=== PATIENT | female | born 1945 | race Caucasian/White ===

== ENCOUNTER → 2016-05-08 | Outpatient (CLI) | payer MEDICARE, BC ==
[2016-05-08 15:35] LABS: CH 29.5; HCT 37.6 % (34.0-46.0); HDW 2.72; HGB 11.7 gm/dL (11.4-16.0); Hypochromasia Slight; MCH 29.6 pg (25.0-35.0); MCHC 31.1 g/dL (31.0-37.0); MCV 95.3 fL (80.0-100.0); Mean Platelet Volume 6.1; RBC 3.95 m/uL (3.80-5.40); RDW 13.4 % (11.5-15.5); WBC 12.5 k/uL (3.8-10.6)
[2016-05-08 15:44] LABS: ALT 42 U/L (9-52); AST 31 U/L (14-36); Alkaline Phosphatase 99 U/L (38-126); Anion Gap 14 mmol/L; Blood Urea Nitrogen 12 mg/dL (7-17); Calcium 9.8 mg/dL (8.4-10.2); Carbon Dioxide 29 mmol/L (22-30); Chloride 100 mmol/L (98-107); Cholesterol 209 mg/dL (<200); Glucose 103 mg/dL (74-99); HDL Cholesterol 75 mg/dL (40-60); Non-African American GFR(MDRD) >60 (>60 ml/min/1.73 sqM); Sodium 143 mmol/L (137-145); Total Bilirubin 0.5 mg/dL (0.2-1.3); Triglycerides 178 mg/dL (<150)
== END | disposition home or self-care (01) ==
LOC: LABWHC1 14:53
PROVIDERS: ATTEND Physician Assistant Medical
DX: I25.10 Atherosclerotic heart disease of native coronary artery without angina pectoris (principal); I10 Essential (primary) hypertension; E55.9 Vitamin D deficiency, unspecified
CPT/HCPCS: 36415; 80053; 80061; 82306; 84443; 85027

== ENCOUNTER → 2016-12-01 | Outpatient (CLI) | payer MEDICARE, BC ==
[2016-12-01 15:38] LABS: CH 30.9; CHCM 32.6; HCT 40.8 % (34.0-46.0); HDW 2.39; HGB 12.8 gm/dL (11.4-16.0); MCH 29.9 pg (25.0-35.0); MCHC 31.4 g/dL (31.0-37.0); MCV 95.3 fL (80.0-100.0); Mean Platelet Volume 7.6; RBC 4.28 m/uL (3.80-5.40); RDW 14.7 % (11.5-15.5); WBC 8.1 k/uL (3.8-10.6)
[2016-12-01 15:42] LABS: Partial Thromboplastin Time 25.4 sec (22.0-30.0); Prothrombin Time 10.2 sec (9.0-12.0)
[2016-12-01 15:51] LABS: ALT 35 U/L (9-52); AST 26 U/L (14-36); Alkaline Phosphatase 101 U/L (38-126); Anion Gap 11 mmol/L; Blood Urea Nitrogen 16 mg/dL (7-17); Calcium 9.5 mg/dL (8.4-10.2); Carbon Dioxide 29 mmol/L (22-30); Chloride 101 mmol/L (98-107); Cholesterol 157 mg/dL (<200); Glucose 97 mg/dL (74-99); HDL Cholesterol 51 mg/dL (40-60); Non-African American GFR(MDRD) >60 (>60 ml/min/1.73 sqM); Potassium 3.6 mmol/L (3.5-5.1); Sodium 141 mmol/L (137-145); Total Bilirubin 0.5 mg/dL (0.2-1.3); Total Protein 6.4 g/dL (6.3-8.2)
== END | disposition home or self-care (01) ==
LOC: LABWHC1 14:55
PROVIDERS: ATTEND Physician Assistant Medical
DX: E78.5 Hyperlipidemia, unspecified (principal); I25.10 Atherosclerotic heart disease of native coronary artery without angina pectoris; T14.8 Other injury of unspecified body region; Z79.01 Long term (current) use of anticoagulants
CPT/HCPCS: 36415; 80053; 80061; 84443; 85027; 85610; 85730

== ENCOUNTER → 2017-03-03 | Outpatient (CLI) | payer MEDICARE, BC ==
[2017-03-03 14:01] VITALS: BP 117/55; PULSE 60; RESP 18; TEMP 97.8
--- NOTE | 2017-03-03 15:22 | P.CONS ---
History of Present Illness - Reason for Consult Consult date: 03/03/17 - History of Present Illness Since years old female with a chronic history of severe low back pain started several years ago, and she was diagnosed with lumbar degenerative disc disease lumbar facet arthropathy, she had the lumbar laminectomy and fusion surgery done by Dr. Horan at [facility] in January 2016, after the surgery patient started complaining of severe low back pain," mainly in the low back area on the right side, she denies any numbness or tingling sensation and reported that the pain intensity interfere with her ability to function and do activities of daily livings, denies any fever or night sweats which she denies any change in the bowel movement.or Urinations, no motor or sensory deficit, pain is constant interfere with quality of 5 intensity of the pain fluctuates between 4/10 increased to 8-9/10 , currently on pain medication [place] 7.5/325 3 times a day and Neurontin 600 mg both of them is not helping enough to control her pain, denies any side effect of the medication she denies any excessive drowsiness or sleepiness Past Medical History Past Medical History: CVA/TIA, GERD/Reflux, Hyperlipidemia, Hypertension, Myocardial Infarction ([place]), Osteoarthritis (OA), Skin Disorder Additional Past Medical History / Comment(s): hx migraines, Stroke-11/2015- drooping of upper lip, heart murmer, callus on left breast, Last Myocardial Infarction Date:: 10/2011 History of Any Multi-Drug Resistant Organisms: None Reported Past Surgical History: Appendectomy, Coronary Bypass/CABG, Heart Catheterization , Hysterectomy, Orthopedic Surgery Additional Past Surgical History / Comment(s): rt knee surgery, chris cataracts, heart cath (05/2013)-pt not sure if any stents, CABG 2011, Past Anesthesia/Blood Transfusion Reactions: No Reported Reaction Smoking Status: Smoker, current status unknown - Past Family History Brother(s) Family Medical History: Cancer Medications and Allergies Home Medications Medication Instructions Recorded Confirmed Type Atorvastatin Calcium [Lipitor] 40 mg PO HS 12/02/15 03/03/17 History Ergocalciferol [Vitamin D2 50,000 unit PO WE 12/02/15 03/03/17 History (DRISDOL)] Hydrocodone/Acetaminophen 7.5 mg PO TID 12/02/15 03/03/17 History [Hydrocodon-Acetaminoph 7.5-325] Isosorbide Mononitrate ER [Imdur] 60 mg PO DAILY 12/02/15 03/03/17 History Metoprolol Tartrate [Lopressor] 25 mg PO BID 12/02/15 03/03/17 History Omeprazole [PriLOSEC] 40 mg PO HS 12/02/15 03/03/17 History Vit C/E/Zn/Coppr/Lutein/Zeaxan 1 cap PO BID 12/02/15 03/03/17 History [Preservision Areds 2 Softgel] Clopidogrel [Plavix] 75 mg PO DAILY 12/05/15 03/03/17 History Aspirin [Adult Low Dose Aspirin EC] 81 mg PO DAILY 01/22/16 03/03/17 History Multivitamins, Thera [Multivitamin 1 tab PO DAILY 01/22/16 03/03/17 History (formulary)] Calcium Carb-Vit D 500Mg-200Un 1 tab PO BID 03/03/17 03/03/17 History [Oscal 500+D] Celecoxib [CeleBREX] 100 mg PO BID PRN #60 cap 03/03/17 Rx Diclofenac Sodium Gel [Voltaren 2 gm TOPICAL BID PRN #1 tube 03/03/17 Rx Gel] Furosemide [Lasix] 1 tab PO DAILY 03/03/17 03/03/17 History Gabapentin 1 tab PO BID 03/03/17 03/03/17 History traZODone HCL 1.5 tab PO HS 03/03/17 03/03/17 History Allergies Allergy/AdvReac Type Severity Reaction Status Date / Time latex Allergy Rash/Hives Verified 01/22/16 09:07 Physical Exam Vitals: Vital Signs Temp Pulse Resp BP Pulse Ox 03/03/17 13:48 97.8 F 60 18 117/55 96 Intake and Output 03/03/17 03/03/17 03/03/17 06:59 14:59 22:59 Other: Weight 61.235 kg Patient Weight 03/04/17 06:59 Weight 61.235 kg Social history : smoker , NO ETOH , NO Illegal drugs use Review of Systems : 1- Constitutional : no chills , no fever , no night sweats , 2- Ears : no ear discharge , no change in hearing 3-Nose, Mouth ,Throat ; no bleeding gums, no sore throat , no epistaxis , 4-Cardiovascular : Denies chest pain, , no orthopnea , no palpitation 5-Respiratory : Denies cough , no dyspnea , no hemoptysis 6-Gastrointestinal :, no change in bowel habits , no coffee- ground emesis . 7-Genitourinary : No hematuria , no discharge , no incontinence, 8-Musculoskeletal : No gait dysfunction , report low back pain , 9- Neurological : no ataxia , no tremor , no sezure , 10-Psychatric , no suicidal ideation no hallucination 11- Endocrine : no cold intolerence , no polyuria , no polydypsia , 12-Hematologic : no easy bleeding , no easy brusing , 13-Allergic / immunology : no angioedema , no wheezing ,no allergic rhinitis 14-Integumentary : no brttle nails , no change hair / nails , no foot/leg ulcers . Physical Examinations : 1-Constitutional : Cooperative , not in acute distress . 2-HEENT : nech ; supple , no Lymphadenopathy , no Thyromegaly , :eyes , no icterus, no photophobia . ENT : , normal oropharynx , no Thrush 3- Respiratory : Chest clear to auscultations Bilaterally , no wheezing . 4- Cardiovascular : regular rate and rhythem , S1 , S2 , no S3 , no S4. 5- Gastrointestinal: abdomen soft no tenderness , no organomegally . 6- Genitourinary : Defferred . 7-Integumentary : No cellulitis , no ulcers , normal skin turgor , no cyanotic . 8- neurologic : Cranial nerve II to XII intact , no focal neurological deffecit 9-psychatric : alert , oriented X 3 , appropriate affect , intact judgment and insight . 10-Lymphatic : no Lymphadenopathy. 11- musculoskeltal: Lumber spine moter stegnth lower extremities ,thigh and legs 5/5 Right side , 5/5 Left side deep tendon reflexes : normal Knee Jerk , normal ankle Jerk Negative lumber facet Loading Test Range of motion of the lumbar spine Flexion 60 degrees, extension 30 degrees strait leg raising test negative bilaterally Fabere test negative bilaterally Sever tenderness over the Sacroiliac joint on the Right side Results Comments: MRI of the lumbar spine done 2016 multilevel lumbar degenerative disc disease and multilevel lumbar facet arthropathy Assessment and Plan Plan: Assessment and plan= Right sacroiliitis history of lumbar laminectomy and fusion surgery ,but clinically this is not causing her back pain, Patient could benefit from Celebrex 100 mg twice a day ( we can not Use standard NSAID because patient currently on Plavix , would have to use a Nelson 2 inhibitor only, as patient had increased risk of bleeding when the regular NSAID , and also patient could benefit from local VOLTAREN gel 1% to be applied to the right buttock area, if patient continued to have pain then we can consider doing a right sacroiliac joint steroid injections under fluoroscopy guidance, but this has to be evaluated next visit , Time with Patient: Greater than 30
== END | disposition home or self-care (01) ==
LOC: PNWHC3 13:15
PROVIDERS: ATTEND Specialist
DX: M46.1 Sacroiliitis, not elsewhere classified (principal); E78.5 Hyperlipidemia, unspecified; I10 Essential (primary) hypertension; Z98.1 Arthrodesis status; Z79.891 Long term (current) use of opiate analgesic; Z79.899 Other long term (current) drug therapy; Z79.02 Long term (current) use of antithrombotics/antiplatelets; Z91.040 Latex allergy status
CPT/HCPCS: 99211

== ENCOUNTER → 2017-05-17 | Outpatient (CLI) | payer MEDICARE, BC ==
[2017-05-17 10:49] LABS: HCT 40.9 % (34.0-46.0); HGB 12.9 gm/dL (11.4-16.0); MCH 30.3 pg (25.0-35.0); MCHC 31.5 g/dL (31.0-37.0); Mean Platelet Volume 7.1; Platelet Count 266 k/uL (150-450); RBC 4.26 m/uL (3.80-5.40); RDW 13.3 % (11.5-15.5)
[2017-05-17 11:04] LABS: ALT 33 U/L (9-52); AST 24 U/L (14-36); Albumin 3.8 g/dL (3.5-5.0); Alkaline Phosphatase 108 U/L (38-126); Anion Gap 9 mmol/L; Blood Urea Nitrogen 20 mg/dL (7-17); Calcium 9.5 mg/dL (8.4-10.2); Carbon Dioxide 29 mmol/L (22-30); Chloride 104 mmol/L (98-107); Cholesterol 153 mg/dL (<200); Glucose 110 mg/dL (74-99); HDL Cholesterol 52 mg/dL (40-60); LDL Cholesterol,Calculated 83 mg/dL (0-99); Potassium 3.8 mmol/L (3.5-5.1); Sodium 142 mmol/L (137-145); Total Bilirubin 0.5 mg/dL (0.2-1.3); Total Protein 6.3 g/dL (6.3-8.2); Triglycerides 90 mg/dL (<150)
== END | disposition home or self-care (01) ==
LOC: LABWHC1 10:15
PROVIDERS: ATTEND Physician Assistant Medical
DX: E55.9 Vitamin D deficiency, unspecified (principal); M85.80 Other specified disorders of bone density and structure, unspecified site; M19.90 Unspecified osteoarthritis, unspecified site; I25.10 Atherosclerotic heart disease of native coronary artery without angina pectoris; E78.5 Hyperlipidemia, unspecified
CPT/HCPCS: 36415; 80053; 80061; 82306; 84443; 85027

== ENCOUNTER 2017-11-27 14:05 | Emergency (ER) | payer MEDICARE, BC ==
--- NOTE | 2017-11-27 18:03 | ED ---
General Adult HPI - General Chief complaint: Shortness of Breath Stated complaint: LUQ Back pain Time Seen by Provider: 11/27/17 17:40 Source: patient, family, RN notes reviewed Mode of arrival: wheelchair Limitations: no limitations - History of Present Illness Initial comments: Patient 72-year-old female presented to the emergency room today with a chief complaint of left-sided back pain worse with deep inspiration or cough. She does not that symptoms started yesterday when she woke up in the morning coughing. She states that since that time attached takes deep breath or coughs she has this sharp pain located in the left side of her back. Patient does admit that morning cough is normal for her she is a smoker. Patient denies any other complaints or symptoms currently. Patient denies any recent fever, chills , shortness of breath, chest pain, abdominal pain, nausea or vomiting, numbness or tingling, dysuria or hematuria, constipation or diarrhea, headaches or visual changes, or any other complaints. - Related Data Home Medications Medication Instructions Recorded Confirmed Atorvastatin Calcium [Lipitor] 40 mg PO HS 12/02/15 03/03/17 Ergocalciferol [Vitamin D2 50,000 unit PO WE 12/02/15 03/03/17 (DRISDOL)] Hydrocodone/Acetaminophen 7.5 mg PO TID 12/02/15 03/03/17 [Hydrocodone-Acetamin 7.5-325] Isosorbide Mononitrate ER [Imdur] 60 mg PO DAILY 12/02/15 03/03/17 Metoprolol Tartrate [Lopressor] 25 mg PO BID 12/02/15 03/03/17 Omeprazole [PriLOSEC] 40 mg PO HS 12/02/15 03/03/17 Vit C/E/Zn/Coppr/Lutein/Zeaxan 1 cap PO BID 12/02/15 03/03/17 [Preservision Areds 2 Softgel] Clopidogrel [Plavix] 75 mg PO DAILY 12/05/15 03/03/17 Aspirin [Adult Low Dose Aspirin EC] 81 mg PO DAILY 01/22/16 03/03/17 Multivitamins, Thera [Multivitamin 1 tab PO DAILY 01/22/16 03/03/17 (formulary)] Calcium Carb-Vit D 500Mg-200Un 1 tab PO BID 03/03/17 03/03/17 [Oscal 500+D] Furosemide [Lasix] 1 tab PO DAILY 03/03/17 03/03/17 Gabapentin 1 tab PO BID 03/03/17 03/03/17 traZODone HCL 1.5 tab PO HS 03/03/17 03/03/17 Previous Rx's Medication Instructions Recorded Celecoxib [CeleBREX] 100 mg PO BID PRN #60 cap 03/03/17 Diclofenac Sodium Gel [Voltaren 2 gm TOPICAL BID PRN #1 tube 03/03/17 Gel] Albuterol Nebulized [Ventolin 2.5 mg INHALATION Q4H PRN 10 Days 11/27/17 Nebulized] nebu Azithromycin [Zithromax Z-pack] 0 mg PO DIRECTED #6 tab 11/27/17 Allergies Allergy/AdvReac Type Severity Reaction Status Date / Time latex Allergy Rash/Hives Verified 01/22/16 09:07 Review of Systems ROS Statement: Those systems with pertinent positive or pertinent negative responses have been documented in the HPI. ROS Other: All systems not noted in ROS Statement are negative. Past Medical History Past Medical History: CVA/TIA, GERD/Reflux, Hyperlipidemia, Hypertension, Myocardial Infarction ([place]), Osteoarthritis (OA), Skin Disorder Additional Past Medical History / Comment(s): hx migraines, Stroke-11/2015- drooping of upper lip, heart murmer, callus on left breast, Last Myocardial Infarction Date:: 10/2011 History of Any Multi-Drug Resistant Organisms: None Reported Past Surgical History: Appendectomy, Back Surgery, Coronary Bypass/CABG, Heart Catheterization, Hysterectomy, Orthopedic Surgery Additional Past Surgical History / Comment(s): rt knee surgery, chris cataracts, heart cath (05/2013)-pt not sure if any stents, CABG 2011 Past Anesthesia/Blood Transfusion Reactions: No Reported Reaction Past Psychological History: No Psychological Hx Reported Smoking Status: Current every day smoker Past Alcohol Use History: None Reported Past Drug Use History: None Reported - Past Family History Brother(s) Family Medical History: Cancer General Exam - General Exam Comments Initial Comments: General: The patient is awake and alert, in no distress, and does not appear acutely ill. Eye: Pupils are equal, round and reactive to light, extra-ocular movements are intact. No nystagmus. There is normal conjunctiva bilaterally. No signs of icterus. Ears, nose, mouth and throat: There are moist mucous membranes and no oral lesions. Neck: The neck is supple, there is no tenderness or JVD. Cardiovascular: There is a regular rate and rhythm. No murmur, rub or gallop is appreciated. Respiratory: Decreased lung sounds bilaterally with expiratory wheeze. are non- labored, breath sounds are equal. No stridor, rales, or rhonchi. Musculoskeletal: Normal ROM, no tenderness. Strength 5/5. Sensation intact. Pulses equal bilaterally 2+. Neurological: A&O x 3. CN II-XII intact, There are no obvious motor or sensory deficits. Coordination appears grossly intact. Speech is normal. Skin: Skin is warm and dry and no rashes or lesions are noted. Psychiatric: Cooperative, appropriate mood & affect, normal judgment. Limitations: no limitations Course Vital Signs 11/27/17 11/27/17 15:20 18:13 Temperature 97.8 F Pulse Rate 47 L Respiratory 16 20 Rate Blood Pressure 116/70 O2 Sat by Pulse 98 Oximetry EKG Findings - EKG Comments: EKG Findings:: EKG performed at 1747: Shows bradycardia with first-degree AV block at 43 bpm. TX interval 230. QRS 134. QT/QTC 500/422. EKG shows evidence for a left axis deviation and left bundle branch block which was seen previously on EKG on 12/05/2015. Medical Decision Making - Medical Decision Making Patient's labs been reviewed. Patient does take Plavix. Patient's chest x-ray does reveal a early infiltrate on the left side were patient is experiencing pain with the cough. Patient does have a nebulizer machine at home. Will be given albuterol for her breathing treatments and started on antibiotics given dose of Rocephin here in emergency room. Case was discussed with attending physician Dr. Anderson. Results discussed with patient. Patient states understanding and is in agreement with the plan. - Lab Data Result diagrams: 11/27/17 18:10 11/27/17 18:10 Lab Results 11/27/17 11/27/17 11/27/17 Range/Units 18:10 18:10 18:10 WBC 8.9 (3.8-10.6) k/uL RBC 4.19 (3.80-5.40) m/uL Hgb 12.8 (11.4-16.0) gm/dL Hct 39.9 (34.0-46.0) % MCV 95.3 (80.0-100.0) fL MCH 30.6 (25.0-35.0) pg MCHC 32.1 (31.0-37.0) g/dL RDW 13.2 (11.5-15.5) % Plt Count 278 (150-450) k/uL Neutrophils % 65 % Lymphocytes % 24 % Monocytes % 4 % Eosinophils % 3 % Basophils % 1 % Neutrophils # 5.8 (1.3-7.7) k/uL Lymphocytes # 2.2 (1.0-4.8) k/uL Monocytes # 0.4 (0-1.0) k/uL Eosinophils # 0.3 (0-0.7) k/uL Basophils # 0.1 (0-0.2) k/uL PT (9.0-12.0) sec INR (<1.2) APTT (22.0-30.0) sec D-Dimer (<0.60) mg/L FEU Sodium 140 (137-145) mmol/L Potassium 4.6 (3.5-5.1) mmol/L Chloride 108 H (98-107) mmol/L Carbon Dioxide 26 (22-30) mmol/L Anion Gap 6 mmol/L BUN 17 (7-17) mg/dL Creatinine 0.70 (0.52-1.04) mg/dL Est GFR (CKD-EPI)AfAm >90 (>60 ml/min/1.73 sqM) Est GFR (CKD-EPI)NonAf 86 (>60 ml/min/1.73 sqM) Glucose 158 H (74-99) mg/dL Calcium 9.3 (8.4-10.2) mg/dL Total Bilirubin 0.5 (0.2-1.3) mg/dL AST 20 (14-36) U/L ALT 22 (9-52) U/L Alkaline Phosphatase 80 (38-126) U/L Total Creatine Kinase 25 L (30-135) U/L CK-MB (CK-2) 0.7 (0.0-2.4) ng/mL CK-MB (CK-2) Rel Index 2.8 Troponin I <0.012 (0.000-0.034) ng/mL Total Protein 6.2 L (6.3-8.2) g/dL Albumin 3.7 (3.5-5.0) g/dL 11/27/17 Range/Units 18:10 WBC (3.8-10.6) k/uL RBC (3.80-5.40) m/uL Hgb (11.4-16.0) gm/dL Hct (34.0-46.0) % MCV (80.0-100.0) fL MCH (25.0-35.0) pg MCHC (31.0-37.0) g/dL RDW (11.5-15.5) % Plt Count (150-450) k/uL Neutrophils % % Lymphocytes % % Monocytes % % Eosinophils % % Basophils % % Neutrophils # (1.3-7.7) k/uL Lymphocytes # (1.0-4.8) k/uL Monocytes # (0-1.0) k/uL Eosinophils # (0-0.7) k/uL Basophils # (0-0.2) k/uL PT 10.5 (9.0-12.0) sec INR 1.1 (<1.2) APTT 24.9 (22.0-30.0) sec D-Dimer 0.56 (<0.60) mg/L FEU Sodium (137-145) mmol/L Potassium (3.5-5.1) mmol/L Chloride (98-107) mmol/L Carbon Dioxide (22-30) mmol/L Anion Gap mmol/L BUN (7-17) mg/dL Creatinine (0.52-1.04) mg/dL Est GFR (CKD-EPI)AfAm (>60 ml/min/1.73 sqM) Est GFR (CKD-EPI)NonAf (>60 ml/min/1.73 sqM) Glucose (74-99) mg/dL Calcium (8.4-10.2) mg/dL Total Bilirubin (0.2-1.3) mg/dL AST (14-36) U/L ALT (9-52) U/L Alkaline Phosphatase (38-126) U/L Total Creatine Kinase (30-135) U/L CK-MB (CK-2) (0.0-2.4) ng/mL CK-MB (CK-2) Rel Index Troponin I (0.000-0.034) ng/mL Total Protein (6.3-8.2) g/dL Albumin (3.5-5.0) g/dL Disposition Clinical Impression: CAP (community acquired pneumonia) Disposition: HOME SELF-CARE Condition: Good Instructions: Community Acquired Pneumonia (ED) Additional Instructions: Please use medication as discussed. Please follow-up with family doctor in the next 2 days of symptoms have not improved. Please return to emergency room if the symptoms increase or worsen or for any other concerns. Prescriptions: Albuterol Nebulized [Ventolin Nebulized] 2.5 mg INHALATION Q4H PRN 10 Days nebu PRN Reason: Cough Azithromycin [Zithromax Z-pack] 0 mg PO DIRECTED #6 tab Is patient prescribed a controlled substance at d/c from ED?: No Referrals: Samia Aly PAC [Family Provider] - 1-2 days Time of Disposition: 19:53
[2017-11-27 18:54] LABS: Basophils # (A) 0.1 k/uL (0-0.2); Basophils % (A) 1 %; Eosinophils # (A) 0.3 k/uL (0-0.7); Eosinophils % (A) 3 %; HCT 39.9 % (34.0-46.0); HGB 12.8 gm/dL (11.4-16.0); Lymphocytes # (A) 2.2 k/uL (1.0-4.8); Lymphocytes % (A) 24 %; MCH 30.6 pg (25.0-35.0); MCHC 32.1 g/dL (31.0-37.0); MCV 95.3 fL (80.0-100.0); Mean Platelet Volume 6.8; Monocytes # (A) 0.4 k/uL (0-1.0); Monocytes % (A) 4 %; Neutrophils # (A) 5.8 k/uL (1.3-7.7); Neutrophils % (A) 65 %; Platelet Count 278 k/uL (150-450); RBC 4.19 m/uL (3.80-5.40); RDW 13.2 % (11.5-15.5); WBC 8.9 k/uL (3.8-10.6)
[2017-11-27 19:10] LABS: Creatine Kinase 25 U/L (30-135)
[2017-11-27 19:13] LABS: ALT 22 U/L (9-52); AST 20 U/L (14-36); Albumin 3.7 g/dL (3.5-5.0); Alkaline Phosphatase 80 U/L (38-126); Anion Gap 6 mmol/L; Blood Urea Nitrogen 17 mg/dL (7-17); Calcium 9.3 mg/dL (8.4-10.2); Carbon Dioxide 26 mmol/L (22-30); Chloride 108 mmol/L (98-107); Glucose 158 mg/dL (74-99); Potassium 4.6 mmol/L (3.5-5.1); Sodium 140 mmol/L (137-145); Total Bilirubin 0.5 mg/dL (0.2-1.3); Total Protein 6.2 g/dL (6.3-8.2)
[2017-11-27 19:23] LABS: Creatine Kinase MB 0.7 ng/mL (0.0-2.4); Troponin I <0.012 ng/mL (0.000-0.034)
[2017-11-27 19:31] LABS: D-Dimer 0.56 mg/L FEU (<0.60); INR 1.1 (<1.2); Partial Thromboplastin Time 24.9 sec (22.0-30.0); Prothrombin Time 10.5 sec (9.0-12.0)
--- NOTE | 2017-11-27 19:46 | XR ---
EXAMINATION TYPE: XR chest 2V DATE OF EXAM: 11/27/2017 COMPARISON: 04/06/2016 INDICATION: Pain TECHNIQUE: Frontal and lateral views of the chest are obtained. FINDINGS: The heart size is normal. The pulmonary vasculature is slightly prominent. Diffuse increased lung markings can be related to some pulmonary edema. There is slightly increased d ensity in the left upper lobe. Correlate for atelectasis. Developing pneumonia could be considered. Pulmonary contusion could be considered if there is been trauma. IMPRESSION: 1. Suggestion of mild infiltrate periphery left upper lobe. Atelectasis or developing pneumonia could be considered. 2. Suggestion of some mild prominence of the pulmonary vascular markings
[2017-11-27] MEDS ORDERED: cefTRIAXone IN SWFI 1,000 MG/10 ML SYRINGE IVP STA (19:50)
[2017-11-27 20:08] VITALS: BP 160/66; PULSE 51; RESP 18; TEMP 97.1
== END 2017-11-27 20:07 | disposition home or self-care (01) ==
LOC: EC 14:05
DX: J18.9 Pneumonia, unspecified organism (principal); M54.9 Dorsalgia, unspecified; K21.9 Gastro-esophageal reflux disease without esophagitis; E78.5 Hyperlipidemia, unspecified; I10 Essential (primary) hypertension; I25.2 Old myocardial infarction; M19.90 Unspecified osteoarthritis, unspecified site; F17.200 Nicotine dependence, unspecified, uncomplicated; Z86.73 Personal history of transient ischemic attack (TIA), and cerebral infarction without residual deficits; Z79.82 Long term (current) use of aspirin; Z79.891 Long term (current) use of opiate analgesic; Z79.899 Other long term (current) drug therapy; Z79.01 Long term (current) use of anticoagulants; Z91.040 Latex allergy status; Z95.818 Presence of other cardiac implants and grafts; Z95.1 Presence of aortocoronary bypass graft
CPT/HCPCS: 36415; 71046; 80053; 82550; 82553; 84484; 85025; 85379; 85610; 85730; 93005; 99285

== ENCOUNTER → 2018-04-28 | Outpatient (CLI) | payer MEDICARE, BC ==
[2018-04-29 04:09] LABS: Albumin 4.3 g/dL (3.80-4.90); Albumin/Globulin Ratio 2.53 (1.20-2.10); Anion Gap 6.2 mmol/L (4.00-12.00); Calcium 9.2 mg/dL (8.7-10.3); Carbon Dioxide 27.8 mmol/L (21.6-31.8); Globulin 1.7 g/dL (1.6-3.3); LDL Cholesterol,Calculated 107.4 mg/dL (0.0-131.0); Potassium 4.9 mmol/L (3.5-5.5); Total Bilirubin 0.5 mg/dL (0.3-1.2); VLDL Calculation 21.6 mg/dL (5.00-40.00)
== END ==
LOC: LABWHC1 14:50
PROVIDERS: ATTEND Internal Medicine Interventional Cardiology
DX: I10 Essential (primary) hypertension (principal); I25.10 Atherosclerotic heart disease of native coronary artery without angina pectoris; E55.9 Vitamin D deficiency, unspecified
CPT/HCPCS: 36415; 80053; 80061; 82306; 84443

== ENCOUNTER → 2018-04-28 | Outpatient (CLI) | payer MEDICARE, BC ==
[2018-04-28 16:10] LABS: HCT 41.3 % (34.0-46.0); HGB 13.5 gm/dL (11.4-16.0); MCH 31.3 pg (25.0-35.0); MCHC 32.6 g/dL (31.0-37.0); Mean Platelet Volume 7.1; Platelet Count 249 k/uL (150-450); RDW 13.6 % (11.5-15.5); WBC 9.2 k/uL (3.8-10.6)
== END ==
LOC: LABPAT 14:48
PROVIDERS: ATTEND Internal Medicine Interventional Cardiology
DX: Z01.812 Encounter for preprocedural laboratory examination (principal); I70.213 Atherosclerosis of native arteries of extremities with intermittent claudication, bilateral legs; I10 Essential (primary) hypertension; I25.10 Atherosclerotic heart disease of native coronary artery without angina pectoris
CPT/HCPCS: 85027

== ENCOUNTER → 2018-05-17 | Day surgery (SDC) | payer MEDICARE, BC ==
[2018-05-12 16:13] VITALS: BMI 22.3
[~2018-05-17] MED LIST: ASPIRIN 81 MG ONE; ATROPINE SULFATE 0.1 MG/ML 10ML SYRINGE ONE; HYDROcodone/APAP 7.5-325MG 1 EACH TAB ONE; IOPAMIDOL-300 100ML BTL INJ ONE; LIDOCAINE 2% (PF) 20 MG/ML 10 ML AMP SQ ONE; MIDAZOLAM 2 MG/2 ML VIAL IV ONE; SODIUM CHLORIDE 0.9% 1,000 ML IV SCH; SODIUM CHLORIDE 0.9% 1,000 ML in EMPTY BAG 1 BAG IV ONE; fentaNYL (PF) 50 MCG/ML 5 ML AMP IVP PRN; hydrALAZINE HCL 20 MG/ML 1 ML VIAL IVP PRN
[2018-05-17 07:05] VITALS: TEMP 97.6
[2018-05-17] MEDS: fentaNYL (PF) 50 MCG/ML 2 ML AMP IV ONE ×2 (07:52→08:08)
--- NOTE | 2018-05-17 09:26 | AN ---
ANGIOGRAPHY REPORT DATE OF SERVICE: 05/17/2018 PERFORMING PHYSICIAN: Chuy Cespedes MD, Airport Traffic Controller. PROCEDURE PERFORMED: 1. An abdominal aortogram. 2. Bilateral lower extremities runoff. INDICATION: This is a pleasant 73-year-old female patient with coronary artery disease and prior coronary artery bypass grafting as well as hypertension and dyslipidemia who was experiencing bilateral lower extremities discomfort. She underwent a noninvasive study and that revealed severe PAD. Because of that, she was brought today to undergo an abdominal aortogram and bilateral lower extremity runoff. APPROACH: Right common femoral artery. COMPLICATION: None. LEVEL OF SEDATION: Moderate sedation length of 15 minutes. PROCEDURE DESCRIPTION: After obtaining an informed consent, the patient was brought to the director of cath lab. The right common femoral artery was cannulated using micropuncture technique and a micropuncture wire passed easily, then I placed a 6-Jordanian sheath in the right common femoral artery. After that, I did an abdominal aortogram and bilateral lower extremities runoff using 4- Jordanian pigtail catheter which was initially placed at the level of the renal arteries, then it was pulled into above the bifurcation of the aorta to right and left common iliac arteries. The procedure was completed without any complication. SELECTIVE PERIPHERAL ANGIOGRAM: 1. The aorta appeared to be calcified with mild disease only. 2. COMMON ILIAC ARTERIES: The right common iliac artery appeared to have intermediate disease only and the left common iliac artery appeared to be normal. 3. INTERNAL ILIAC ARTERIES: The right and left internals are patent. 4. EXTERNAL ILIAC ARTERIES: The right and left external iliac arteries appeared to be normal. 5. COMMON FEMORAL ARTERIES: The right and left common have mild disease only. 6. PROFUNDA: The right and left profunda are patent. 7. SFA: The right SFA appears to have mild disease only and the left SFA is subtotally occluded in the midportion. 8. POPLITEAL: The right and left popliteal appeared to be normal. 9. BELOW THE KNEE: There are 3 vessel runoff below the knee bilaterally. CONCLUSION: 1. Intermediate disease involving the right common iliac artery. 2. Subtotally occluded left SFA. POSTPROCEDURE MANAGEMENT: 1. ORACLE WMS CONSULTANT of the left SFA. 2. At the same time, I will assess the severity of the right common iliac artery when I approach the right groin. MMODL / IJN: [id number] /
[2018-05-17 09:42] VITALS: RESP 18
[2018-05-17 10:11] VITALS: BP 105/64; PULSE 48
--- NOTE | 2018-05-17 14:34 | IR ---
EXAMINATION TYPE: IR angio abdominal w runoff DATE OF EXAM: 05/17/2018 CLINICAL HISTORY: Peripheral vascular disease, left leg pain. TECHNIQUE: Fluoroscopy. COMPARISON: None. FINDINGS: Fluoroscopic guidance was provided during abdominal angiogram with lower extremity runoff procedure performed by Dr. Cespedes. A total of 1.3 minutes of fluoroscopic time was utilized during the procedure and 6 cine runs are acquired. Images acquired show access via right groin with subsequent angiogram and lower extremity runoff. Surgical change L4-L5 level is incidentally seen. Please refer to procedure note as I was not present nor performed procedure for further details. IMPRESSION: As Above.
== END | disposition home or self-care (01) ==
LOC: CATHCVL 06:27
PROVIDERS: ATTEND Internal Medicine Interventional Cardiology
DX: I70.213 Atherosclerosis of native arteries of extremities with intermittent claudication, bilateral legs (principal); I10 Essential (primary) hypertension; I25.10 Atherosclerotic heart disease of native coronary artery without angina pectoris; I77.9 Disorder of arteries and arterioles, unspecified; I35.0 Nonrheumatic aortic (valve) stenosis; I70.0 Atherosclerosis of aorta; F17.210 Nicotine dependence, cigarettes, uncomplicated; Q21.1 Atrial septal defect; I95.2 Hypotension due to drugs; E78.5 Hyperlipidemia, unspecified; I25.2 Old myocardial infarction; Z79.02 Long term (current) use of antithrombotics/antiplatelets; Z79.82 Long term (current) use of aspirin; Z95.1 Presence of aortocoronary bypass graft; Z79.899 Other long term (current) drug therapy
CPT/HCPCS: 36200; 75625; 75716; C1769 ×4; C1894 ×2; J2250; J2001; J0461; J3010; Q9967

== ENCOUNTER → 2018-06-07 | Outpatient (CLI) | payer MEDICARE, BC ==
[2018-06-07 14:39] LABS: HCT 42.8 % (34.0-46.0); HGB 13.7 gm/dL (11.4-16.0); MCH 30.7 pg (25.0-35.0); MCV 95.9 fL (80.0-100.0); Mean Platelet Volume 6.9; Platelet Count 262 k/uL (150-450); RBC 4.46 m/uL (3.80-5.40); RDW 13.6 % (11.5-15.5); WBC 9.7 k/uL (3.8-10.6)
[2018-06-07 14:55] LABS: Potassium 4.6 mmol/L (3.5-5.1)
== END ==
LOC: LABPAT 14:07
PROVIDERS: ATTEND Internal Medicine Interventional Cardiology
DX: Z01.812 Encounter for preprocedural laboratory examination (principal); I25.10 Atherosclerotic heart disease of native coronary artery without angina pectoris; I73.9 Peripheral vascular disease, unspecified
CPT/HCPCS: 36415; 80051; 82565; 84520; 85027

== ENCOUNTER 2018-06-21 07:46 | Day surgery (SDC) | payer MEDICARE, BC ==
[2018-06-16 09:44] VITALS: BMI 22.6
[~2018-06-21 07:46] MED LIST changes: -ASPIRIN 81 MG ONE; -ATROPINE SULFATE 0.1 MG/ML 10ML SYRINGE ONE; -HYDROcodone/APAP 7.5-325MG 1 EACH TAB ONE; -IOPAMIDOL-300 100ML BTL INJ ONE; -LIDOCAINE 2% (PF) 20 MG/ML 10 ML AMP SQ ONE; -MIDAZOLAM 2 MG/2 ML VIAL IV ONE; -SODIUM CHLORIDE 0.9% 1,000 ML IV SCH; -fentaNYL (PF) 50 MCG/ML 5 ML AMP IVP PRN; -hydrALAZINE HCL 20 MG/ML 1 ML VIAL IVP PRN
[2018-06-21] MEDS ORDERED: ASPIRIN 81 MG ONE (08:03)
[2018-06-21] MEDS ORDERED: niCARdipine 25 MG/10 ML VIAL ONE (09:23)
[2018-06-21] MEDS ORDERED: SODIUM CHLORIDE 0.9% (PF) 10 ML VIAL ONE (09:23)
[2018-06-21] MEDS: fentaNYL (PF) 50 MCG/ML 2 ML AMP IV ONE ×2 (09:27→09:42)
[2018-06-21] MEDS ORDERED: MIDAZOLAM 2 MG/2 ML VIAL IV ONE ×2 (09:28→09:42)
[2018-06-21] MEDS ORDERED: LIDOCAINE 1% INJ 10MG/ML (20 ML MDV) SQ ONE ×3 (09:30→09:40)
[2018-06-21] MEDS ORDERED: HEPARIN SODIUM 1,000 UN/ML (10ML VL) IV ONE ×2 (09:42→09:43)
[2018-06-21] MEDS ORDERED: NITROGLYCERIN 1000MCG/10ML SYRINGE INTRAARTER ONE (10:15)
[2018-06-21] MEDS ORDERED: CLOPIDOGREL 75 MG TAB PO ONE (10:19)
[2018-06-21] MEDS ORDERED: IOPAMIDOL-250 100ML BTL INTRAARTER ONE (10:24)
[2018-06-21] MEDS ORDERED: ALBUTEROL NEBULIZED 2.5 MG/3 ML INHALATION PRN (10:30)
[2018-06-21] MEDS ORDERED: SODIUM CHLORIDE 0.9% 1,000 ML IV SCH (10:45)
--- NOTE | 2018-06-21 10:56 | LTR ---
June 21, 2018 Re: Elenita Monzon Dear Dr. Barros Ms. Elenita Monzon underwent successful atherectomy and balloon angioplasty of the left femoral artery with good angiographic results and without any complication. Thank you for allowing me to participate in her care and please do not hesitate to call with any question or concern. Sincerely, MD CARLITA Bravo / MARYANN: [id number] /
--- NOTE | 2018-06-21 11:11 | AN ---
ANGIOGRAPHY REPORT DATE OF SERVICE: June 21, 2018 PERFORMING PHYSICIAN: Chuy Cespedes MD, spa coordinator. PROCEDURE PERFORMED: 1. Selective left [id number] angiogram. 2. Selective left popliteal/SFA angiogram. 3. Selective right common iliac artery angiogram. 4. Selective right common femoral artery angiogram. 5. An atherectomy of the left SFA using the TurboHawk atherectomy device. 6. Successful balloon angioplasty of the left SFA using 5 x 80 mm drug-coated balloon which was with good angiographic results and without any complication. INDICATION: This is a pleasant 73-year-old female patient with known history of coronary artery disease and prior coronary artery bypass grafting as well as peripheral arterial disease as well as hypertension and dyslipidemia who was experiencing left leg intermittent claudication and underwent a peripheral angiogram and that showed critical disease involving the left SFA. Because of that, she was brought today to undergo a REAL ESTATE AGENT/BROKER of the left SFA. APPROACH: Right common femoral artery. COMPLICATION: None. LEVEL OF SEDATION: Moderate with sedation length of 56 minutes. PROCEDURE DESCRIPTION: After obtaining an informed consent, the patient was brought to cardiac corn lab technician. The right common femoral artery was cannulated using micropuncture technique, under ultrasound guidance, the micropuncture wire passed easily then I placed a 6-Malawian sheath 11 cm in the right common femoral artery. After that I did select the left SFA using a 4-Malawian Rim catheter and 0.035 Waterproof Advantage wire. After that I did exchange my 11 cm 6-Malawian sheath into 55 cm 6-Malawian Raabe sheath using 0.035 Waterproof Advantage wire. The tip of the Raabe sheath was positioned in the left common femoral artery. After that anticoagulation was initiated using heparin and the patient was given 6000 units of heparin. Subsequently, I did selective left [id number] angiogram, selective left popliteal and SFA angiogram and that revealed 3-vessel runoff below the knee on the left side with critical disease involving the left SFA. At that point I did cross the lesion in the left SFA using 0.[address] wire. Then I did atherectomy using the TurboHawk device with extraction of plaque. After that, I did balloon angioplasty initially using 4 mm regular balloon and then 5 mm x 80 mm drug coated balloon which was which was inflated for 3 minutes. The following angiogram showed good angiographic results with non-flow limiting dissection seen. I decided to stop at that point. After that I did pull the long sheath proximal to the right common iliac artery where I did a selective right common iliac artery angiogram which showed only mild disease in the right common iliac artery. The procedure was completed without any complication. I did exchange my long sheath into short sheath using a 0.035 Waterproof Advantage wire. POSTPROCEDURE MANAGEMENT: 1. Dual antiplatelet therapy. 2. Risk factors modifications. 3. Follow up with the patient. MMODL / IJN: [id number] /
[2018-06-21] MEDS: HYDROcodone/APAP 7.5-325MG 1 EACH TAB PO PRN ×2 (12:17→22:52)
[2018-06-21] MEDS ORDERED: SODIUM CHLORIDE 0.9% 1,000 ML IV ONE (13:16)
--- NOTE | 2018-06-21 14:20 | IR ---
Fluoroscopy HISTORY: Peripheral vascular occlusive disease 9.1 minutes fluoroscopy time supplied to the referring clinician. 6859 intraoperative C-arm images d ocument the procedure. See dictated report from cardiology.
[2018-06-21] MEDS: HYDROmorphone 0.5 MG/0.5 ML SYRINGE IVP PRN ×2 (15:13→19:03)
[2018-06-21] MEDS: VIT A,C & E-LUTEIN-MINERALS 1 EACH TAB PO SCH (20:18)
[2018-06-21] MEDS: CALCIUM CARB-VIT D 500MG-200UN 1 EACH TAB PO SCH (20:19)
[2018-06-21] MEDS ORDERED: ATORVASTATIN 80 MG TAB PO SCH (21:00)
[2018-06-21] MEDS ORDERED: traZODone HCL 50 MG TAB PO SCH (21:00)
[2018-06-21] MEDS ORDERED: PANTOPRAZOLE 40 MG TABLET PO SCH (21:00)
[2018-06-22] MEDS: HYDROmorphone 0.5 MG/0.5 ML SYRINGE IVP PRN (04:49)
[2018-06-22 07:23] LABS: Basophils # (A) 0.1 k/uL (0-0.2); Basophils % (A) 1 %; Eosinophils # (A) 0.2 k/uL (0-0.7); Eosinophils % (A) 3 %; HCT 35.9 % (34.0-46.0); HGB 11.6 gm/dL (11.4-16.0); Lymphocytes # (A) 1.8 k/uL (1.0-4.8); Lymphocytes % (A) 23 %; MCH 30.7 pg (25.0-35.0); MCHC 32.3 g/dL (31.0-37.0); MCV 95.1 fL (80.0-100.0); Mean Platelet Volume 7.1; Monocytes # (A) 0.5 k/uL (0-1.0); Monocytes % (A) 7 %; Neutrophils # (A) 5.2 k/uL (1.3-7.7); Neutrophils % (A) 65 %; Platelet Count 202 k/uL (150-450); RBC 3.78 m/uL (3.80-5.40)
[2018-06-22 07:34] LABS: Calcium 8.8 mg/dL (8.4-10.2); Potassium 3.7 mmol/L (3.5-5.1)
[2018-06-22] MEDS ORDERED: buPROPion XL 150 MG TAB.ER.24H PO SCH (09:00)
[2018-06-22] MEDS ORDERED: ASPIRIN 81 MG PO SCH (09:00)
[2018-06-22] MEDS ORDERED: FUROSEMIDE 40 MG TAB PO SCH (09:00)
[2018-06-22] MEDS ORDERED: ISOSORBIDE MONONITRATE ER 30 MG TAB.ER.24H PO SCH (09:00)
[2018-06-22] MEDS ORDERED: NICOTINE 14MG/24HR PATCH TRANSDERM SCH (09:00)
[2018-06-22] MEDS ORDERED: METOPROLOL TARTRATE 25 MG TAB PO SCH (09:00)
[2018-06-22] MEDS ORDERED: CLOPIDOGREL 75 MG TAB PO SCH (09:00)
[2018-06-22 09:02] VITALS: BP 117/58; PULSE 53; RESP 14; TEMP 97.5
[2018-06-22] MEDS: CALCIUM CARB-VIT D 500MG-200UN 1 EACH TAB PO SCH (09:12)
[2018-06-22] MEDS: VIT A,C & E-LUTEIN-MINERALS 1 EACH TAB PO SCH (09:13)
[2018-06-22] MEDS: HYDROcodone/APAP 7.5-325MG 1 EACH TAB PO PRN (09:23)
--- NOTE | 2018-06-22 10:27 | DS ---
DISCHARGE SUMMARY ADMISSION DATE: 06/21/2018 DATE OF DISCHARGE: 06/22/2018 BRIEF HISTORY: This is a pleasant 73-year-old female patient who was admitted to the hospital yesterday and underwent successful atherectomy and angioplasty of the left SFA with good angiographic results and without any complication from right groin approach. On follow up with her today, she is doing good. The right groin is soft with mild tenderness and without any bruises. She is going to be discharged home on dual anti-platelet therapy and follow up with the patient in a week in the office. MMODL / IJN: [id number] /
[2018-06-22] MEDS ORDERED: MULTIVITAMINS, THERA 1 EACH TAB PO SCH (12:00)
== END 2018-06-22 09:57 | disposition home or self-care (01) ==
LOC: CATHCVL 07:46 → 3SCARD 10:22 → CATHCVL 06-22 09:57
PROVIDERS: ATTEND Internal Medicine Interventional Cardiology
DX: I70.212 Atherosclerosis of native arteries of extremities with intermittent claudication, left leg (principal); I25.10 Atherosclerotic heart disease of native coronary artery without angina pectoris; I10 Essential (primary) hypertension; E78.5 Hyperlipidemia, unspecified; I35.0 Nonrheumatic aortic (valve) stenosis; F17.200 Nicotine dependence, unspecified, uncomplicated; Z95.1 Presence of aortocoronary bypass graft; Z79.82 Long term (current) use of aspirin; Z79.899 Other long term (current) drug therapy; Z91.040 Latex allergy status
CPT/HCPCS: 37225; 80048; 85025; C1894; C1769 ×4; C1714; C2623; C1725; S4990; J2250; J2001; J3010; J1644; J1170 ×2; Q9966

== ENCOUNTER → 2018-07-28 | Outpatient (CLI) | payer MEDICARE, BC ==
--- NOTE | 2018-07-28 18:32 | CT ---
EXAMINATION TYPE: CT angio chest with contrast and with 3-D reconstruction renderings DATE OF EXAM: 07/28/2018 6:01 PM COMPARISON: None HISTORY: chest pain, SOB CT DLP: 150.2 mGycm Automated exposure control for dose reduction was used. CONTRAST: CTA scan of the thorax is performed with IV Contrast, patient injected with 55cc mL of Isov ue 370, pulmonary embolism protocol. 3-D reconstructions. FINDINGS: AIRWAYS: Unremarkable. LUNGS: The lungs are clear but show hyperinflation with emphysematous changes noted. PLEURAL SPACES: There is no pleural effusion or pneumothorax. MEDIASTINUM: There is satisfactory enhancement of the pulmonary artery and its branches, without CT e vidence for pulmonary embolism. No acute aortic findings. No pericardial effusion or cardiomegaly, bu t post-CABG changes appreciated. There are no greater than 1 cm hilar or mediastinal lymph nodes. OTHER: No additional significant abnormality is seen. IMPRESSION: NO ACUTE PROCESS.
== END ==
LOC: RADCTMAIN 16:20
PROVIDERS: ATTEND Family Medicine
DX: R06.02 Shortness of breath (principal); R05 Cough
CPT/HCPCS: 82565; 84520; 71275; 36415; Q9967

== ENCOUNTER 2021-05-10 19:30 | Inpatient (IN) | payer MEDICARE, BC ==
--- NOTE | 2021-05-10 19:47 | ED ---
General Adult HPI - General Chief complaint: Neuro Symptoms/Deficit Stated complaint: Stroke Time Seen by Provider: 05/10/21 19:35 Source: patient, family, EMS Mode of arrival: EMS Limitations: physical limitation - History of Present Illness Initial comments: Patient presents to the ED by ambulance for evaluation with her daughters 2 at bedside. Per daughters, the patient has had right arm and right leg weakness since 1730 today. Per daughters, the patient's symptoms began after sitting on the toilet. Patient reports that her right leg weakness is chronic and at baseline, but she states that her right arm weakness is new. Patient denies any other area of focal weakness, and she denies numbness/sensory deficit. Patient denies having any pain other than her chronic and unchanged lumbar back pain. Patient denies fever or chills, headache, visual changes, speech difficulty, neck/upper back pain, extremity pain, chest pain or pressure, dyspnea, palpitations, dizziness, abdominal pain, nausea/vomiting/diarrhea, dysuria or urinary symptoms, or any other symptoms or complaints. Code Stroke was activated on patient's arrival to the ED. - Related Data Home Medications Medication Instructions Recorded Confirmed Atorvastatin Calcium [Lipitor] 80 mg PO HS 12/02/15 06/21/18 Hydrocodone/Acetaminophen 7.5 mg PO TID PRN 12/02/15 06/21/18 [Hydrocodone/Acetaminophen 7.5-325] Metoprolol Tartrate [Lopressor] 25 mg PO DAILY 12/02/15 06/21/18 Omeprazole [PriLOSEC] 40 mg PO HS 12/02/15 06/21/18 Vit C/E/Zn/Coppr/Lutein/Zeaxan 1 cap PO BID 12/02/15 06/21/18 [Preservision Areds 2 Softgel] Clopidogrel [Plavix] 75 mg PO DAILY 12/05/15 06/21/18 Aspirin [Adult Low Dose Aspirin EC] 81 mg PO DAILY 01/22/16 06/21/18 Multivitamins, Thera [Multivitamin 1 tab PO DAILY 01/22/16 06/21/18 (formulary)] Calcium Carb-Vit D 500Mg-5Mcg 1 tab PO BID 03/03/17 06/21/18 [Oscal 500+D 5 Mcg (200 Iu)] Furosemide [Lasix] 40 mg PO DAILY 03/03/17 06/21/18 traZODone HCL 150 mg PO HS 03/03/17 06/21/18 Isosorbide Mononitrate [Isosorbide 30 mg PO DAILY 05/12/18 06/21/18 Mononitrate ER] buPROPion XL [Wellbutrin XL] 150 mg PO DAILY 06/16/18 06/21/18 Nicotine 14Mg/24Hr Patch [Habitrol] 14 patch TRANSDERM DAILY 06/21/18 06/21/18 Previous Rx's Medication Instructions Recorded Albuterol Nebulized [Ventolin 2.5 mg INHALATION Q4H PRN 10 Days 11/27/17 Nebulized] nebu Allergies Allergy/AdvReac Type Severity Reaction Status Date / Time latex Allergy Rash/Hives Verified 05/10/21 19:34 Review of Systems ROS Statement: Those systems with pertinent positive or pertinent negative responses have been documented in the HPI. ROS Other: All systems not noted in ROS Statement are negative. 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, heart murmer, callus on left breast, chr onic back pain Last Myocardial Infarction Date:: 10/2011 History of Any Multi-Drug Resistant Organisms: None Reported Past Surgical History: Appendectomy, Back Surgery, Coronary Bypass/CABG, Heart Catheterization, Hysterectomy, Orthopedic Surgery Additional Past Surgical History / Comment(s): rt knee surgery, chris cataracts, heart cath (05/2013)-pt not sure if any stents, CABG 2011 Past Anesthesia/Blood Transfusion Reactions: No Reported Reaction Past Psychological History: No Psychological Hx Reported Smoking Status: Current every day smoker Past Alcohol Use History: Occasional Past Drug Use History: None Reported - Past Family History Brother(s) Family Medical History: Cancer General Exam Limitations: physical limitation General appearance: alert, in no apparent distress Head exam: Present: atraumatic, normocephalic Eye exam: Present: normal appearance, PERRL, EOMI ENT exam: Present: mucous membranes moist Neck exam: Present: other (Trachea is in midline). Absent: tenderness, meningismus Respiratory exam: Present: normal lung sounds bilaterally. Absent: respiratory distress, wheezes, rales, rhonchi, stridor Cardiovascular Exam: Present: normal rhythm, bradycardia, normal heart sounds, other (Normal radial pulses bilaterally) GI/Abdominal exam: Present: soft. Absent: distended, tenderness, guarding Extremities exam: Absent: tenderness, pedal edema Back exam: Absent: tenderness Neurological exam: Present: alert, oriented X3, CN II-XII intact, other (Patient has 1/5 strength in her right upper extremity while testing her strength, but when distracted, the patient appears to have full strength in her right upper extremity; patient has 4/5 strength in her right lower extremity, which she states is chronic; NIH stroke scale score = 3) Psychiatric exam: Present: normal affect, normal mood Skin exam: Present: warm, dry, intact, normal color Course Vital Signs 05/10/21 05/10/21 05/10/21 19:30 19:34 19:45 Temperature 98.1 F 97.6 F 98.1 F Pulse Rate 50 L 48 L 46 L Respiratory 16 16 16 Rate Blood Pressure 155/62 155/62 164/69 O2 Sat by Pulse 95 99 95 Oximetry 05/10/21 05/10/21 20:00 20:16 Temperature 98.0 F 97.4 F L Pulse Rate 43 L 46 L Respiratory 16 16 Rate Blood Pressure 138/68 140/97 O2 Sat by Pulse 95 96 Oximetry - Reevaluation(s) Reevaluation #1: 05/10/21 19:49 Case, H&P and pending ED workup were discussed with Dr. Love (neurointerventionalist). He states that he will follow-up on the patient's imaging findings. He has no further recommendations at this time. 05/10/21 20:06 Dr. Love states that he has reviewed the patient's imaging studies himself, and he states that they are negative. He recommends having a discussion with the patient about if she would be interested in TPA treatment, and he states that he would be happy to discuss further with her if she is interested. He has no further recommendations at this time. 05/10/21 20:12 Patient's right arm weakness has completely resolved at this time, and she has 5/5 strength in her right arm currently. Patient reports that her right leg weakness is chronic. Patient has no new neurological deficits at this time. Given this, I do not feel that the patient is a TPA candidate. Patient and daughters are aware of the patient's test results, and they all agree with hospital admission at this time. 05/10/21 20:41 Case, H&P, test results, ED management and my discussions with Dr. Love as above were discussed with Dr. Landry. He accepts hospital admission. He agrees with neurology consultation. He has no further recommendations at this time. EKG Findings - EKG Comments: EKG Findings:: Sinus versus junctional bradycardia, QRS duration of 126 ms, QTc interval of 522 ms, left bundle branch block, leftward axis, no significant change from 06/22/2018 EKG Medical Decision Making - Medical Decision Making Patient's new neurological deficits have completely resolved at this time. As s uch, I do not feel that the patient is a TPA candidate at this time. Patient's imaging studies are fairly unremarkable. Patient has been given a dose of oral aspirin in the ED. Dr. Landry has accepted hospital admission. - Lab Data Result diagrams: 05/10/21 19:36 05/10/21 19:36 Lab Results 05/10/21 05/10/21 05/10/21 Range/Units 19:36 19:36 19:36 WBC 8.0 (3.8-10.6) k/uL RBC 4.16 (3.80-5.40) m/uL Hgb 13.1 (11.4-16.0) gm/dL Hct 40.5 (34.0-46.0) % MCV 97.4 (80.0-100.0) fL MCH 31.4 (25.0-35.0) pg MCHC 32.3 (31.0-37.0) g/dL RDW 12.9 (11.5-15.5) % Plt Count 217 (150-450) k/uL MPV 7.7 Neutrophils % 65 % Lymphocytes % 22 % Monocytes % 7 % Eosinophils % 3 % Basophils % 1 % Neutrophils # 5.2 (1.3-7.7) k/uL Lymphocytes # 1.7 (1.0-4.8) k/uL Monocytes # 0.6 (0-1.0) k/uL Eosinophils # 0.2 (0-0.7) k/uL Basophils # 0.1 (0-0.2) k/uL PT 10.2 (9.0-12.0) sec INR 0.9 (<1.2) APTT 24.5 (22.0-30.0) sec Sodium 135 L (137-145) mmol/L Potassium 5.4 H (3.5-5.1) mmol/L Chloride 108 H (98-107) mmol/L Carbon Dioxide 23 (22-30) mmol/L Anion Gap 4 mmol/L BUN 29 H (7-17) mg/dL Creatinine 0.89 (0.52-1.04) mg/dL Est GFR (CKD-EPI)AfAm 72 (>60 ml/min/1.73 sqM) Est GFR (CKD-EPI)NonAf 63 (>60 ml/min/1.73 sqM) Glucose 99 (74-99) mg/dL Calcium 9.1 (8.4-10.2) mg/dL Total Bilirubin 0.8 (0.2-1.3) mg/dL AST 30 (14-36) U/L ALT 13 (4-34) U/L Alkaline Phosphatase 49 (38-126) U/L Troponin I (0.000-0.034) ng/mL Total Protein 5.9 L (6.3-8.2) g/dL Albumin 3.3 L (3.5-5.0) g/dL 05/10/21 Range/Units 19:36 WBC (3.8-10.6) k/uL RBC (3.80-5.40) m/uL Hgb (11.4-16.0) gm/dL Hct (34.0-46.0) % MCV (80.0-100.0) fL MCH (25.0-35.0) pg MCHC (31.0-37.0) g/dL RDW (11.5-15.5) % Plt Count (150-450) k/uL MPV Neutrophils % % Lymphocytes % % Monocytes % % Eosinophils % % Basophils % % Neutrophils # (1.3-7.7) k/uL Lymphocytes # (1.0-4.8) k/uL Monocytes # (0-1.0) k/uL Eosinophils # (0-0.7) k/uL Basophils # (0-0.2) k/uL PT (9.0-12.0) sec INR (<1.2) APTT (22.0-30.0) sec Sodium (137-145) mmol/L Potassium (3.5-5.1) mmol/L Chloride (98-107) mmol/L Carbon Dioxide (22-30) mmol/L Anion Gap mmol/L BUN (7-17) mg/dL Creatinine (0.52-1.04) mg/dL Est GFR (CKD-EPI)AfAm (>60 ml/min/1.73 sqM) Est GFR (CKD-EPI)NonAf (>60 ml/min/1.73 sqM) Glucose (74-99) mg/dL Calcium (8.4-10.2) mg/dL Total Bilirubin (0.2-1.3) mg/dL AST (14-36) U/L ALT (4-34) U/L Alkaline Phosphatase (38-126) U/L Troponin I 0.013 (0.000-0.034) ng/mL Total Protein (6.3-8.2) g/dL Albumin (3.5-5.0) g/dL - Radiology Data Noncontrast head CT: 1. No evidence of intracranial hemorrhage. 2. Age indeterminant anterior limb of the right internal capsule lacunar injury. CT angiography head/neck with IV contrast: 1. No evidence of dissection of the cervical internal carotid arteries or vertebral arteries and less than 50% stenosis at the carotid bifurcations. 2. No evidence of high-grade stenosis or intracranial aneurysm. 3. A 1.4 cm right thyroid nodule, consider dedicated thyroid ultrasound for further evaluation if clinically warranted. 4. Moderate COPD. Chest x-ray: No acute cardiopulmonary disease/process. Disposition Clinical Impression: Right sided weakness Disposition: ADMITTED IP TO THIS [facility] Condition: Stable Is patient prescribed a controlled substance at d/c from ED?: No Referrals: Glendy Barros DO [Primary Care Provider] - 1-2 days Time of Disposition: 20:45
[2021-05-10 19:58] LABS: Basophils # (A) 0.1 k/uL (0-0.2); Basophils % (A) 1 %; Eosinophils # (A) 0.2 k/uL (0-0.7); Eosinophils % (A) 3 %; HCT 40.5 % (34.0-46.0); HGB 13.1 gm/dL (11.4-16.0); Lymphocytes # (A) 1.7 k/uL (1.0-4.8); Lymphocytes % (A) 22 %; MCH 31.4 pg (25.0-35.0); MCHC 32.3 g/dL (31.0-37.0); MCV 97.4 fL (80.0-100.0); Mean Platelet Volume 7.7; Monocytes # (A) 0.6 k/uL (0-1.0); Monocytes % (A) 7 %; Neutrophils # (A) 5.2 k/uL (1.3-7.7); Neutrophils % (A) 65 %; Platelet Count 217 k/uL (150-450); RBC 4.16 m/uL (3.80-5.40); RDW 12.9 % (11.5-15.5)
--- NOTE | 2021-05-10 20:13 | CT ---
EXAMINATION TYPE: CT brain wo con for TPA CT DLP: 1097.8 mGycm, Automated exposure control for dose reduction was used. DATE OF EXAM: 05/10/2021 8:01 PM COMPARISON: None.. Prior CT Brain from . CLINICAL INDICATION:Female, 76 years old with history of Neuro deficit, acute, stroke suspected; , benjamin patel TECHNIQUE: Brain: Multiple axial CT images of the brain were obtained without IV contrast. FINDINGS: Brain: Extra-axial spaces: No abnormal extra-axial fluid collections. Ventricular system: Within normal limits Cerebral parenchyma: Low Density within the anterior limb of the right internal capsule. No acute int raparenchymal hemorrhage or mass effect. The vanessa-white junction is well differentiated. Cerebellum: Unremarkable. Mass effect: No evidence of midline shift. Intracranial vasculature: Atherosclerotic calcifications of the intracranial vessels. Soft tissues: Normal. Calvarium/osseous structures: No depressed skull fracture. Paranasal sinuses and mastoid air cells: Clear. Visualized orbits: Bilateral aphakia IMPRESSION: 1. No evidence of intracranial hemorrhage. 2. Age Indeterminate anterior limb of the right internal capsule lacunar injury.
[2021-05-10 20:14] LABS: Albumin 3.3 g/dL (3.5-5.0); Calcium 9.1 mg/dL (8.4-10.2); INR 0.9 (<1.2); Partial Thromboplastin Time 24.5 sec (22.0-30.0); Prothrombin Time 10.2 sec (9.0-12.0); Total Bilirubin 0.8 mg/dL (0.2-1.3); Total Protein 5.9 g/dL (6.3-8.2)
[2021-05-10] MEDS ORDERED: ASPIRIN 81 MG PO STA (20:14)
--- NOTE | 2021-05-10 20:30 | CT ---
EXAMINATION TYPE: CT angio head neck CT DLP: 374.6 mGycm, Automated exposure control for dose reduction was used. DATE OF EXAM: 05/10/2021 8:13 PM COMPARISON: CT brain same day. CLINICAL INDICATION:Female, 76 years old with history of Neuro deficit, acute, stroke suspected;, cony barcenas TECHNIQUE: Axially acquired helical CT angiogram of the head and neck was obtained with contrast util izing 75 cc of Isovue-370 administered intravenously. Axial images are supplemented with 3D reconstru ctions which were post-processed at an independent workstation. FINDINGS: CTA HEAD: No evidence of acute intracranial hemorrhage, mass effect, or midline shift. The ventricles, sulci, a nd cisterns are unremarkable. The visualized portions of the internal carotid arteries, middle cerebral arteries, anterior cerebral arteries, and posterior cerebral arteries are patent. The basilar and vertebral arteries are patent. CTA NECK: Right Carotid System: The common carotid artery and external carotid artery are patent. Mild calcifications are present in the carotid sinus. Less than 50% stenosis at the carotid bifurcation. The remaining portions of the i nternal carotid artery demonstrate normal size without significant narrowing. Left Carotid System: The common carotid artery and external carotid artery are patent. Mild calcifications are present in the carotid sinus. Less than 50% stenosis at the carotid bifurcation. The remaining portions of the i nternal carotid artery demonstrate normal size without significant narrowing. The origins of the great vessels and vertebral arteries are patent. Scattered atherosclerotic disease at the great vessel origins.. The vertebral arteries are patent. Origins of the vertebral arteries do demonstrate mild atherosclerotic disease. A 1.4 cm thyroid nodule. There is moderate centrilobular emphysematous changes within the lung apices. There is apical scarrin g noted most pronounced on the right. IMPRESSION: 1. No evidence of dissection of the cervical internal carotid arteries or vertebral arteries and less than 50% stenosis at the carotid bifurcations. 2. No evidence of high-grade stenosis or intracranial aneurysm. 3. A 1.4 cm right thyroid nodule, consider dedicated thyroid ultrasound for further evaluation if cli nically warranted. 4. Moderate COPD.
[2021-05-10 20:35] LABS: Potassium 5.4 mmol/L (3.5-5.1)
--- NOTE | 2021-05-10 20:38 | XR ---
EXAMINATION TYPE: XR chest 1V portable DATE OF EXAM: 05/10/2021 8:19 PM COMPARISON: Radiograph 11/27/2017 CLINICAL INDICATION:Female, 76 years old with history of altered mental status; TECHNIQUE: Frontal view of the chest. FINDINGS: Lungs/Pleura: There is no evidence of pleural effusion, focal consolidation, or pneumothorax. Pulmonary vascularity: Unremarkable. Heart/mediastinum: Cardiomediastinal silhouette is unremarkable. Musculoskeletal: No acute osseous pathology. Other findings: Midline sternotomy wires are noted and stable. IMPRESSION: No acute cardiopulmonary disease/process.
[2021-05-10] MEDS ORDERED: SODIUM CHLORIDE 0.9% 1,000 ML IV ONE (20:41)
[2021-05-10] MEDS: oxyCODONE-APAP 10-325MG 1 EACH TAB PO PRN (23:51)
[2021-05-11] MEDS: traZODone HCL 100 MG TAB PO PRN ×2 (00:20→22:41)
[2021-05-11 07:48] LABS: African American GFR (CKD) 79 (>60 ml/min/1.73 sqM); Anion Gap 4 mmol/L; Blood Urea Nitrogen 21 mg/dL (7-17); Calcium 8.6 mg/dL (8.4-10.2); Carbon Dioxide 21 mmol/L (22-30); Chloride 112 mmol/L (98-107); Glucose 74 mg/dL (74-99); Non-African American GFR(CKD) 69 (>60 ml/min/1.73 sqM); Sodium 137 mmol/L (137-145)
[2021-05-11 08:08] LABS: Magnesium 2.2 mg/dL (1.6-2.3); Potassium 4.8 mmol/L (3.5-5.1)
[2021-05-11] MEDS ORDERED: METOPROLOL TARTRATE 25 MG TAB PO SCH (09:00)
[2021-05-11] MEDS ORDERED: FUROSEMIDE 40 MG TAB PO SCH (09:00)
[2021-05-11] MEDS ORDERED: FAMOTIDINE 20 MG/2 ML VIAL IV SCH (09:00)
[2021-05-11] MEDS: OXcarbazepine 300 MG TAB PO SCH (09:01)
[2021-05-11] MEDS: ISOSORBIDE MONONITRATE ER 30 MG TAB.ER.24H PO SCH (09:01)
[2021-05-11] MEDS: ASPIRIN 81 MG PO SCH (09:01)
[2021-05-11] MEDS: HEPARIN SODIUM,PORCINE/PF 5,000 UNIT/0.5 ML SYRINGE SQ SCH ×2 (09:01→19:50)
[2021-05-11] MEDS: CLOPIDOGREL 75 MG TAB PO SCH (09:01)
[2021-05-11] MEDS: amLODIPine 5 MG TAB PO SCH (09:01)
[2021-05-11] MEDS: CALCIUM CARB-VIT D 500 MG-5 MCG TAB PO SCH (09:03)
[2021-05-11] MEDS: oxyCODONE-APAP 10-325MG 1 EACH TAB PO PRN ×2 (09:07→19:48)
--- NOTE | 2021-05-11 13:09 | P.CNNES ---
History of Present Illness Consult date: 05/11/21 Reason for Consult: right-sided weakness History of Present Illness: The patient is a 76-year-old right-handed female who is seen in ne urologic consultation on May 11, 2021, via telemedicine. Patient reports that she was seated at home in her chair. She said she attempted to get up to walk to the bathroom and noticed that her right leg felt "prickly" as if it had fallen asleep. She was able to walk to the bathroom, with the assistance of her daughter. She says that she was able to sit on the toilet. Then, she fell off the toilet and was unable to get up from the floor. She says that her daughter called the the patient's son-in-law who came over and helped the patient to get up from the floor. The patient was able to walk, with assistance back to her chair. She then noted that approximately 10 minutes later, she began to experience numbness in her right arm. He says the numbness involved the her upper arm. She says she was able to move her hand and wrist. The patient is a somewhat poor historian. She initially denies weakness in her legs. However, when questioned again she reports that she uses a walker for balance. She says that she has "chronic" weakness in both of her legs. The right leg is weaker than the left. This has been present since 2019, following surgery. The patient does report having had a stroke in 2018. She says that this stroke only affected her face, causing drooping of her right lower mouth. In regards to her balance, ability and falling off the toilet yesterday, the patient denies falls. She denies headache, difficulty with speech and difficulty swallowing. She reports the numbness of her right arm has resolved. It apparently was present for several hours. In the emergency department, a CT scan of the brain and CT angiogram were performed. Because of resolution of her symptoms, the patient did not receive IV TPA. CT scan of the brain revealed an age indeterminant right internal capsule lacunar infarct. CT angiogram revealed less than 50% stenosis of the b ilateral internal carotid arteries. 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, heart murmer, callus on left breast, chronic back pain Last Myocardial Infarction Date:: 10/2011 History of Any Multi-Drug Resistant Organisms: None Reported Past Surgical History: Appendectomy, Back Surgery, Coronary Bypass/CABG, Heart Catheterization, Hysterectomy, Orthopedic Surgery Additional Past Surgical History / Comment(s): rt knee surgery, chris cataracts, heart cath (05/2013)-pt not sure if any stents, CABG 2011 Past Anesthesia/Blood Transfusion Reactions: No Reported Reaction Past Psychological History: No Psychological Hx Reported Smoking Status: Current every day smoker Past Alcohol Use History: Occasional Additional Past Alcohol Use History / Comment(s): quit smoking 2014, smoked for > 50 yrs, 2 PPD Past Drug Use History: None Reported - Past Family History Brother(s) Family Medical History: Cancer Medications and Allergies Home Medications Medication Instructions Recorded Confirmed Type Atorvastatin Calcium [Lipitor] 80 mg PO HS 12/02/15 05/10/21 History Metoprolol Tartrate [Lopressor] 25 mg PO DAILY 12/02/15 05/10/21 History Omeprazole [PriLOSEC] 40 mg PO HS 12/02/15 05/10/21 History Vit C/E/Zn/Coppr/Lutein/Zeaxan 1 cap PO HS 12/02/15 05/10/21 History [Preservision Areds 2 Softgel] Clopidogrel [Plavix] 75 mg PO DAILY 12/05/15 05/10/21 History Aspirin [Adult Low Dose Aspirin EC] 81 mg PO DAILY 01/22/16 05/10/21 History Multivitamins, Thera [Multivitamin 1 tab PO DAILY 01/22/16 05/10/21 History (formulary)] Calcium Carb-Vit D 500Mg-5Mcg 4 tab PO DAILY 03/03/17 05/10/21 History [Oscal 500+D 5 Mcg (200 Iu)] Furosemide [Lasix] 40 mg PO DAILY 03/03/17 05/10/21 History traZODone HCL 300 mg PO HS 03/03/17 05/10/21 History Isosorbide Mononitrate [Isosorbide 30 mg PO DAILY 05/12/18 05/10/21 History Mononitrate ER] Baclofen [Lioresal] 10 mg PO HS 05/10/21 05/10/21 History Ciprofloxacin HCl 500 mg PO BID 05/10/21 05/10/21 History Fluticasone/Umeclidin/Vilanter 1 puff INHALATION RT-DAILY 05/10/21 05/10/21 History [Trelegy Ellipta 100-62.5-25] OXcarbazepine [Trileptal] 300 mg PO DAILY 05/10/21 05/10/21 History oxyCODONE-APAP 10-325MG [Percocet 1 tab PO QID PRN 05/10/21 05/10/21 History 10-325 mg] Allergies Allergy/AdvReac Type Severity Reaction Status Date / Time latex Allergy Rash/Hives Verified 05/10/21 21:15 Physical Examination - Vital Signs Vital Signs: Vital Signs Temp Pulse Pulse Pulse Resp BP BP 05/11/21 08:32 97.4 F L 50 L 17 170/76 05/11/21 02:00 97.5 F L 46 L 18 05/11/21 01:50 39 L 05/10/21 21:10 97.5 F L 45 L 18 196/72 05/10/21 20:57 97.2 F L 42 L 16 136/54 05/10/21 20:16 97.4 F L 46 L 16 140/97 05/10/21 20:00 98.0 F 43 L 16 138/68 05/10/21 19:45 98.1 F 46 L 16 164/69 05/10/21 19:34 97.6 F 48 L 16 155/62 05/10/21 19:30 98.1 F 50 L 16 155/62 Pulse Ox 05/11/21 08:32 94 L 05/11/21 02:00 95 05/11/21 01:50 05/10/21 21:10 98 05/10/21 20:57 96 05/10/21 20:16 96 05/10/21 20:00 95 05/10/21 19:45 95 05/10/21 19:34 99 05/10/21 19:30 95 Intake and Output 05/10/21 05/11/21 05/11/21 22:59 06:59 14:59 Other: Voiding Method Diaper Incontinent # Voids 2 Weight 57.606 kg Gen.: The patient is reclining in the bed. She is well-nourished, well-devel oped and in no acute distress. HEENT: Head is atraumatic, normocephalic. Fundus not visualized. There is no scleral icterus. Mucous membranes are moist. Neck: Supple without carotid bruits Heart: Regular rate and rhythm Extremities: Without edema Neurological examination Mental status: The patient is awake, alert and oriented 3. Her speech is clear. She is slow to answer questions. She has some difficulty following commands. There is noticed to be right/left confusion. Cranial nerves: Pupils are equal at 2 mm and reactive. Visual quintana are full to confrontation. Extraocular movements are intact. There is no nystagmus. Facial sensation is intact. Is no facial asymmetry. Hearing is diminished. Uvula and palate are midline. Shoulder shrug is symmetric. Tongue protrudes midline. Motor: Right deltoid strength 3/5. Right ankle plantar and dorsiflexors 3-/5. Airline Lounge Receptionist strength is equal bilaterally. Left upper and lower extremity strength is 4-5/5. Sensation: Grossly intact to light touch throughout. Coordination: Finger to nose testing is intact. Rapid alternating movements are intact. Deep tendon reflexes: 2+/4+ in the right upper extremity. 2-3+/4+ at the right knee. Left upper extremity reflexes 1-2+/4+. Left patellar reflex 2+/4+. Gait: Not assessed Results - Laboratory Findings CBC and BMP: 05/10/21 19:36 05/11/21 06:54 Abnormal Lab Findings: Abnormal Labs 05/10/21 05/11/21 19:36 06:54 Sodium 135 L Potassium 5.4 H Chloride 108 H 112 H Carbon Dioxide 21 L BUN 29 H 21 H Total Protein 5.9 L Albumin 3.3 L Assessment and Plan Assessment: 1. Possible left cerebral infarct, the patient had an episode of transient right upper extremity numbness. On examination, she continues to have some slowness of movement and responsiveness. Consider mild expressive/receptive aphasia 2. History of stroke 3. History of hypertension 4. History of hyperlipidemia Plan: 1. MRI of brain has been ordered 2. Stroke order set has been placed-including PT, OT and speech therapy evaluations 3. 2-D echocardiogram 4. Continue aspirin and Plavix at this time, if MRI is positive for stroke, we'll consider changing Plavix to Brilinta 5. High-dose statin 6. Heart healthy diet and exercise are recommended Thank you for allowing me to participate in the care of this patient. Dr. Harrell will assume neurologic coverage of this patient as of May 12, 2021 Time with Patient: Greater than 30 (spent 40 minutes with patient via telemedicine)
--- NOTE | 2021-05-11 15:13 | HP ---
HISTORY AND PHYSICAL I am covering for Dr. Crowe. DATE OF SERVICE: 05/11/2021 CHIEF COMPLAINTS: Weakness, numbness of the right side of the body. HISTORY OF PRESENT ILLNESS: This 76-year-old woman with a past medical history of multiple medical problems including CVA, TIA, GERD, hypertension, hyperlipidemia, DJD being followed by Dr. Crowe in the outpatient setting, noted to have weakness of the right side. The patient came to [facility]. The patient had extensive workup. Neurology evaluation is also in progress. The patient is keen on going home, but however, the patient still has some weakness of the right side, right upper and lower limbs. Left cerebral infarct is being considered. No chest pain. No palpitations. No fever. PAST MEDICAL HISTORY: History of CVA, TIA, GERD, hypertension, hyperlipidemia, myocardial infarction. HOME MEDICATIONS: Reviewed and include: Calcium with vitamin D, oxycodone, fluticasone, Ellipta, trazodone. Doses and other medications reviewed. ALLERGIES: LATEX. FAMILY HISTORY: History of cancer in the family. SOCIAL HISTORY: History of smoking, continued ongoing. REVIEW OF SYSTEMS: ENT: Diminished vision. Diminished hearing. CARDIOVASCULAR: No angina. RESPIRATION: As mentioned earlier. GI: As mentioned earlier. : No dysuria. NERVOUS SYSTEM: As mentioned earlier. ALLERGY/IMMUNOLOGY: No asthma or hayfever. MUSCULOSKELETAL: As mentioned earlier. HEMATOLOGY/ONCOLOGY: No history of anemia. ENDOCRINE: No history of diabetes or hypothyroidism. CONSTITUTIONAL: As mentioned earlier. DERMATOLOGY: Negative. RHEUMATOLOGY: Negative. PSYCHIATRIC: As mentioned earlier. PHYSICAL EXAMINATION: alert and oriented times three. Pulse 50, blood pressure 170/76, respirations 17, temperature 97.4, pulse ox 94% on room air. HEENT: Conjunctivae normal. NECK: No JVD. CARDIOVASCULAR: S1, S2 muffled. RESPIRATORY: Breath sounds diminished in the bases. A few rhonchi, no crackles. ABDOMEN: Soft, nontender. LEGS: No edema. No swelling. NERVOUS SYSTEM: Weakness of the right side is present. SKIN: No ulcer, rashes or bleeding. JOINTS: No active deforming arthropathy. LABS: CBC within normal limits. Sodium 130. Potassium ASSESSMENT: 1. Weakness of the right side of the body, possible left hemispheric stroke. 2. Hyponatremia. 3. Mild hyperkalemia. 4. History of transient ischemic attack. 5. Cerebrovascular accident. 6. History of gastroesophageal reflux disease. 7. Hypertension. 8. Hyperlipidemia. 9. History of myocardial infarction. 10.Mild expressive aphasia, possibly. 11.History of deep vein thrombosis. 12.Migraine. 13.Appendectomy. 14.History of coronary artery disease/coronary artery bypass grafting. 15.History of continued ongoing nicotine dependence. 16.FULL CODE. RECOMMENDATIONS AND DISCUSSION: This 76-year-old woman who presented with multiple complex medical issues, we will monitor the patient closely. Continue the current medications, continue antiplatelet agents. Continue the Lipitor. Resume the home medications. Follow closely with neurology. Dr. Crowe will follow tomorrow. Prognosis guarded. PT/OT evaluation. MMJOSEL / EBONYN: [id number] / [place]
[2021-05-11] MEDS: FAMOTIDINE 20 MG TAB PO SCH (19:47)
[2021-05-11] MEDS: ATORVASTATIN 80 MG TAB PO SCH ×2 (19:47)
[2021-05-11] MEDS: IPRATROPIUM 0.5 MG/2.5 ML NEBU INHALATION SCH (20:11)
[2021-05-11] MEDS: SYMBICORT 80-4.5 MCG INHALER INHALATION SCH (20:12)
[2021-05-11] MEDS ORDERED: BACLOFEN 10 MG TAB PO SCH (21:00)
[2021-05-11] MEDS ORDERED: PANTOPRAZOLE 40 MG TABLET PO SCH (21:00)
[2021-05-12] MEDS: oxyCODONE-APAP 10-325MG 1 EACH TAB PO PRN ×2 (00:46→08:38)
[2021-05-12] MEDS: HEPARIN SODIUM,PORCINE/PF 5,000 UNIT/0.5 ML SYRINGE SQ SCH (08:26)
[2021-05-12] MEDS: CLOPIDOGREL 75 MG TAB PO SCH (08:27)
[2021-05-12] MEDS: amLODIPine 5 MG TAB PO SCH (08:27)
[2021-05-12] MEDS: FAMOTIDINE 20 MG TAB PO SCH (08:27)
[2021-05-12] MEDS: CALCIUM CARB-VIT D 500 MG-5 MCG TAB PO SCH (08:27)
[2021-05-12] MEDS: ISOSORBIDE MONONITRATE ER 30 MG TAB.ER.24H PO SCH (08:28)
[2021-05-12] MEDS: ASPIRIN 81 MG PO SCH (08:28)
[2021-05-12] MEDS: OXcarbazepine 300 MG TAB PO SCH (08:28)
[2021-05-12] MEDS: IPRATROPIUM 0.5 MG/2.5 ML NEBU INHALATION SCH ×2 (08:46→12:09)
[2021-05-12] MEDS: SYMBICORT 80-4.5 MCG INHALER INHALATION SCH (08:46)
[2021-05-12 08:51] VITALS: BP 143/56; PULSE 56; RESP 16; TEMP 97.5
[2021-05-12] MEDS ORDERED: FUROSEMIDE 40 MG TAB PO SCH (09:00)
[2021-05-12] MEDS ORDERED: MULTIVITAMINS, THERA 1 EACH TAB PO SCH (09:00)
--- NOTE | 2021-05-12 10:55 | MR ---
MR brain without contrast HISTORY: Cerebrovascular accident Multiplanar multisequence imaging obtained through the brain and correlated to CT brain 05/10/2021, MR brain 12/06/2015 Periventricular deep white matter confluent and scattered hyperintensities are present on inversion r ecovery and T2-weighted sequences. There is no restricted diffusion. Mucosal disease is present withi n the ethmoid air cells, mild inflammatory change in the mastoids on the left. Orbits show symmetric appearance. Cerebellopontine angles are normal. There are expected vascular flow voids. Corpus callos um, pituitary, cervical medullary junction are within normal limits. There is age-related atrophy. IMPRESSION: Stable exam, nonspecific white matter demyelination, age related atrophy.
[2021-05-12 11:13] LABS: African American GFR (CKD) 82.4 (60.0-200.0); BUN/Creat Ratio 19.63 Ratio (12.00-20.00); Blood Urea Nitrogen 15.7 mg/dL (9.0-27.0); Calcium 8.3 mg/dL (8.7-10.3); Carbon Dioxide 20.8 mmol/L (20.0-27.5); Chloride 106 mmol/L (96-109); Chol/HDL Ratio 3.52 Ratio; Glucose 75 mg/dL (70-110); LDL Cholesterol,Calculated 85.3 mg/dL (0.0-131.0); Non-African American GFR(CKD) 71.1 (60.0-200.0); Sodium 137 mmol/L (135-145)
[2021-05-12] MEDS ORDERED: ACETAMINOPHEN TAB 500 MG TAB PO PRN (11:32)
[2021-05-12 11:52] LABS: Basophils % (A) 1.3 %; Eosinophils # (A) 0.15 X 10*3/uL (0.04-0.35); Eosinophils % (A) 1.9 %; HCT 35.9 % (37.2-46.3); HGB 11.5 g/dL (12.0-15.0); Lymphocytes # (A) 1.77 X 10*3/uL (0.90-5.00); Lymphocytes % (A) 22.8 %; MCH 30.8 pg (27.0-32.0); MCV 96.2 fL (80.0-97.0); Mean Platelet Volume 10.4 fL (9.5-12.2); Monocytes # (A) 0.66 X 10*3/uL (0.20-1.00); Monocytes % (A) 8.5 %; Neutrophils # (A) 5.05 X 10*3/uL (1.80-7.70); Neutrophils % (A) 65.2 %; Platelet Count 185 X 10*3/uL (140-440); RBC 3.73 X 10*6/uL (4.10-5.20); RDW 13.1 % (11.5-14.5); WBC 7.75 X 10*3/uL (4.50-10.00)
[2021-05-12] MEDS ORDERED: METOPROLOL TARTRATE 12.5 MG TAB PO SCH (12:00)
--- NOTE | 2021-05-12 12:36 | P.PN ---
Subjective Progress Note Date: 05/12/21 I am seeing the patient for the first time for neurological management and she denies any further numbness over the right side. Shee denies of any new neurological complaints. Please refer to Dr. Jean note for further details. Objective - Vital Signs Vital signs: Vital Signs Temp 97.5 F L 05/12/21 07:00 Pulse 56 L 05/12/21 08:00 Resp 16 05/12/21 08:00 BP 143/56 05/12/21 07:00 Pulse Ox 95 05/12/21 07:00 Intake & Output 05/11/21 05/12/21 05/12/21 18:59 06:59 18:59 Intake Total 100 Balance 100 Intake: Oral 100 Other: Voiding Method Diaper Diaper Toilet Incontinent Incontinent Diaper Incontinent # Voids 2 1 2 - Exam GENERAL: The patient is lying in bed and is not in acute distress. NEUROLOGICAL: Higher mental function: The patient is awake, alert, oriented to self, place and time. Patient is following commands. No aphasia and no neglect. Cranial nerves: The pupils are round, equal and reactive to light and accommodation. Visual quintana are full to confrontation throughout. Extraocular movement is intact no nystagmus is noted. Facial sensation is normal to touch throughout. The facial strength is normal throughout. Tongue is midline and moved [id number] without any difficulty. No dysarthria is noted. Shoulder shrug is normal bilaterally. Motor: The strength is 5 over 5 throughout. Normal tone and bulk. Cerebellum: Normal finger to nose heel to chin bilaterally. Sensation: Sensation is normal to touch throughout.. SOME OF THE WORK-UP: TSH is 1.9. Lipid panel is a triglyceride of 82, cholesterol is 142, HDL is 40. MRI of the brain without contrast is reported as stable exam, nonspecific white matter demyelination, age-related atrophy. I personally reviewed the MRI and there is no acute or subacute ischemia. CT angiography of the head and neck was reported as no evidence of dissection of the cervical internal carotid arteries or vertebral arteries and less than 50% stenosis of the carotid bifurcation. No evidence of high-grade stenosis or intracranial aneurysm. - Labs CBC & Chem 7: 05/12/21 06:52 05/12/21 06:52 Labs: Abnormal Lab Results - Last 24 Hours (Table) 05/12/21 05/12/21 Range/Units 06:52 06:52 RBC 3.73 L (4.10-5.20) X 10*6/uL Hgb 11.5 L (12.0-15.0) g/dL Hct 35.9 L (37.2-46.3) % Calcium 8.3 L (8.7-10.3) mg/dL Assessment and Plan Assessment: Probable TIA (Reported transient right upper extremity numbness and slowness in responsiveness (possiblye expressive/receptive aphasia). MRI Brain is negative for acute or subacute stroke. History of stroke History of Hypertension History of hyperlipidemia Plan: Pending 2-D echo report Patient is on home dose aspirin 81 mg and Plavix 75 mg daily. She stated that the she's been on this medication since she had a history of stroke. I notified the patient the if she has any further neurological symptoms to commence up and Plavix and start the patient on Brilinta. In my opinion the patient does not need to be on dual antiplatelets and she'll follow up with a neurologist as outpatient and her midwife practitioner (Dr. Cespedes) for further determination. Patient is on Lipitor 80 mg daily and she stated that was started by her midwife practitioner. Ordered Holter monitor for 30 days and if negative consider loop recorder the patient to follow-up with her midwife practitioner regarding that. We'll defer the rest of medical management to primary team Upon discharge the patient needs to follow-up with a neurologist within 1-2 weeks as an outpatient. The plan is discussed with patient and her nurse. Otherwise no further neurological work-up. Juwan Harrell M.D. Neuro-Hospitalist Time with Patient: Less than 30
[2021-05-12] MEDS ORDERED: oxyCODONE-APAP 10-325MG 1 EACH TAB PO SCH (13:00)
--- NOTE | 2021-05-12 13:00 | ECHOF ---
Referral Reason:CVA MEASUREMENTS -------- HEIGHT: 162.6 cm WEIGHT: 57.6 kg BP: RVIDd: 2.6 cm (< 3.3) IVSd: 1.4 cm (0.6 - 1.1) LVIDd: 2.8 cm (3.9 - 5.3) LVPWd: 1.2 cm (0.6 - 1.1) IVSs: 1.6 cm LVIDs: 2.6 cm LVPWs: 1.4 cm LA Diam: 3.2 cm (2.7 - 3.8) MV EXCURSION: 14.924 mm (> 18.000) MV EF SLOPE: 16 mm/s (70 - 150) EPSS: 0.2 cm MV E Bunny: 0.51 m/s MV DecT: 301 ms MV A Bunny: 0.72 m/s MV E/A Ratio: 0.70 AV maxP.10 mmHg AV meanP.66 mmHg AR PHT: 476 ms FINDINGS -------- Sinus rhythm. This was a technically good study. The left ventricular size is normal. There is mild concentric left ventricular hypertrophy. Overa ll left ventricular systolic function is low-normal with, an EF between 50 - 55 %. The right ventricle is normal in size. The left atrial size is normal. The right atrial size is normal. The aortic valve was not well visualized. There is moderate aortic regurgitation. There is modera te aortic stenosis present. Peak/mean gradient across the Aortic Valve is 32.10mmHg / 20.66mmHg. Mild mitral regurgitation is present. Mild tricuspid regurgitation present. Right ventricular systolic pressure is normal at < 35 mmHg. There is no pulmonic regurgitation present. CONCLUSIONS -------- 1. The left ventricular size is normal. 2. Overall left ventricular systolic function is low-normal with, an EF between 50 - 55 %. 3. The right ventricle is normal in size. 4. The left atrial size is normal. 5. The right atrial size is normal. 6. The aortic valve was not well visualized. 7. There is moderate aortic regurgitation. 8. There is moderate aortic stenosis present. 9. Peak/mean gradient across the Aortic Valve is 32.10mmHg / 20.66mmHg. 10. Mild mitral regurgitation is present. 11. Mild tricuspid regurgitation present. BLAST FURNACE CHECKER: Katerina Ott RDCS
--- NOTE | 2021-05-12 16:18 | P.DS ---
Providers Date of admission: 05/12/21 09:35 Expected date of discharge: 05/12/21 Attending physician: Maxx Crowe MD Consults: 05/10/21 20:14 Consult Physician Urgent Consulting Provider: Tonia Jean Consult Reason/Comments: right-sided weakness Do you want consulting provider notified?: Yes Primary care physician: Glendy Barros Hospital Course: Final Diagnoses: Probable TIA (Reported transient right upper extremity numbness and slowness in responsiveness (possiblye expressive/receptive aphasia). MRI Brain is negative for acute or subacute stroke. Right thyroid nodule, 1.4 cm, TSH 1.9 ,consider ultrasound outpatient Moderate aortic stenosis Moderate aortic regurgitation History of CVA Gastroesophageal reflux disease CAD, history of CO, CABG Ongoing nicotine dependence Hypertension Hyperlipidemia Hospital course: This is a 76-year-old female admitted with complaints of right- sided weakness. Evaluated by neurology with workup completed-please refer to EHR. Echo reported normal LV function with EF 50-55%, moderate aortic regurgitation, moderate aortic stenosis. CTA reported no evidence of dissection of the cervical internal carotid arteries or vertebral arteries and less than 50% stenosis at the carotid bifurcations, no high-grade stenosis or intracranial aneurysm, 1.4 cm right thyroid nodule, Brain MRI reported stable, nonspecific white matter demyelinization, age-related atrophy. Significant clinical improvement. Patient will be discharged today in stable condition with guarded prognosis pending PT evaluation, final DC recommendations per neurology. The impression and plan of care has been dictated as directed. : I performed a history and examination of this patient, discussed the same with the dictator. I agree with the dictator's note ,documented as a scribe. Any additional findings or plans will be noted. Patient Condition at Discharge: Stable Plan - Discharge Summary Discharge Rx Participant: No New Discharge Prescriptions: New Metoprolol Tartrate [Lopressor] 12.5 mg PO DAILY #30 tab Acetaminophen Tab [Tylenol] 500 mg PO Q4HR PRN tab PRN Reason: Fever And/ Or Pain amLODIPine [Norvasc] 5 mg PO DAILY #30 tab Continue Vit C/E/Zn/Coppr/Lutein/Zeaxan [Preservision Areds 2 Softgel] 1 cap PO HS Omeprazole [PriLOSEC] 40 mg PO HS Atorvastatin Calcium [Lipitor] 80 mg PO HS Clopidogrel [Plavix] 75 mg PO DAILY Multivitamins, Thera [Multivitamin (formulary)] 1 tab PO DAILY Aspirin [Adult Low Dose Aspirin EC] 81 mg PO DAILY traZODone HCL 300 mg PO HS Furosemide [Lasix] 40 mg PO DAILY Calcium Carb-Vit D 500Mg-5Mcg [Oscal 500+D 5 Mcg (200 Iu)] 4 tab PO DAILY Isosorbide Mononitrate [Isosorbide Mononitrate ER] 30 mg PO DAILY oxyCODONE-APAP 10-325MG [Percocet 10-325 mg] 1 tab PO QID PRN PRN Reason: Pain OXcarbazepine [Trileptal] 300 mg PO DAILY Baclofen [Lioresal] 10 mg PO HS Fluticasone/Umeclidin/Vilanter [Trelegy Ellipta 100-62.5-25] 1 puff INHALATION RT-DAILY Discontinued Metoprolol Tartrate [Lopressor] 25 mg PO DAILY Ciprofloxacin HCl 500 mg PO BID Discharge Medication List Atorvastatin Calcium [Lipitor] 80 mg PO HS 12/02/15 [History] Omeprazole [PriLOSEC] 40 mg PO HS 12/02/15 [History] Vit C/E/Zn/Coppr/Lutein/Zeaxan [Preservision Areds 2 Softgel] 1 cap PO HS 12/02/15 [History] Clopidogrel [Plavix] 75 mg PO DAILY 12/05/15 [History] Aspirin [Adult Low Dose Aspirin EC] 81 mg PO DAILY 01/22/16 [History] Multivitamins, Thera [Multivitamin (formulary)] 1 tab PO DAILY 01/22/16 [History] Calcium Carb-Vit D 500Mg-5Mcg [Oscal 500+D 5 Mcg (200 Iu)] 4 tab PO DAILY 03/03/17 [History] Furosemide [Lasix] 40 mg PO DAILY 03/03/17 [History] traZODone HCL 300 mg PO HS 03/03/17 [History] Isosorbide Mononitrate [Isosorbide Mononitrate ER] 30 mg PO DAILY 05/12/18 [History] Baclofen [Lioresal] 10 mg PO HS 05/10/21 [History] Fluticasone/Umeclidin/Vilanter [Trelegy Ellipta 100-62.5-25] 1 puff INHALATION RT-DAILY 05/10/21 [History] OXcarbazepine [Trileptal] 300 mg PO DAILY 05/10/21 [History] oxyCODONE-APAP 10-325MG [Percocet 10-325 mg] 1 tab PO QID PRN 05/10/21 [History] Acetaminophen Tab [Tylenol] 500 mg PO Q4HR PRN tab 05/12/21 [Rx] Metoprolol Tartrate [Lopressor] 12.5 mg PO DAILY #30 tab 05/12/21 [Rx] amLODIPine [Norvasc] 5 mg PO DAILY #30 tab 05/12/21 [Rx] Follow up Appointment(s)/Referral(s): Maxx Crowe MD [STAFF PHYSICIAN] - 05/14/21 3:30 pm (at [facility]. ) Chuy Cespedes MD [STAFF PHYSICIAN] - 06/17/21 3:30 pm (event monitor follow up at [facility]. ) Suzie Tripathi MD [Medical Doctor] - 2 Weeks (office will call with appointment date and time. ) [facility] Visiting Nurse, [NON-STAFF] - 1-2 Days Ambulatory/Diagnostic Orders: Complete Blood Count w/diff [LAB.AMB] Time Frame: 3 Days, Location: None Selected Discharge Disposition: HOME SELF-CARE
== END 2021-05-12 15:50 | disposition home or self-care (01) | DRG 69 ==
LOC: EC 19:30 → 6NMEDSUR 20:46 → OBSVTOIN 05-12 09:35
PROVIDERS: ADMIT Family Medicine; ATTEND Family Medicine
DX: G45.9 Transient cerebral ischemic attack, unspecified (principal); E87.1 Hypo-osmolality and hyponatremia; R47.01 Aphasia; I25.10 Atherosclerotic heart disease of native coronary artery without angina pectoris; E04.1 Nontoxic single thyroid nodule; Z20.822 Contact with and (suspected) exposure to COVID-19; G31.89 Other specified degenerative diseases of nervous system; E78.5 Hyperlipidemia, unspecified; I08.3 Combined rheumatic disorders of mitral, aortic and tricuspid valves; E87.5 Hyperkalemia; F17.210 Nicotine dependence, cigarettes, uncomplicated; G43.909 Migraine, unspecified, not intractable, without status migrainosus; I10 Essential (primary) hypertension; I25.2 Old myocardial infarction; K21.9 Gastro-esophageal reflux disease without esophagitis; W18.11XA Fall from or off toilet without subsequent striking against object, initial encounter; Z79.02 Long term (current) use of antithrombotics/antiplatelets; Z79.82 Long term (current) use of aspirin; Z79.899 Other long term (current) drug therapy; Z80.9 Family history of malignant neoplasm, unspecified; Z86.718 Personal history of other venous thrombosis and embolism; Z86.73 Personal history of transient ischemic attack (TIA), and cerebral infarction without residual deficits; Z90.710 Acquired absence of both cervix and uterus; Z95.1 Presence of aortocoronary bypass graft; Z98.42 Cataract extraction status, left eye; Z98.41 Cataract extraction status, right eye; Z91.040 Latex allergy status
CPT/HCPCS: 36415; 70450; 70496; 70498; 70551; 71045; 80048; 80053; 80061; 83735; 84145; 84443; 84484; 85025; 85610; 85730; 87635; 93270; 93306; 94640; 99285

== ENCOUNTER 2023-06-08 20:59 | Inpatient (IN) | payer MEDICARE, BC ==
--- NOTE | 2023-06-08 21:27 | ED ---
SOB HPI - General Chief Complaint: Shortness of Breath Stated Complaint: Chest pain Time Seen by Provider: 06/08/23 21:07 Source: patient, EMS Mode of arrival: EMS - History of Present Illness Initial Comments: This patient is 78-year-old woman who presents to have evaluation for shortness of breath, palpitations, chest tightness that had come on this evening. MD Complaint: shortness of breath, chest pain Onset/Timin -: hour(s) Severity: moderate Quality: other (Tight) Consistency: constant (Constant) Improves With: oxygen Known History Of: COPD Associated Symptoms: chest pain Treatments Prior to Arrival: none - Related Data Home Oxygen Therapy: No Home Medications Medication Instructions Recorded Confirmed Atorvastatin Calcium [Lipitor] 80 mg PO W/SUPPER 12/02/15 06/09/23 Vit C/E/Zn/Coppr/Lutein/Zeaxan 1 cap PO W/SUPPER 12/02/15 06/09/23 [Preservision Areds 2 Softgel] Clopidogrel [Plavix] 75 mg PO DAILY 12/05/15 06/09/23 Multivitamins, Thera [Multivitamin 1 tab PO DAILY 01/22/16 06/09/23 (formulary)] Calcium Carb-Vit D 500Mg-5Mcg 4 tab PO DAILY 03/03/17 06/09/23 [Oscal 500+D 5 Mcg (200 Iu)] traZODone HCL 300 mg PO HS 03/03/17 06/09/23 Isosorbide Mononitrate [Isosorbide 30 mg PO DAILY 05/12/18 06/09/23 Mononitrate ER] HYDROcodone/APAP 10-325MG [Corry 1 tab PO TID 06/09/23 06/09/23 10-325] Metoprolol Tartrate [Lopressor] 12.5 mg PO DAILY 06/09/23 06/09/23 Omeprazole 40 mg PO W/SUPPER 06/09/23 06/09/23 Tiotropium Br/Olodaterol HCl 1 puff INHALATION RT-DAILY 06/09/23 06/09/23 [Stiolto Respimat Inhal [place]] Previous Rx's Medication Instructions Recorded Apixaban [Eliquis] 5 mg PO BID #60 tab 06/12/23 Budesonide [Pulmicort Flexhaler] 1 puff INHALATION BID #1 each 06/12/23 Furosemide [Lasix] 40 mg PO 0900,1600 #60 tablet 06/12/23 Nitroglycerin Sl Tabs [Nitrostat] 0.4 mg SUBLINGUAL Q5M PRN #25 tab 06/12/23 Allergies Allergy/AdvReac Type Severity Reaction Status Date / Time latex Allergy Rash/Hives Verified 06/09/23 07:12 Review of Systems ROS Statement: Those systems with pertinent positive or pertinent negative responses have been documented in the HPI. ROS Other: All systems not noted in ROS Statement are negative. Constitutional: Reports: weakness. Denies: fever, chills Respiratory: Reports: cough, dyspnea, wheezes. Denies: hemoptysis Cardiovascular: Reports: chest pain, palpitations. 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 Last Myocardial Infarction Date:: 10/2011 History of Any Multi-Drug Resistant Organisms: None Reported Past Surgical History: Appendectomy, Back Surgery, Coronary Bypass/CABG, Heart Catheterization, Hysterectomy, Orthopedic Surgery Additional Past Surgical History / Comment(s): rt knee surgery, chris cataracts, heart cath (05/2013)-pt not sure if any stents, CABG 2011, COLONOSCOPY, Past Anesthesia/Blood Transfusion Reactions: Previous Problems w/ Anesthesia Additional Past Anesthesia/Blood Transfusion Reaction / Comment(s): WENT INTO CARDIAC ARREST IN [place] AFTER BACK SURGERY 2015. States has never had any problems with anesthesia before. States to her knowledge she does not know why. Past Psychological History: No Psychological Hx Reported Smoking Status: Current every day smoker - Past Family History Brother(s) Family Medical History: Cancer General Exam General appearance: alert, in distress, cachectic Head exam: Present: atraumatic, normocephalic Eye exam: Present: normal appearance. Absent: scleral icterus, conjunctival injection ENT exam: Present: mucous membranes dry Neck exam: Present: normal inspection Respiratory exam: Present: wheezes. Absent: respiratory distress, rales, rhonchi, stridor, accessory muscle use Cardiovascular Exam: Present: tachycardia, irregular rhythm, systolic murmur. Absent: diastolic murmur, rubs, gallop GI/Abdominal exam: Present: soft. Absent: distended, tenderness, guarding, rebound, rigid, mass Extremities exam: Present: normal inspection, normal capillary refill. Absent: pedal edema, calf tenderness Back exam: Present: normal inspection. Absent: CVA tenderness (R), CVA tenderness (L) Neurological exam: Present: alert Skin exam: Present: warm, dry, intact, normal color. Absent: rash Course Vital Signs 06/08/23 06/08/23 06/08/23 21:04 21:30 21:53 Temperature 97.0 F L Pulse Rate 158 H 130 H 140 H Respiratory 18 19 19 Rate Blood Pressure 102/82 110/83 96/70 O2 Sat by Pulse 97 90 L 97 Oximetry 06/08/23 06/09/23 06/09/23 22:57 02:04 02:33 Temperature Pulse Rate 69 51 L 45 L Respiratory 17 16 16 Rate Blood Pressure 115/65 82/40 73/35 O2 Sat by Pulse 95 95 96 Oximetry 06/09/23 06/09/23 06/09/23 02:51 03:17 03:38 Temperature Pulse Rate 50 L 53 L 49 L Respiratory 16 16 17 Rate Blood Pressure 82/38 101/43 99/41 O2 Sat by Pulse 94 L 94 L 95 Oximetry 06/09/23 06/09/23 06/09/23 04:15 05:42 06:15 Temperature Pulse Rate 46 L 53 L 48 L Respiratory 16 17 16 Rate Blood Pressure 96/38 128/52 103/43 O2 Sat by Pulse 96 92 L 98 Oximetry 06/09/23 07:34 Temperature 98 F Pulse Rate 49 L Respiratory 18 Rate Blood Pressure 106/48 O2 Sat by Pulse 99 Oximetry Medical Decision Making - Medical Decision Making The patient had chest x-ray that I interpreted as showing presence of congestive heart failure. No acute infiltrate or pneumothorax. Patient is 78-year-old woman coming for acute onset of dyspnea, chest tightness, racing heart. Patient found to be in atrial fibrillation that appears to be new diagnosis. She is started on Cardizem, and then she did revert to sinus rhythm after period of medication. The patient is admitted and monitored. The patient's troponin did increase and she is therefore discussed with cardiology who will see the patient. She is not symptomatic since the reversion to sinus rhythm Was pt. sent in by a medical professional or institution (, [facility], COCOA PRESS OPERATOR, urgent care, hospital, or [place] health care facility...) When possible be specific @ -[No] Did you speak to anyone other than the patient for history (EMS, parent, family, police, friend...)? What history was obtained from this source @ -[No] Did you review nursing and triage notes (agree or disagree)? Why? @ -[I reviewed and agree with nursing and triage notes] Were old charts reviewed (outside hosp., previous admission, EMS record, old EKG, old radiological studies, urgent care reports/EKG's, [place] health care facility records)? Report findings @ -S old charts were reviewed] Differential Diagnosis (chest pain, altered mental status, abdominal pain women, abdominal pain men, vaginal bleeding, weakness, fever, dyspnea, syncope, headache, dizziness, GI bleed, back pain, seizure, CVA, palpatations, mental health, musculoskeletal)? @ -[Differential Chest Pain: Stable Angina, Unstable Angina, STEMI, NSTEMI Aortic Dissection, Pneumothorax, Musculoskeletal, Esophageal Spasm GERD, Cholecystitis, Pancreatitis, Zoster, this is not meant to be an all-inclusive list. EKG interpreted by me (3pts min.). @ -[I interpreted as above] X-rays interpreted by me (1pt min.). @ -[I interpreted as above CT interpreted by me (1pt min.). @ -[None done] U/S interpreted by me (1pt. min.). @ -[None done] What testing was considered but not performed or refused? (CT, X-rays, U/S, labs)? Why? @ -[None] What meds were considered but not given or refused? Why? @ -[None] Did you discuss the management of the patient with other professionals (professionals i.e. , [facility], COCOA PRESS OPERATOR, lab, RT, psych nurse, social work coordinator, casing fluid tender, teacher, classification officer, case repairer)? Give summary @ -[I discussed the case with the admitting physician and with cardiology and the treatment recommendations are incorporated Was smoking cessation discussed for >3mins.? @ -[No] Was critical care preformed (if so, how long)? @ -[Yes, 35 minutes Were there social determinants of health that impacted care today? How? (Homelessness, low income, unemployed, alcoholism, drug addiction, transportation, low edu. Level, literacy, decrease access to med. care, skilled nursing, rehab)? @ -[No] Was there de-escalation of care discussed even if they declined (Discuss DNR or withdrawal of care, Hospice)? DNR status @ -[No] What co-morbidities impacted this encounter? (DM, HTN, Smoking, COPD, CAD, Cancer, CVA, ARF, Chemo, Hep., AIDS, mental health diagnosis, sleep apnea, morbid obesity)? @ -[Previous coronary artery disease, hypertension Was patient admitted / discharged? Hospital course, mention meds given and route, prescriptions, significant lab abnormalities, going to OR and other pertinent info. @ -[Patient will be admitted Undiagnosed new problem with uncertain prognosis? @ -[No] Drug Therapy requiring intensive monitoring for toxicity (Heparin, Nitro, Insulin, Cardizem)? @ -[Heparin, Cardizem Were any procedures done? @ -[No] Diagnosis/symptom? @ -[New onset atrial fibrillation with rapid ventricular rate NSTEMI Acute exacerbation of congestive heart failure Acute, or Chronic, or Acute on Chronic? @ -[Acute Uncomplicated (without systemic symptoms) or Complicated (systemic symptoms)? @ -[Uncomplicated Side effects of treatment? @ -[No] Exacerbation, Progression, or Severe Exacerbation? @ -[No] Poses a threat to life or bodily function? How? (Chest pain, USA, OR, pneumonia, PE, COPD, DKA, ARF, appy, cholecystitis, CVA, Diverticulitis, Homicidal, Suicidal, threat to staff... and all critical care pts) @ -[Yes - Lab Data Result diagrams: 06/10/23 08:38 06/10/23 08:38 Lab Results 06/08/23 06/08/23 06/08/23 Range/Units 21:24 21:24 21:24 WBC 15.7 H (3.8-10.6) k/uL RBC 4.51 (3.80-5.40) m/uL Hgb 13.8 (11.4-16.0) gm/dL Hct 43.5 (34.0-46.0) % MCV 96.3 (80.0-100.0) fL MCH 30.5 (25.0-35.0) pg MCHC 31.6 (31.0-37.0) g/dL RDW 13.7 (11.5-15.5) % Plt Count 212 (150-450) k/uL MPV 8.1 Neutrophils % 86 % Lymphocytes % 5 % Monocytes % 5 % Eosinophils % 3 % Basophils % 0 % Neutrophils # 13.5 H (1.3-7.7) k/uL Lymphocytes # 0.7 L (1.0-4.8) k/uL Monocytes # 0.7 (0-1.0) k/uL Eosinophils # 0.5 (0-0.7) k/uL Basophils # 0.0 (0-0.2) k/uL PT 10.2 (10.0-12.5) sec INR 0.9 (<1.2) APTT 26.7 (22.0-30.0) sec D-Dimer 2.61 H (<0.60) mg/L FEU Sodium 136 L (137-145) mmol/L Potassium 4.4 (3.5-5.1) mmol/L Chloride 105 (98-107) mmol/L Carbon Dioxide 21 L (22-30) mmol/L Anion Gap 10 mmol/L BUN 23 H (7-17) mg/dL Creatinine 0.71 (0.52-1.04) mg/dL Est GFR (CKD-EPI)AfAm >90 (>60 ml/min/1.73 sqM) Est GFR (CKD-EPI)NonAf 82 (>60 ml/min/1.73 sqM) Glucose 127 H (74-99) mg/dL Lactic Ac Sepsis Rflx Plasma Lactic Acid [place] (0.7-2.0) mmol/L Calcium 9.2 (8.4-10.2) mg/dL Total Bilirubin 0.8 (0.2-1.3) mg/dL AST 36 (14-36) U/L ALT 29 (4-34) U/L Alkaline Phosphatase 85 (38-126) U/L Troponin I (0.000-0.034) ng/mL NT-Pro-B Natriuret Pep 5720 pg/mL Total Protein 7.0 (6.3-8.2) g/dL Albumin 3.9 (3.5-5.0) g/dL 06/08/23 06/08/23 06/08/23 Range/Units 21:24 21:24 22:14 WBC (3.8-10.6) k/uL RBC (3.80-5.40) m/uL Hgb (11.4-16.0) gm/dL Hct (34.0-46.0) % MCV (80.0-100.0) fL MCH (25.0-35.0) pg MCHC (31.0-37.0) g/dL RDW (11.5-15.5) % Plt Count (150-450) k/uL MPV Neutrophils % % Lymphocytes % % Monocytes % % Eosinophils % % Basophils % % Neutrophils # (1.3-7.7) k/uL Lymphocytes # (1.0-4.8) k/uL Monocytes # (0-1.0) k/uL Eosinophils # (0-0.7) k/uL Basophils # (0-0.2) k/uL PT (10.0-12.5) sec INR (<1.2) APTT (22.0-30.0) sec D-Dimer (<0.60) mg/L FEU Sodium (137-145) mmol/L Potassium (3.5-5.1) mmol/L Chloride (98-107) mmol/L Carbon Dioxide (22-30) mmol/L Anion Gap mmol/L BUN (7-17) mg/dL Creatinine (0.52-1.04) mg/dL Est GFR (CKD-EPI)AfAm (>60 ml/min/1.73 sqM) Est GFR (CKD-EPI)NonAf (>60 ml/min/1.73 sqM) Glucose (74-99) mg/dL Lactic Ac Sepsis Rflx Y Plasma Lactic Acid [place] 2.6 H* (0.7-2.0) mmol/L Calcium (8.4-10.2) mg/dL Total Bilirubin (0.2-1.3) mg/dL AST (14-36) U/L ALT (4-34) U/L Alkaline Phosphatase (38-126) U/L Troponin I 0.068 H* (0.000-0.034) ng/mL NT-Pro-B Natriuret Pep pg/mL Total Protein (6.3-8.2) g/dL Albumin (3.5-5.0) g/dL - EKG Data -: EKG Interpreted by [facility] EKG shows normal: axis (Left axis deviation), intervals (QRS duration 129 ms, prolonged. QTc 380 ms, normal.), QRS complexes (Intraventricular conduction delay.), ST-T waves (ST/T wave abnormalities suggestive of lateral ischemia) Rate: tachycardia (Rate 158) Interpretation: other (Underlying rhythm is atrial fibrillation with rate 158 bpm) Disposition Clinical Impression: Atrial fibrillation with RVR, Elevated troponin Disposition: ADMITTED IP TO THIS [facility] Condition: Stable
--- NOTE | 2023-06-08 21:47 | XR ---
EXAMINATION TYPE: XR chest 1V portable DATE OF EXAM: 06/08/2023 Comparison: 05/10/2021 Clinical History: 78-year-old female shortness of breath, chest pain, dyspnea Findings: Median sternotomy wires are present. Heart borderline in size. Hyperinflation. There are small pleural effusions with bibasilar opacities. Impression: COPD with superimposed CHF and pulmonary vascular congestion. Small bilateral pleural effusions with adjacent atelectasis and/or consolidation.
[2023-06-08] MEDS: DILTIAZEM DRIP BOLUS FROM BAG 1 MG SOLN IV ONE (21:51)
[2023-06-08] MEDS: DILTIAZEM 125 MG in SODIUM CHLORIDE 0.9% 100 ML IV SCH (21:51)
[2023-06-08 21:55] LABS: Basophils % (A) 0 %; Eosinophils # (A) 0.5 k/uL (0-0.7); Eosinophils % (A) 3 %; HCT 43.5 % (34.0-46.0); HGB 13.8 gm/dL (11.4-16.0); Lymphocytes # (A) 0.7 k/uL (1.0-4.8); Lymphocytes % (A) 5 %; MCH 30.5 pg (25.0-35.0); MCHC 31.6 g/dL (31.0-37.0); MCV 96.3 fL (80.0-100.0); Mean Platelet Volume 8.1; Monocytes # (A) 0.7 k/uL (0-1.0); Monocytes % (A) 5 %; Neutrophils # (A) 13.5 k/uL (1.3-7.7); Neutrophils % (A) 86 %; Platelet Count 212 k/uL (150-450); RBC 4.51 m/uL (3.80-5.40); RDW 13.7 % (11.5-15.5); WBC 15.7 k/uL (3.8-10.6)
[2023-06-08 22:13] LABS: ALT 29 U/L (4-34); AST 36 U/L (14-36); African American GFR (CKD) >90 (>60 ml/min/1.73 sqM); Albumin 3.9 g/dL (3.5-5.0); Alkaline Phosphatase 85 U/L (38-126); Anion Gap 10 mmol/L; Blood Urea Nitrogen 23 mg/dL (7-17); Calcium 9.2 mg/dL (8.4-10.2); Carbon Dioxide 21 mmol/L (22-30); Chloride 105 mmol/L (98-107); Glucose 127 mg/dL (74-99); Non-African American GFR(CKD) 82 (>60 ml/min/1.73 sqM); Potassium 4.4 mmol/L (3.5-5.1); Sodium 136 mmol/L (137-145); Total Bilirubin 0.8 mg/dL (0.2-1.3)
[2023-06-08 22:17] LABS: INR 0.9 (<1.2); Partial Thromboplastin Time 26.7 sec (22.0-30.0); Prothrombin Time 10.2 sec (10.0-12.5)
[2023-06-08 22:22] LABS: NT-Pro-B-Type Natriuretic Pept 5720 pg/mL
[2023-06-08] MEDS: HYDROcodone/APAP 10-325MG 1 EACH TAB PO ONE (23:01)
[2023-06-09] MEDS: traZODone HCL 100 MG TAB PO STA (00:35)
[2023-06-09] MEDS: DILTIAZEM ORAL 30 MG TAB PO STA (00:36)
[2023-06-09] MEDS: FUROSEMIDE 10 MG/ML 4 ML VIAL IV SCH (02:05)
--- NOTE | 2023-06-09 03:28 | CT ---
EXAM: CT Angiography Chest With Intravenous Contrast CLINICAL HISTORY: ITS.REASON CT Reason: dyspnea, possible PE TECHNIQUE: Axial computed tomographic angiography images of the chest with intravenous contrast. CTDI is 11.1 mGy and DLP is 198.9 mGy-cm. This CT exam was performed using one or more of the following dose reduction techniques: automated exposure control, adjustment of the mA and/or kV according to patient size, and/or use of iterative reconstruction technique. MIP reconstructed images were created and reviewed. COMPARISON: Comparison made to prior CT contrast from July 28, 2018. FINDINGS: Pulmonary arteries: Unremarkable. No pulmonary embolism. Aorta: Ectasia of the ascending aorta measuring 32.5 mm. No thoracic aortic aneurysm. Lungs: Advanced centrilobular emphysematous changes with bronchitis and pneumonitis and bilateral lower lobe consolidations. Pleural space: Moderate bilateral pleural effusions. No pneumothorax. Heart: Status post CABG. Moderate ventriculomegaly. Heavily calcified atherosclerotic disease of the coronary arteries. Heavy calcification of the aortic valve. No significant pericardial effusion. No evidence of RV dysfunction. Bones/joints: Status post median sternotomy. No dislocation. Soft tissues: Hepatic steatosis. Lymph nodes: Enlarged mediastinal and hilar lymph nodes. IMPRESSION: No evidence of pulmonary emboli. Advanced centrilobular emphysematous changes with bronchitis, pneumonitis and bilateral lower lobe consolidations with moderate pleural effusions. Enlarged mediastinal and hilar lymph nodes. Status post CABG with moderate ventriculomegaly.
[2023-06-09] MEDS ORDERED: HEPARIN SODIUM 1,000 UN/ML (10ML VL) IV PRN (06:38)
[2023-06-09] MEDS: HEPARIN SOD,PORK IN 0.45% NACL 25,000 UNIT in 0.45% NACL 1 250ML.BAG IV SCH ×2 (06:59→09:04)
[2023-06-09] MEDS: HEPARIN SODIUM 1,000 UN/ML (10ML VL) IV ONE ×2 (07:04→13:15)
[2023-06-09] MEDS ORDERED: NITROGLYCERIN SL TABS 0.4 MG TAB SUBLINGUAL PRN (08:10)
[2023-06-09] MEDS ORDERED: ALPRAZolam 0.5 MG TAB PO PRN (08:10)
[2023-06-09] MEDS: METOPROLOL TARTRATE 12.5 MG TAB PO SCH (08:55)
[2023-06-09] MEDS: CLOPIDOGREL 75 MG TAB PO SCH (08:56)
[2023-06-09] MEDS: ATORVASTATIN 80 MG TAB PO STA (08:56)
[2023-06-09] MEDS: ISOSORBIDE MONONITRATE ER 30 MG TAB.ER.24H PO SCH (08:57)
[2023-06-09] MEDS: CALCIUM CARB-VIT D 500 MG-5 MCG TAB PO SCH (08:57)
[2023-06-09] MEDS: ASPIRIN 325 MG TAB PO STA (08:57)
[2023-06-09] MEDS: oxyCODONE-APAP 10-325MG 1 EACH TAB PO PRN (08:59)
[2023-06-09] MEDS ORDERED: ASPIRIN 81 MG PO SCH (09:00)
[2023-06-09 09:49] LABS: Glucose,Whole Blood 85 mg/dL (70-110)
--- NOTE | 2023-06-09 11:46 | P.CRDCN ---
History of Present Illness Consult date: 06/09/23 Consult reason: atrial fibrillation, congestive heart failure History of present illness: History of present illness: This is a 78-year-old female patient of Dr. Cespedes with past medical history of coronary artery disease status post CABG with BENSON to LAD and SVG to diagonal SVG to OM and SVG to PDA, lower extremity PAD, hypertension, dyslipidemia, carotid atherosclerosis, valvular heart disease with aortic stenosis and regurgitation. We have been asked to evaluate the patient for new onset atrial fibrillation and congestive heart failure. Patient states that she came into the hospital because of shortness of breath and her heart was racing and she felt palpitations. She feels better at the time of this evaluation. Patient has been started on a Cardizem bolus of 5 mg followed by oral Cardizem and heparin drip. Patient also started on IV Lasix 40 mg every 12 hours. EKG #1 atrial fibrillation with ventricular rate of 158 bpm, #2 sinus bradycardia at 58 bpm left bundle branch block Chest x-ray: COPD with superimposed heart failure and pulm vascular congestion. Small bilateral pleural effusions with adjacent atelectasis and/or consolidation. CTA of the chest revealed no evidence of pulmonary embolism. Advanced centrilobular emphysematous changes with bronchitis, pneumonitis and bilateral lower lobe consolidations with moderate pleural effusions. Enlarged mediastinal and hilar lymph nodes. WBC 15.7, hemoglobin 13.8, platelet count 212. INR 0.9. D-dimer 2.61. Sodium 136, potassium 4.4, BUN 23 and creatinine 0.71. Lactic acid initially 2 point 6 repeat at 0.9. Liver function tests are within normal limits. Troponin 0.068, 2.82, 4.56. proBNP 5720. Home cardiac medications: Aspirin 81 mg daily, atorvastatin 80 mg with supper, Plavix 75 mg daily, Lasix 40 mg daily, Imdur 30 mg daily, Lopressor 12.5 mg daily. Most recent echocardiogram performed in the office on 08/25/2022 revealed EF of 50 to 55%, borderline concentric left hypertrophy. Trileaflet aortic valve with moderate to severe aortic regurgitation. Aortic valve is thickened and calcified. Mild mitral regurgitation. Moderate tricuspid regurgitation. Normal pulmonary artery systolic pressure. 30-day event monitor 06/24/2021: #1 sinus rhythm with evidence of intraventricular conduction delay. #2 APCs with brief runs of SVT/sinus tachycardia with heart rate 130. #3 sinus bradycardia with first-degree heart block. #4 no evidence of any definite episodes of atrial fibrillation or ventricular tachycardia. No symptoms noted. Review Of Systems: At the time of my exam: CONSTITUTIONAL: Denies fever or chills. HEENT: Denies blurred vision, vision changes, or eye pain. Denies hemoptysis CARDIOVASCULAR: Denies chest pain. Denies orthopnea. Denies PND. Denies palpitations RESPIRATORY: Denies shortness of breath. GASTROINTESTINAL: Denies abdominal pain. Denies nausea or vomiting. HEMATOLOGIC: Denies bleeding disorders. GENITOURINARY: Denies any blood in urine. SKIN: Denies pruitis. Denies rash. Physical examination: Gen: This is a 78-year-old female appears to be in no acute distress. VS: reviewed HEENT: Head is atraumatic, normocephalic. Pupils equal, round. Sclerae is anicteric. NECK: Supple. No JVD. LUNGS: Clear to auscultation. No wheezes or rhonchi. No intercostal retractions. HEART: Regular rate and rhythm. Systolic murmur at the apex. ABDOMEN: Soft No tenderness. EXTREMITIES: No pedal edema. No calf tenderness. NEUROLOGICAL: Patient is awake, alert and oriented x3. Assessment: Non-ST elevated myocardial infarction New onset paroxysmal atrial fibrillation with RVR, converted to sinus rhythm Leukocytosis History of coronary artery disease with previous CABG with BENSON to LAD, SVG to diagonal, SVG to OM, SVG to PDA Lower extremity PAD Hypertension Dyslipidemia Carotid atherosclerosis Valvular heart disease with aortic stenosis and regurgitation Moderate pleural effusions on CT Enlarged mediastinal and hilar lymph nodes on CT Plan: Continue patient's home cardiac medications Continue heparin drip Patient will be resumed on Eliquis following cardiac catheterization Patient will be scheduled for cardiac catheterization with Dr. Cespedes either later today or tomorrow continue patient's home cardiac medications Obtain 2-D echocardiogram and Doppler study to assess cardiac structure and function Further recommendations to follow based upon clinical course Thank you kindly for this consultation. Nurse practitioner note has been reviewed, I agree with documented findings and plan of care. Patient was seen and examined. 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 Last Myocardial Infarction Date:: 10/2011 History of Any Multi-Drug Resistant Organisms: None Reported Past Surgical History: Appendectomy, Back Surgery, Coronary Bypass/CABG, Heart Catheterization, Hysterectomy, Orthopedic Surgery Additional Past Surgical History / Comment(s): rt knee surgery, chris cataracts, heart cath (05/2013)-pt not sure if any stents, CABG 2011, COLONOSCOPY, Past Anesthesia/Blood Transfusion Reactions: Previous Problems w/ Anesthesia Additional Past Anesthesia/Blood Transfusion Reaction / Comment(s): WENT INTO CARDIAC ARREST IN RECOVERY AFTER BACK SURGERY 2015. States has never had any problems with anesthesia before. States to her knowledge she does not know why. Past Psychological History: No Psychological Hx Reported Smoking Status: Current every day smoker - Past Family History Brother(s) Family Medical History: Cancer Medications and Allergies Home Medications Medication Instructions Recorded Confirmed Type Atorvastatin Calcium [Lipitor] 80 mg PO W/SUPPER 12/02/15 06/09/23 History Vit C/E/Zn/Coppr/Lutein/Zeaxan 1 cap PO W/SUPPER 12/02/15 06/09/23 History [Preservision Areds 2 Softgel] Clopidogrel [Plavix] 75 mg PO DAILY 12/05/15 06/09/23 History Aspirin [Adult Low Dose Aspirin EC] 81 mg PO DAILY 01/22/16 06/09/23 History Multivitamins, Thera [Multivitamin 1 tab PO DAILY 01/22/16 06/09/23 History (formulary)] Calcium Carb-Vit D 500Mg-5Mcg 4 tab PO DAILY 03/03/17 06/09/23 History [Oscal 500+D 5 Mcg (200 Iu)] Furosemide [Lasix] 40 mg PO DAILY 03/03/17 06/09/23 History traZODone HCL 300 mg PO HS 03/03/17 06/09/23 History Isosorbide Mononitrate [Isosorbide 30 mg PO DAILY 05/12/18 06/09/23 History Mononitrate ER] HYDROcodone/APAP 10-325MG [[place] 1 tab PO TID 06/09/23 06/09/23 History 10-325] Metoprolol Tartrate [Lopressor] 12.5 mg PO DAILY 06/09/23 06/09/23 History Nitrofurantoin Monohyd/M-Cryst 100 mg PO BID 06/09/23 06/09/23 History [Macrobid] Omeprazole 40 mg PO W/SUPPER 06/09/23 06/09/23 History Tiotropium Br/Olodaterol HCl 1 puff INHALATION RT-DAILY 06/09/23 06/09/23 History [Stiolto Respimat Inhal [place]] Allergies Allergy/AdvReac Type Severity Reaction Status Date / Time latex Allergy Rash/Hives Verified 06/09/23 07:12 Physical Exam Vitals: Vital Signs Temp Pulse Resp BP Pulse Ox 06/09/23 07:34 98 F 49 L 18 106/48 99 06/09/23 06:15 48 L 16 103/43 98 06/09/23 05:42 53 L 17 128/52 92 L 06/09/23 04:15 46 L 16 96/38 96 06/09/23 03:38 49 L 17 99/41 95 06/09/23 03:17 53 L 16 101/43 94 L 06/09/23 02:51 50 L 16 82/38 94 L 06/09/23 02:33 45 L 16 73/35 96 06/09/23 02:04 51 L 16 82/40 95 06/08/23 22:57 69 17 115/65 95 06/08/23 21:53 140 H 19 96/70 97 06/08/23 21:30 130 H 19 110/83 90 L 06/08/23 21:04 97.0 F L 158 H 18 102/82 97 Intake and Output 06/08/23 06/09/23 06/09/23 22:59 06:59 14:59 Intake Total 10.75 Balance 10.75 Intake: Intake, IV Titration 10.75 Amount Diltiazem 125 mg In 10.75 Sodium Chloride 0.9% 100 ml @ 5 MG/HR 5 mls/hr IV .Q24H [facility] Rx#:[id number] Other: Weight 43.998 kg Results 06/08/23 21:24 06/08/23 21:24 Cardiac Enzymes 06/08/23 06/08/23 06/09/23 Range/Units 21:24 21:24 01:39 AST 36 (14-36) U/L Troponin I 0.068 H* 2.820 H* (0.000-0.034) ng/mL 06/09/23 Range/Units 03:31 AST (14-36) U/L Troponin I 4.560 H* (0.000-0.034) ng/mL Coagulation 06/08/23 Range/Units 21:24 PT 10.2 (10.0-12.5) sec APTT 26.7 (22.0-30.0) sec CBC 06/08/23 Range/Units 21:24 WBC 15.7 H (3.8-10.6) k/uL RBC 4.51 (3.80-5.40) m/uL Hgb 13.8 (11.4-16.0) gm/dL Hct 43.5 (34.0-46.0) % Plt Count 212 (150-450) k/uL Comprehensive Metabolic Panel 06/08/23 Range/Units 21:24 Sodium 136 L (137-145) mmol/L Potassium 4.4 (3.5-5.1) mmol/L Chloride 105 (98-107) mmol/L Carbon Dioxide 21 L (22-30) mmol/L BUN 23 H (7-17) mg/dL Creatinine 0.71 (0.52-1.04) mg/dL Glucose 127 H (74-99) mg/dL Calcium 9.2 (8.4-10.2) mg/dL AST 36 (14-36) U/L ALT 29 (4-34) U/L Alkaline Phosphatase 85 (38-126) U/L Total Protein 7.0 (6.3-8.2) g/dL Albumin 3.9 (3.5-5.0) g/dL Current Medications Generic Name Dose Route Start Last Admin Trade Name Freq PRN Reason Stop Dose Admin Aspirin 81 mg 06/09/23 09:00 Aspirin 81 Mg PO DAILY [facility] Atorvastatin Calcium 80 mg 06/09/23 21:00 Atorvastatin 80 Mg Tab PO HS [facility] Calcium Carbonate 4 each 06/09/23 09:00 Calcium Carb-Vit D 500 Mg-5 Mcg Tab PO DAILY [facility] Clopidogrel Bisulfate 75 mg 06/09/23 09:00 Clopidogrel 75 Mg Tab PO DAILY [facility] Furosemide 40 mg 06/09/23 01:00 06/09/23 02:05 Furosemide 10 Mg/Ml 4 Ml Vial IV Not Given Q12H [facility] Heparin Sodium (Porcine) 0 unit 06/09/23 06:38 Heparin Sodium 1,000 Un/Ml (10ml Vl) IV PER PROTOCOL PRN Low PTT Protocol Diltiazem HCl 125 mg/ Sodium 125 mls @ 5 mls/hr 06/08/23 22:00 06/09/23 00:00 Chloride IV 0 mg/hr .Q24H [facility] 0 mls/hr Infusion 5 MG/HR Heparin Sodium/Sodium Chloride 250 mls @ 5.28 mls/hr 06/09/23 06:45 06/09/23 06:59 25,000 unit/ Sodium Chloride IV 12 units/kg/hr .Q24H [facility] 5.28 mls/hr Administration Protocol 12 UNITS/KG/HR Isosorbide Mononitrate 30 mg 06/09/23 09:00 Isosorbide Mononitrate Er 30 Mg Tab.Er.24h PO DAILY [facility] Metoprolol Tartrate 12.5 mg 06/09/23 09:00 Metoprolol Tartrate 12.5 Mg Tab PO DAILY [facility] Oxycodone/Acetaminophen 1 each 06/09/23 00:49 Oxycodone-Apap 10-325mg 1 Each Tab PO QID PRN Pain Sodium Chloride 10 ml 06/09/23 09:00 Sodium Chloride 0.9% Flush 10 Ml Syringe IV BID [facility] Intake and Output 06/08/23 06/09/23 06/09/23 22:59 06:59 14:59 Intake Total 10.75 Balance 10.75 Intake: Intake, IV Titration 10.75 Amount Diltiazem 125 mg In 10.75 Sodium Chloride 0.9% 100 ml @ 5 MG/HR 5 mls/hr IV .Q24H [facility] Rx#:[id number] Other: Weight 43.998 kg 06/08/23 21:24 06/08/23 21:24
[2023-06-09] MEDS: MIDAZOLAM 2 MG/2 ML VIAL IVP ONE (12:40)
[2023-06-09] MEDS: LIDOCAINE 1% INJ 10MG/ML (30 ML VIAL-PF) SQ ONE (12:42)
[2023-06-09] MEDS: IV FLUID CONTINUATION 1,000 ML IV ONE (12:42)
[2023-06-09] MEDS: IOPAMIDOL-370 100ML BTL INJ ONE ×2 (13:15→13:45)
[2023-06-09] MEDS ORDERED: RX INFO: IV CONTRAST WAS GIVEN 1 EACH MISC MISCELLANE PRN (13:37)
--- NOTE | 2023-06-09 13:44 | P.PCN ---
Date of Procedure: 06/09/23 Operative Findings: CARDIAC CATHETERIZATION PERFORMING PHYSICIAN: Chuy Cespedes MD, RPVI PROCEDURE PERFORMED: 1. Selective right and left coronary angiogram 2. BENSON into LAD angiogram and SVG to OM angiogram and SVG to RCA angiogram 3. iFRof the PLV branch of the RCA 4.. Left heart catheterization 3. Ultrasound-guided access of the right common femoral arteryand selective right common femoral artery angiogram INDICATION: Acute non-ST elevation myocardial infarction COMPLICATION: None APPROACH: Right common femoral artery LEVEL OF SEDATION: Moderate with sedation in length of 55 minutes PROCEDURE DESCRIPTION: After obtaining an informed consent, the patient was brought to cardiac fish farm laborer. Local anesthesia was performed using lidocaine subcutaneously. The right common femoral artery was cannulated using Seldinger technique, the guidewire passed easily, following that we advanced a 6 Welsh sheath dilator assembly, the wire and dilator were removed and sheath was flushed. Selective right and left coronary angiogram using a 6-Welsh JR4 and JL catheters. The BENSON into LAD angiogram and SVG to OM angiogram performed using the JR4 catheter. The SVG to RCA angiogram was performed using multipurpose catheter. Following that we did left heart catheterization using 6-Welsh AL1 catheter After that I decided to do Doppler wire measurement of the PLV of RCA. After zeroing the Doppler wire and equalizing between the Doppler wire and guiding catheter which was multipurpose catheter the SVG was engaged and the PLV was wired. We did iFR and that came in to be nonischemic at 0.97. The procedure was completed there was no complication. SELECTIVE CORONARY ANGIOGRAM: The right coronary artery: is occluded Left main: is extremely calcified The left circumflex: is occluded The left anterior descending artery: is occluded Coronary bypasses angiogram: The BENSON to LAD is patent The SVG to OM is patent The SVG to RCA is patent was intermediate disease involving the PLV branch of the RCA documented to be nonflow limiting by Doppler wire HEMODYNAMICS: The LVEDP was 12 mmHg with about 10 mm peak to peak gradient was identified CONCLUSION: 1. Severe triple-vessel coronary artery disease 2. Patent BENSON to LAD. Patent SVG to OM. Patent SVG to RCA with intermediate disease involving the PLV branch of the RCA 3. Normal left-sided filling pressure and only mild gradient was identified across aortic valve POSTPROCEDURE MANAGEMENT: medical treatment
[2023-06-09] MEDS: SODIUM CHLORIDE 0.9% 1,000 ML IV SCH (14:24)
--- NOTE | 2023-06-09 14:42 | P.HPIM ---
History of Present Illness H&P Date: 06/09/23 Chief Complaint: Dyspnea, palpitation This is a pleasant 78-year-old female, hard of hearing, with past medical history significant for CAD, CABG, aortic stenosis and aortic regurgitation, hypertension, hyperlipidemia, carotid athsclerosis, PAD, ongoing nicotine dependence, tubular adenoma transverse colon, tubular adenoma ascending colon, internal hemorrhoids per colonoscopy with Dr. Flowers, transverse colon biopsy reported sessile serrated adenoma 06/11/2022 and multiple other medical issues , presented to the ER with complaints of worsening dyspnea, palpitations and chest pain. Reports increased shortness of breath with occasional nonproductive cough x 2 days, followed up with PCP, attempted a new inhaler without improvement. Last night developed palpitations,chest pain with diaphoresis, proceeded to the ER. D-dimer 2.61 .chest CTA reported negative for PE, moderate bilateral pleural effusions, enlarged mediastinal and hilar lymph nodes. EKG reported atrial fibrillation with RVR, second EKG reported sinus bradycardia with left bundle branch block. Troponin 0.068, 2.82, 4.56. proBNP 5720. Heparin and Cardizem drips initiated along with scheduled Lasix IV push. Patient converted to sinus rhythm. Afebrile, WBC 15.7, hemoglobin 13.8, platelets 212, INR 0.9. Sodium 136, potassium 4.4, bicarb 21, BUN 23, creatinine 0.71, glucose 127, lactic acid 2.6 currently down to 0.9. Review of Systems ROS Statement: Those systems with pertinent positive or pertinent negative responses have been documented in the HPI. ROS Other: All systems not noted in ROS Statement are negative. 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 Last Myocardial Infarction Date:: 10/2011 History of Any Multi-Drug Resistant Organisms: None Reported Past Surgical History: Appendectomy, Back Surgery, Coronary Bypass/CABG, Heart Catheterization, Hysterectomy, Orthopedic Surgery Additional Past Surgical History / Comment(s): rt knee surgery, chris cataracts, heart cath (05/2013)-pt not sure if any stents, CABG 2011, COLONOSCOPY, Past Anesthesia/Blood Transfusion Reactions: Previous Problems w/ Anesthesia Additional Past Anesthesia/Blood Transfusion Reaction / Comment(s): WENT INTO CARDIAC ARREST IN RECOVERY AFTER BACK SURGERY 2015. States has never had any problems with anesthesia before. States to her knowledge she does not know why. Past Psychological History: No Psychological Hx Reported Smoking Status: Current every day smoker - Past Family History Brother(s) Family Medical History: Cancer Medications and Allergies Home Medications Medication Instructions Recorded Confirmed Type Atorvastatin Calcium [Lipitor] 80 mg PO W/SUPPER 12/02/15 06/09/23 History Vit C/E/Zn/Coppr/Lutein/Zeaxan 1 cap PO W/SUPPER 12/02/15 06/09/23 History [Preservision Areds 2 Softgel] Clopidogrel [Plavix] 75 mg PO DAILY 12/05/15 06/09/23 History Aspirin [Adult Low Dose Aspirin EC] 81 mg PO DAILY 01/22/16 06/09/23 History Multivitamins, Thera [Multivitamin 1 tab PO DAILY 01/22/16 06/09/23 History (formulary)] Calcium Carb-Vit D 500Mg-5Mcg 4 tab PO DAILY 03/03/17 06/09/23 History [Oscal 500+D 5 Mcg (200 Iu)] Furosemide [Lasix] 40 mg PO DAILY 03/03/17 06/09/23 History traZODone HCL 300 mg PO HS 03/03/17 06/09/23 History Isosorbide Mononitrate [Isosorbide 30 mg PO DAILY 05/12/18 06/09/23 History Mononitrate ER] HYDROcodone/APAP 10-325MG [[place] 1 tab PO TID 06/09/23 06/09/23 History 10-325] Metoprolol Tartrate [Lopressor] 12.5 mg PO DAILY 06/09/23 06/09/23 History Nitrofurantoin Monohyd/M-Cryst 100 mg PO BID 06/09/23 06/09/23 History [Macrobid] Omeprazole 40 mg PO W/SUPPER 06/09/23 06/09/23 History Tiotropium Br/Olodaterol HCl 1 puff INHALATION RT-DAILY 06/09/23 06/09/23 History [Stiolto Respimat Inhal [place]] Allergies Allergy/AdvReac Type Severity Reaction Status Date / Time latex Allergy Rash/Hives Verified 06/09/23 07:12 Physical Exam Vitals: Vital Signs Temp Pulse Resp BP Pulse Ox 06/09/23 07:34 98 F 49 L 18 106/48 99 06/09/23 06:15 48 L 16 103/43 98 06/09/23 05:42 53 L 17 128/52 92 L 06/09/23 04:15 46 L 16 96/38 96 06/09/23 03:38 49 L 17 99/41 95 06/09/23 03:17 53 L 16 101/43 94 L 06/09/23 02:51 50 L 16 82/38 94 L 06/09/23 02:33 45 L 16 73/35 96 06/09/23 02:04 51 L 16 82/40 95 06/08/23 22:57 69 17 115/65 95 06/08/23 21:53 140 H 19 96/70 97 06/08/23 21:30 130 H 19 110/83 90 L 06/08/23 21:04 97.0 F L 158 H 18 102/82 97 Intake and Output 06/08/23 06/09/23 06/09/23 22:59 06:59 14:59 Intake Total 10.75 Balance 10.75 Intake: Intake, IV Titration 10.75 Amount Diltiazem 125 mg In 10.75 Sodium Chloride 0.9% 100 ml @ 5 MG/HR 5 mls/hr IV .Q24H [facility] Rx#:[id number] Other: Weight 43.998 kg PHYSICAL EXAM: VITAL SIGNS: [As above] GENERAL: Hard of hearing, alert and oriented x 3, sitting up on stretcher, no acute distress HEENT: Normocephalic, atraumatic conjunctivae normal. eyes normal. NECK: Supple, no JVD. No thyroid enlargement. No LNs CARDIOVASCULAR: S1, S2 regular. Systolic murmur RESPIRATION: Unlabored, CTA, breath sounds diminished in the bases. No rhonchi or crackles. No bronchial breathing. ABDOMEN: Soft, nontender . No guarding. no masses palpable. No ascites, No hepatosplenomegaly.Bowel sounds heard. LEGS: No edema. no swelling NERVOUS SYSTEM: Cranial N 2-12 grossly normal. No focal deficits. Strength and sensation grossly intact. Skin: Warm and dry, no rash Results CBC & Chem 7: 06/08/23 21:24 06/08/23 21:24 Labs: Abnormal Lab Results - Last 24 Hours (Table) 06/08/23 06/08/23 06/08/23 Range/Units 21:24 21:24 21:24 WBC 15.7 H (3.8-10.6) k/uL Neutrophils # 13.5 H (1.3-7.7) k/uL Lymphocytes # 0.7 L (1.0-4.8) k/uL D-Dimer 2.61 H (<0.60) mg/L FEU Sodium 136 L (137-145) mmol/L Carbon Dioxide 21 L (22-30) mmol/L BUN 23 H (7-17) mg/dL Glucose 127 H (74-99) mg/dL Plasma Lactic Acid [place] (0.7-2.0) mmol/L Troponin I (0.000-0.034) ng/mL 06/08/23 06/08/23 06/09/23 Range/Units 21:24 21:24 01:39 WBC (3.8-10.6) k/uL Neutrophils # (1.3-7.7) k/uL Lymphocytes # (1.0-4.8) k/uL D-Dimer (<0.60) mg/L FEU Sodium (137-145) mmol/L Carbon Dioxide (22-30) mmol/L BUN (7-17) mg/dL Glucose (74-99) mg/dL Plasma Lactic Acid [place] 2.6 H* (0.7-2.0) mmol/L Troponin I 0.068 H* 2.820 H* (0.000-0.034) ng/mL 06/09/23 Range/Units 03:31 WBC (3.8-10.6) k/uL Neutrophils # (1.3-7.7) k/uL Lymphocytes # (1.0-4.8) k/uL D-Dimer (<0.60) mg/L FEU Sodium (137-145) mmol/L Carbon Dioxide (22-30) mmol/L BUN (7-17) mg/dL Glucose (74-99) mg/dL Plasma Lactic Acid [place] (0.7-2.0) mmol/L Troponin I 4.560 H* (0.000-0.034) ng/mL Assessment and Plan Assessment: Acute Non-STEMI New onset paroxysmal atrial fibrillation with RVR, converted to sinus rhythm Acute CHF exacerbation, diastolic dysfunction, echo pending Enlarged mediastinal and hilar lymph nodes reported per CTA Moderate pleural effusions reported per CTA Leukocytosis Lactic acidosis, resolved CAD, history of [place], CABG Moderate aortic stenosis Moderate aortic regurgitation Carotid arterial sclerosis PAD History of CVA Gastroesophageal reflux disease Ongoing nicotine dependence, 1/2 pack/day x 50 years Transverse colon biopsy reported sessile serrated adenoma 06/11/2022 , further follow-up outpatient with follow-up endoscopy as advised per general surgery. Hypertension Hyperlipidemia History of right thyroid nodule, monitoring outpatient with PCP Plan: Continue on current medication regimen ,monitoring and symptomatic treatment. Anticoagulated on heparin drip. Diuresing with IV push Lasix , close monitoring of renal function, electrolytes with repeat labs ordered for a.m. evaluated by cardiology with recommendations noted and appreciated. Echo and cardiac catheterization ordered. Pulmonary consulted regarding abnormal CTA. The impression and plan of care has been dictated as directed. : I performed a history and examination of this patient, discussed the same with the dictator. I agree with the dictator's note ,documented as a scribe. Any additional findings or plans will be noted.
[2023-06-09] MEDS: ATROPINE SULFATE 0.1 MG/ML 10ML SYRINGE ONE (17:36)
[2023-06-09] MEDS: ATORVASTATIN 80 MG TAB PO SCH (21:05)
[2023-06-09] MEDS: APIXABAN 5 MG TAB PO SCH (21:05)
[2023-06-09] MEDS: DILTIAZEM 125 MG in SODIUM CHLORIDE 0.9% 100 ML IV SCH (23:23)
[2023-06-10] MEDS: ALPRAZolam 0.25 MG TAB PO PRN (00:34)
[2023-06-10] MEDS ORDERED: IPRATROPIUM-ALBUTEROL 3 ML NEB INHALATION PRN (02:38)
--- NOTE | 2023-06-10 03:08 | P.CNPUL ---
History of Present Illness Consult date: 06/10/23 Requesting physician: Sobeida Covarrubias Reason for consult: other (Bilateral pleural effusions and mediastinal lymphadenopathy) Chief complaint: Shortness of breath, heart palpitations, chest pain History of present illness: Patient is a 78-year-old white female with past medical history significant for coronary artery disease with previous CABG, aortic stenosis and regurgitation, hypertension, hyperlipidemia, TIA/CVA, PAD, chronic ongoing tobacco dependence, COPD, among other things. Her primary care provider is a ANDRA Aly. Patient has been experiencing ongoing worsening shortness of breath and occasional heart palpitations that started on Wednesday. No episodes of syncope. on June 08, she started to have substernal chest tightness while at rest, this started around 1929, she presented to the emergency room approximately 2 hours later. She was found to be in atrial fibrillation with rapid ventricular response. She was started on Cardizem infusion per cardiology recommendation. She had elevated troponins and she was taken to [facility] yesterday. Previous bypasses were felt to be patent including BENSON to the LAD, SVG to the OM, and SVG to RCA. She did have intermediate disease involving the PLV branch of the RCA. No PCI or stenting was performed. Chest x-ray on arrival showed hyperinflation with superimposed pulmonary vascular congestion, interstitial edema, and small bilateral pleural effusions and associated atelectasis consistent with CHF. NT proBNP was elevated at 5720. Patient was started on Lasix 40 mg twice daily. We were consulted for the bilateral pleural effusions and CTA findings. She did have an elevated D-dimer on this admission, and a follow-up chest CTA showed no evidence of pulmonary emboli. It did show advanced central lobar emphysematous changes with possible bronchitis, pneumonitis and bilateral lobe consolidation with moderate pleural effusions. There is enlarged mediastinal and hilar lymphadenopathy. Patient herself denies any infectious symptoms other than a dry nonproductive cough. She does have COPD and heavy smoking history. She continues to smoke approximately 6 cigarettes per day. The dry cough has been ongoing since starting a new inhaler, Stiolto, which was given to her by her PCP. She attributes her symptoms to this new medication. In the past, she has not tolerated Trelegy inhaler due to reported heart palpitations and arrhythmias. She denies any infectious symptoms such as fever, chills, myalgias, sputum production or hemoptysis. She is currently afebrile. CBC from admission: WC count of 15.7, hemoglobin 13.8, hematocrit 43.5, platelets 212. BMP on admission: Sodium 136, potassium 4.4, chloride 105, serum bicarb 21, BUN 23, creatinine 0.71, glucose 127. She is currently sitting up in bed, on 2 L/min nasal cannula, in no acute distress. SpO2 is 95%. She does not normally wear home oxygen. She denies any current chest pain or heart palpitations. She has since converted to normal sinus rhythm. Vital signs are stable. Review of Systems REVIEW OF SYSTEMS: CONSTITUTIONAL: Denies any recent significant weight loss or weight gain. Denies fevers. EYES: Denies change in vision. EARS, NOSE, MOUTH, THROAT: Denies headaches, denies sore throat. CARDIOVASCULAR: see HPI RESPIRATORY: See HPI GASTROINTESTINAL: Denies change in appetite, abdominal pain, nausea and vomiting, or diarrhea GENITOURINARY: Denies hematuria, denies infections. MUSKULOSKELETAL: Denies pain, denies swelling. INTEGUMENTARY: Denies rash, denies eczema. NEUROLOGICAL: Denies recent memory loss, no recent seizure activity. PSYCHIATRIC: Denies anxiety, denies depression. 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 Last Myocardial Infarction Date:: 10/2011 History of Any Multi-Drug Resistant Organisms: None Reported Past Surgical History: Appendectomy, Back Surgery, Coronary Bypass/CABG, Heart Catheterization, Hysterectomy, Orthopedic Surgery Additional Past Surgical History / Comment(s): rt knee surgery, chris cataracts, heart cath (05/2013)-pt not sure if any stents, CABG 2011, COLONOSCOPY, Past Anesthesia/Blood Transfusion Reactions: Previous Problems w/ Anesthesia Additional Past Anesthesia/Blood Transfusion Reaction / Comment(s): WENT INTO CARDIAC ARREST IN [facility] AFTER BACK SURGERY 2015. States has never had any problems with anesthesia before. States to her knowledge she does not know why. Past Psychological History: No Psychological Hx Reported Smoking Status: Current every day smoker Past Alcohol Use History: Rare Additional Past Alcohol Use History / Comment(s): SMOKING 1/2 PPD, smoked for > 50 yrs, Past Drug Use History: None Reported - Past Family History Brother(s) Family Medical History: Cancer Medications and Allergies Home Medications Medication Instructions Recorded Confirmed Type Atorvastatin Calcium [Lipitor] 80 mg PO W/SUPPER 12/02/15 06/09/23 History Vit C/E/Zn/Coppr/Lutein/Zeaxan 1 cap PO W/SUPPER 12/02/15 06/09/23 History [Preservision Areds 2 Softgel] Clopidogrel [Plavix] 75 mg PO DAILY 12/05/15 06/09/23 History Aspirin [Adult Low Dose Aspirin EC] 81 mg PO DAILY 01/22/16 06/09/23 History Multivitamins, Thera [Multivitamin 1 tab PO DAILY 01/22/16 06/09/23 History (formulary)] Calcium Carb-Vit D 500Mg-5Mcg 4 tab PO DAILY 03/03/17 06/09/23 History [Oscal 500+D 5 Mcg (200 Iu)] Furosemide [Lasix] 40 mg PO DAILY 03/03/17 06/09/23 History traZODone HCL 300 mg PO HS 03/03/17 06/09/23 History Isosorbide Mononitrate [Isosorbide 30 mg PO DAILY 05/12/18 06/09/23 History Mononitrate ER] HYDROcodone/APAP 10-325MG [[place] 1 tab PO TID 06/09/23 06/09/23 History 10-325] Metoprolol Tartrate [Lopressor] 12.5 mg PO DAILY 06/09/23 06/09/23 History Nitrofurantoin Monohyd/M-Cryst 100 mg PO BID 06/09/23 06/09/23 History [Macrobid] Omeprazole 40 mg PO W/SUPPER 06/09/23 06/09/23 History Tiotropium Br/Olodaterol HCl 1 puff INHALATION RT-DAILY 06/09/23 06/09/23 History [Stiolto Respimat Inhal [place]] Allergies Allergy/AdvReac Type Severity Reaction Status Date / Time latex Allergy Rash/Hives Verified 06/09/23 07:12 Physical Exam Vitals: Vital Signs Temp Pulse Pulse Resp BP BP BP 06/10/23 00:00 97.7 F 58 L 18 94/57 06/09/23 21:06 97.9 F 73 16 107/53 06/09/23 20:00 110 H 19 06/09/23 17:37 97.5 F L 51 L 15 108/54 06/09/23 16:02 48 L 18 109/53 06/09/23 15:40 52 L 18 115/56 112/52 06/09/23 14:56 18 106/50 06/09/23 14:52 48 L 18 112/56 114/52 06/09/23 14:30 52 L 18 06/09/23 14:15 48 L 18 06/09/23 14:00 50 L 18 06/09/23 07:34 98 F 49 L 18 106/48 06/09/23 06:15 48 L 16 103/43 06/09/23 05:42 53 L 17 128/52 06/09/23 04:15 46 L 16 96/38 06/09/23 03:38 49 L 17 99/41 06/09/23 03:17 53 L 16 101/43 06/09/23 02:51 50 L 16 82/38 06/09/23 02:33 45 L 16 73/35 Pulse Ox 06/10/23 00:00 95 06/09/23 21:06 97 06/09/23 20:00 06/09/23 17:37 94 L 06/09/23 16:02 94 L 06/09/23 15:40 94 L 06/09/23 14:56 94 L 06/09/23 14:52 94 L 06/09/23 14:30 95 06/09/23 14:15 94 L 06/09/23 14:00 97 06/09/23 07:34 99 06/09/23 06:15 98 06/09/23 05:42 92 L 06/09/23 04:15 96 06/09/23 03:38 95 06/09/23 03:17 94 L 06/09/23 02:51 94 L 06/09/23 02:33 96 Intake and Output 06/09/23 06/09/23 06/10/23 14:59 22:59 06:59 Intake Total 350 240 Output Total 550 Balance 350 -310 Intake: IV 350 Oral 240 Output: Urine 550 Other: Voiding Method External Catheter # Voids 1 Weight 43.998 kg GENERAL EXAM: Alert, 78-year-old white female, comfortable in no apparent distress. HEAD: Normocephalic and atraumatic EYES: Normal reaction of pupils, equal size. NOSE: Clear with pink turbinates. THROAT: No erythema or exudates. NECK: No masses, no JVD. CHEST: No chest wall deformity. LUNGS: Equal air entry with diminished bibasilar lung sounds. No crackles, wheeze, rhonchi or dullness. On 2 L/min nasal cannula. No conversational d yspnea or accessory muscle use while at rest.. CVS: S1 and S2 normal with grade 2 systolic murmur, regular rhythm. No other extra heart sounds ABDOMEN: No hepatosplenomegaly, active bowel sounds, no guarding or rigidity. SPINE: No scoliosis or deformity SKIN: No rashes CENTRAL NERVOUS SYSTEM: No focal deficits, tone is normal in all 4 extremities. EXTREMITIES: There is no peripheral edema, clubbing, or cyanosis. Peripheral pulses are intact. Results - Laboratory Findings CBC and BMP: 06/08/23 21:24 06/08/23 21:24 PT/INR, D-dimer PT 10.2 sec (10.0-12.5) 06/08/23 21:24 INR 0.9 (<1.2) 06/08/23 21:24 D-Dimer 2.61 mg/L FEU (<0.60) H 06/08/23 21:24 Abnormal lab findings: Abnormal Labs 06/08/23 06/08/23 06/08/23 21:24 21:24 21:24 WBC 15.7 H Neutrophils # 13.5 H Lymphocytes # 0.7 L D-Dimer 2.61 H Sodium 136 L Carbon Dioxide 21 L BUN 23 H Glucose 127 H Plasma Lactic Acid Lennox Troponin I 06/08/23 06/08/23 06/09/23 21:24 21:24 01:39 WBC Neutrophils # Lymphocytes # D-Dimer Sodium Carbon Dioxide BUN Glucose Plasma Lactic Acid [place] 2.6 H* Troponin I 0.068 H* 2.820 H* 06/09/23 03:31 WBC Neutrophils # Lymphocytes # D-Dimer Sodium Carbon Dioxide BUN Glucose Plasma Lactic Acid Lennox Troponin I 4.560 H* - Diagnostic Findings Chest x-ray: image reviewed CT scan - chest: image reviewed Assessment and Plan Assessment: Acute non-ST elevation, status post heart catheterization demonstrating multivessel coronary artery disease with previous bypasses felt to be patent including BENSON to the LAD, SVG to the OM, and SVG to the RCA. There was intermediate disease involving the PLV branch of the RCA. No PCI or stenting was performed. Medical management was recommended. Acute hypoxemic respiratory failure, secondary to suspected exacerbation of congestive heart failure, unknown type. Chest x-ray on arrival has hyperinflation with superimposed pulmonary vascular congestion, interstitial edema, and small bilateral pleural effusions with associated atelectasis consistent with CHF. NT proBNP was elevated at 5720. Chronic obstructive pulmonary disease, does not appear to be in exacerbation. Chest CTA showed no evidence of pulmonary emboli. It did show advanced central lobar emphysematous changes with possible superimposed bronchitis, pneumonitis, and enlarged mediastinal and hilar lymph nodes, possibly reactive. There was redmonstration of the bilateral moderate-sized pleural effusions and associated atelectasis or consolidation. Leukocytosis Chronic ongoing tobacco dependence New onset atrial fibrillation with rapid ventricular rate, converted to normal sinus rhythm, anticoagulated on Eliquis Coronary artery disease, with history of previous CABG History of valvular heart disease with moderate aortic stenosis and aortic regurgitation Hyperlipidemia Hypertension History of TIA/CVA Chronic lower back pain Plan: Patient's medications, labs, imaging were reviewed Continue supplemental oxygen, to maintain oxygen saturation of 92% or greater Agree with diuresis in the form of Lasix 40 mg twice daily. No plans for thoracentesis at this time. Follow-up echocardiogram pending Anticoagulated on Eliquis Start the patient on Symbicort inhaler and as needed DuoNebs. Ordered Cepheid 4 plex Smoking cessation encouraged. We will continue to follow, and further recommendations are forthcoming I have personally seen and examined the patient, performed the documentation and the assessment and plan as written. Number of minutes spent on the visit:20 Time with Patient: Greater than 30
[2023-06-10] MEDS ORDERED: HEPARIN SODIUM,PORCINE (1 ML) 2,500 UNIT in SODIUM CHLORIDE 0.9% 250 ML IRRIGATION PRN (07:00)
[2023-06-10] MEDS ORDERED: HEPARIN SODIUM,PORCINE 10,000 UNIT in SODIUM CHLORIDE 0.9% 1,000 ML IRRIGATION PRN (07:00)
[2023-06-10 09:23] LABS: Basophils % (A) 0 %; Eosinophils # (A) 0.6 k/uL (0-0.7); Eosinophils % (A) 7 %; HCT 35.6 % (34.0-46.0); HGB 11.5 gm/dL (11.4-16.0); Lymphocytes # (A) 1.3 k/uL (1.0-4.8); Lymphocytes % (A) 14 %; MCH 31.3 pg (25.0-35.0); MCHC 32.4 g/dL (31.0-37.0); MCV 96.8 fL (80.0-100.0); Mean Platelet Volume 8.7; Monocytes # (A) 0.4 k/uL (0-1.0); Monocytes % (A) 5 %; Neutrophils # (A) 6.4 k/uL (1.3-7.7); Neutrophils % (A) 72 %; Platelet Count 239 k/uL (150-450); RBC 3.68 m/uL (3.80-5.40); RDW 13.6 % (11.5-15.5); WBC 8.8 k/uL (3.8-10.6)
[2023-06-10] MEDS: SYMBICORT 160-4.5 MCG INHALER INHALATION SCH (09:36)
[2023-06-10 09:54] LABS: African American GFR (CKD) 83 (>60 ml/min/1.73 sqM); Anion Gap 3 mmol/L; Blood Urea Nitrogen 25 mg/dL (7-17); Calcium 8.7 mg/dL (8.4-10.2); Carbon Dioxide 31 mmol/L (22-30); Chloride 102 mmol/L (98-107); Glucose 109 mg/dL (74-99); Non-African American GFR(CKD) 72 (>60 ml/min/1.73 sqM); Potassium 3.8 mmol/L (3.5-5.1); Sodium 136 mmol/L (137-145)
--- NOTE | 2023-06-10 11:12 | CA ---
Transthoracic Echo Report Name: Elenita Monzon Age: 78 Gender: F : 1945 Exam Date: 06/10/2023 08:07 Exam Location: [facility] Ht (in): 64 Wt (lb): 97 Ordering Physician: April Lama Attending/Referring Phys: [id number], Daina Roll Tension Tester Barrington Banuelos RDCS Procedure CPT: Indications: LVF Cardiac Hx: Technical Quality: Fair Contrast 1: Total Dose (mL): Contrast 2: Total Dose (mL): MEASUREMENTS (Male / Female) Normal Values 2D ECHO LV Diastolic Diameter PLAX 4.2 cm 4.2 - 5.9 / 3.9 - 5.3 cm LV Systolic Diameter PLAX 4.1 cm IVS Diastolic Thickness 0.8 cm 0.6 - 1.0 / 0.6 - 0.9 cm LVPW Diastolic Thickness 0.9 cm 0.6 - 1.0 / 0.6 - 0.9 cm LV Relative Wall Thickness 0.4 Aortic Root Diameter 3.1 cm LA Systolic Diameter LX 4.6 cm 3.0 - 4.0 / 2.7 - 3.8 cm DOPPLER AV Peak Velocity 260.2 cm/s AV Peak Gradient 27.1 mmHg AV Mean Velocity 190.5 cm/s AV Mean Gradient 15.9 mmHg AV Velocity Time Integral 53.5 cm AI Peak Velocity 374.5 cm/s AI Peak Gradient 56.1 mmHg AI Pressure Half Time 270.5 ms LVOT Peak Velocity 62.4 cm/s LVOT Peak Gradient 1.6 mmHg LVOT Velocity Time Integral 15.0 cm Mitral E Point Velocity 110.1 cm/s Mitral A Point Velocity 90.7 cm/s Mitral E to A Ratio 1.2 MV Deceleration Time 175.5 ms MV E' Velocity 9.1 cm/s Mitral E to MV E' Ratio 12.1 TR Peak Velocity 219.6 cm/s TR Peak Gradient 19.3 mmHg PV Peak Velocity 60.3 cm/s PV Peak Gradient 1.5 mmHg FINDINGS Left Ventricle Left ventricular ejection fraction is estimated at 50-55%. Right Ventricle Right ventricle not well visualized. Right Atrium Right atrium not well visualized. Left Atrium Moderately increased left atrial diameter. Mitral Valve Mild mitral regurgitation. Aortic Valve Moderate aortic regurgitation. Aortic stenosis with a peak gradient of 27 mmHg and a mean gradient of 16 mmHg. Tricuspid Valve Mild tricuspid regurgitation. Pulmonic Valve Pulmonic valve not well visualized. Pericardium Normal pericardium. Aorta Aortic root and proximal ascending aorta not well visualized. CONCLUSIONS Left ventricular ejection fraction 5055% Moderately dilated left atrium Mild mitral regurgitation Mild aortic stenosis Moderate aortic regurgitation Mild tricuspid regurgitation Previewed by: Dr. Carloz Vaughn DO (Electronically Signed) Final Date: 10 June 2023 11:11
--- NOTE | 2023-06-10 12:54 | P.PN ---
Subjective Progress Note Date: 06/10/23 Consult reason: atrial fibrillation, congestive heart failure History of present illness: History of present illness: This is a 78-year-old female patient of Dr. Cespedes with past medical history of coronary artery disease status post CABG with BENSON to LAD and SVG to diagonal SVG to OM and SVG to PDA, lower extremity PAD, hypertension, dyslipidemia, carot id atherosclerosis, valvular heart disease with aortic stenosis and regurgitation. We have been asked to evaluate the patient for new onset atrial fibrillation and congestive heart failure. Patient states that she came into the hospital because of shortness of breath and her heart was racing and she felt palpitations. She feels better at the time of this evaluation. Patient has been started on a Cardizem bolus of 5 mg followed by oral Cardizem and heparin drip. Patient also started on IV Lasix 40 mg every 12 hours. EKG #1 atrial fibrillation with ventricular rate of 158 bpm, #2 sinus bra dycardia at 58 bpm left bundle branch block Chest x-ray: COPD with superimposed heart failure and pulm vascular congestion. Small bilateral pleural effusions with adjacent atelectasis and/or consolid ation. CTA of the chest revealed no evidence of pulmonary embolism. Advanced centrilobular emphysematous changes with bronchitis, pneumonitis and bilateral lower lobe consolidations with moderate pleural effusions. Enlarged mediastinal and hilar lymph nodes. WBC 15.7, hemoglobin 13.8, platelet count 212. INR 0.9. D-dimer 2.61. Sodium 136, potassium 4.4, BUN 23 and creatinine 0.71. Lactic acid initially 2 point 6 repeat at 0.9. Liver function tests are within normal limits. Troponin 0.068, 2.82, 4.56. proBNP 5720. Home cardiac medications: Aspirin 81 mg daily, atorvastatin 80 mg with supper, Plavix 75 mg daily, Lasix 40 mg daily, Imdur 30 mg daily, Lopressor 12.5 mg daily. Most recent echocardiogram performed in the office on 08/25/2022 revealed EF of 50 to 55%, borderline concentric left hypertrophy. Trileaflet aortic valve with moderate to severe aortic regurgitation. Aortic valve is thickened and calcified. Mild mitral regurgitation. Moderate tricuspid regurgitation. Norm al pulmonary artery systolic pressure. 30-day event monitor 06/24/2021: #1 sinus rhythm with evidence of intraventricular conduction delay. #2 APCs with brief runs of SVT/sinus tachycardia with heart r ate 130. #3 sinus bradycardia with first-degree heart block. #4 no evidence of any definite episodes of atrial fibrillation or ventricular tachycardia. No symptoms noted. 06/10 Yesterday, patient underwent cardiac catheterization with Dr. Cespedes which revealed severe triple-vessel coronary artery disease. Patent BENSON to LAD. Patent SVG to OM. Patent SVG to RCA with intermediate disease involving the PLV branch of the RCA. Normal left-sided filling pressures and only mild gradient across aortic valve. Recommendations for medical management. Patient denies any new concerns today. No chest pain or shortness of breath. EKG repeated this morning has been reviewed. Echocardiogram reveals EF of 50 to 55%. Moderately dilated left atrium. Mild mitral regurgitation. Mild aortic stenosis. Moderate aortic regurgitation. Mild tricuspid regurgitation. Physical examination: Gen: This is a 78-year-old female appears to be in no acute distress. VS: reviewed HEENT: Head is atraumatic, normocephalic. Pupils equal, round. Sclerae is anicteric. NECK: Supple. No JVD. LUNGS: Clear to auscultation. No wheezes or rhonchi. No intercostal retractions. HEART: Regular rate and rhythm. Systolic murmur at the apex. ABDOMEN: Soft No tenderness. EXTREMITIES: No pedal edema. No calf tenderness. NEUROLOGICAL: Patient is awake, alert and oriented x3. Assessment: Non-ST elevated myocardial infarction status post cardiac catheterization as above New onset paroxysmal atrial fibrillation with RVR, converted to sinus rhythm Leukocytosis History of coronary artery disease with previous CABG with BENSON to LAD, SVG to diagonal, SVG to OM, SVG to PDA Lower extremity PAD Hypertension Dyslipidemia Carotid atherosclerosis Valvular heart disease with aortic stenosis and regurgitation Moderate pleural effusions on CT Enlarged mediastinal and hilar lymph nodes on CT Plan: Continue current cardiac medications Patient is cleared for discharge from cardiology. Patient will follow-up with Dr. Cespedes in 1 week. Nurse practitioner note has been reviewed, I agree with documented findings and plan of care. Patient was seen and examined. Objective - Vital Signs Vital signs: Vital Signs Temp 97.6 F 06/10/23 07:30 Pulse 96 06/10/23 09:48 Resp 26 H 06/10/23 09:48 BP 138/77 02/15/24 07:30 Pulse Ox 93 L 06/10/23 09:33 FiO2 Intake & Output 06/09/23 06/10/23 06/10/23 18:59 06:59 18:59 Intake Total 350 240 Output Total 550 Balance 350 -310 Weight 43.998 kg 36.5 kg Intake: IV 350 Oral 240 Output: Urine 550 Other: Voiding Method External Catheter Toilet # Voids 1 1 - Labs CBC & Chem 7: 06/10/23 08:38 06/10/23 08:38 Labs: Abnormal Lab Results - Last 24 Hours (Table) 06/10/23 06/10/23 Range/Units 08:38 08:38 RBC 3.68 L (3.80-5.40) m/uL Sodium 136 L (137-145) mmol/L Carbon Dioxide 31 H (22-30) mmol/L BUN 25 H (7-17) mg/dL Glucose 109 H (74-99) mg/dL
[2023-06-10 13:29] VITALS: BMI 13.8
--- NOTE | 2023-06-10 14:16 | P.DS ---
Providers Date of admission: 06/09/23 00:49 Expected date of discharge: 06/10/23 Attending physician: Maxx Crowe MD Consults: 06/09/23 00:47 Consult Physician Routine Consulting Provider: Chuy Cespedes Consult Reason/Comments: Onset atrial fibrillation. Congestive heart failure Do you want consulting provider notified?: Yes 06/09/23 14:03 Consult Physician Routine Consulting Provider: Tari Cross Consult Reason/Comments: Moderate pleural effusions, enlarged mediastinal and hilar lymph nodes-CTA Do you want consulting provider notified?: Yes Primary care physician: Glendy Barros [facility] Course: Final Diagnoses: Acute Non-STEMI New onset paroxysmal atrial fibrillation with RVR, converted to sinus rhythm Acute CHF exacerbation, diastolic dysfunction, EF 50 to 55% Enlarged mediastinal and hilar lymph nodes reported per CTA Moderate pleural effusions reported per CTA Leukocytosis Lactic acidosis, resolved CAD, history of PR, CABG Mild aortic stenosis Moderate aortic regurgitation Carotid arteriosclerosis PAD History of CVA Gastroesophageal reflux disease Ongoing nicotine dependence, 1/2 pack/day x 50 years Transverse colon biopsy reported sessile serrated adenoma 06/11/2022 , further follow-up outpatient with follow-up endoscopy as advised per general surgery. Hypertension Hyperlipidemia History of right thyroid nodule, monitoring outpatient with PCP Hospital course: This is a pleasant 78-year-old female, hard of hearing, with past medical history significant for CAD, CABG, aortic stenosis and aortic regurgitation, hypertension, hyperlipidemia, carotid athsclerosis, PAD, ongoing nicotine dependence, tubular adenoma transverse colon, tubular adenoma ascending colon, internal hemorrhoids per colonoscopy with Dr. Flowers, transverse colon biopsy reported sessile serrated adenoma 06/11/2022 and multiple other medical issues , presented to the ER with complaints of worsening dyspnea, palpitations and chest pain. Reports increased shortness of breath with occasional nonproductive cough x 2 days, followed up with PCP, attempted a new inhaler without improvement. Last night developed palpitations,chest pain with diaphoresis, proceeded to the ER. D-dimer 2.61 .chest CTA reported negative for PE, moderate bilateral pleural effusions, enlarged mediastinal and hilar lymph nodes. EKG reported atrial fibrillation with RVR, second EKG reported sinus bradycardia with left bundle branch block. Troponin 0.068, 2.82, 4.56. proBNP 5720. Heparin and Cardizem drips initiated along with scheduled Lasix IV push. Patient converted to sinus rhythm. Afebrile, WBC 15.7, hemoglobin 13.8, platelets 212, INR 0.9. Sodium 136, potassium 4.4, bicarb 21, BUN 23, creatinine 0.71, glucose 127, lactic acid 2.6 currently down to 0.9. Underwent cardiac catheterization yesterday reporting severe triple-vessel disease, patent BENSON to the LAD, patent saphenous vein graft to OM, patent saphenous vein graft to RCA with intermediate disease involving the PLV branch of the RCA. Normal left-sided filling pressures with mild gradient across aortic valve; recommended medical management. Echo reported EF of 50 to 55%, mild aortic stenosis, moderate aortic regurgitation. Denies chest pain, palpitations or shortness of breath. Reports she ambulated in the doty with her walker. Patient reports she has" bad balance all the time "PT consult has been initiated. Patient currently grieving as her brother just and is scheduled for tomorrow. Evaluated by pulmonary with recommendations noted. Maintaining O2 sats of 91% on 2 L nasal cannula, 88% on room air after ambulation. Patient will require 2 L nasal cannula O2 at discharge. Patient has been cleared by cardiology for discharge. Patient will be discharged home today in a stable condition with guarded prognosis pending PT evaluation recommendations, final DC recommendations and clearance per pulmonary. The impression and plan of care has been dictated as directed. : I performed a history and examination of this patient, discussed the same with the dictator. I agree with the dictator's note ,documented as a scribe. Any additional findings or plans will be noted. Patient Condition at Discharge: Stable Plan - Discharge Summary Discharge Rx Participant: No New Discharge Prescriptions: New Nitroglycerin Sl Tabs [Nitrostat] 0.4 mg SUBLINGUAL Q5M PRN #25 tab PRN Reason: Chest Pain Budesonide-Formot 160-4.5 Mcg [Symbicort 160-4.5 Mcg Inhaler] 2 puff INHALATION RT-BID #1 each Apixaban [Eliquis] 5 mg PO BID #180 tab Pantoprazole Sodium [Protonix] 40 mg PO DAILY #30 tab Continue Vit C/E/Zn/Coppr/Lutein/Zeaxan [Preservision Areds 2 Softgel] 1 cap PO W/SUPPER Atorvastatin Calcium [Lipitor] 80 mg PO W/SUPPER Clopidogrel [Plavix] 75 mg PO DAILY Multivitamins, Thera [Multivitamin (formulary)] 1 tab PO DAILY traZODone HCL 300 mg PO HS Furosemide [Lasix] 40 mg PO DAILY Calcium Carb-Vit D 500Mg-5Mcg [Oscal 500+D 5 Mcg (200 Iu)] 4 tab PO DAILY Isosorbide Mononitrate [Isosorbide Mononitrate ER] 30 mg PO DAILY Nitrofurantoin Monohyd/M-Cryst [Macrobid] 100 mg PO BID HYDROcodone/APAP 10-325MG [[place] 10-325] 1 tab PO TID Omeprazole 40 mg PO W/SUPPER Metoprolol Tartrate [Lopressor] 12.5 mg PO DAILY Tiotropium Br/Olodaterol HCl [Stiolto Respimat Inhal Almen[place]] 1 puff INHALATION RT-DAILY Discontinued Aspirin [Adult Low Dose Aspirin EC] 81 mg PO DAILY Discharge Medication List Atorvastatin Calcium [Lipitor] 80 mg PO W/SUPPER 12/02/15 [History] Vit C/E/Zn/Coppr/Lutein/Zeaxan [Preservision Areds 2 Softgel] 1 cap PO W/SUPPER 12/02/15 [History] Clopidogrel [Plavix] 75 mg PO DAILY 12/05/15 [History] Multivitamins, Thera [Multivitamin (formulary)] 1 tab PO DAILY 01/22/16 [Histor y] Calcium Carb-Vit D 500Mg-5Mcg [Oscal 500+D 5 Mcg (200 Iu)] 4 tab PO DAILY 03/03/17 [History] Furosemide [Lasix] 40 mg PO DAILY 03/03/17 [History] traZODone HCL 300 mg PO HS 03/03/17 [History] Isosorbide Mononitrate [Isosorbide Mononitrate ER] 30 mg PO DAILY 05/12/18 [History] HYDROcodone/APAP 10-325MG [[place] 10-325] 1 tab PO TID 06/09/23 [History] Metoprolol Tartrate [Lopressor] 12.5 mg PO DAILY 06/09/23 [History] Nitrofurantoin Monohyd/M-Cryst [Macrobid] 100 mg PO BID 06/09/23 [History] Omeprazole 40 mg PO W/SUPPER 06/09/23 [History] Tiotropium Br/Olodaterol HCl [Stiolto Respimat Inhal [place]] 1 puff INHALATION RT-DAILY 06/09/23 [History] Apixaban [Eliquis] 5 mg PO BID #180 tab 06/10/23 [Rx] Budesonide-Formot 160-4.5 Mcg [Symbicort 160-4.5 Mcg Inhaler] 2 puff INHALATION RT-BID #1 each 06/10/23 [Rx] Nitroglycerin Sl Tabs [Nitrostat] 0.4 mg SUBLINGUAL Q5M PRN #25 tab 06/10/23 [Rx] Pantoprazole Sodium [Protonix] 40 mg PO DAILY #30 tab 06/10/23 [Rx] Follow up Appointment(s)/Referral(s): Maxx Crowe MD [STAFF PHYSICIAN] - 3 Days Chuy Cespedes MD [STAFF PHYSICIAN] - 1 Week Tari Cross MD [STAFF PHYSICIAN] - 2 Weeks
--- NOTE | 2023-06-11 10:36 | CDI ---
Documentation Clarification Form Date: 06/11/2023 10:29:25 AM From: Viridiana Ortiz RN, CCDS Phone: [phone] Admit Date: 06/09/2023 12:49:00 AM Patient Name: Elenita Monzon Visit Number: [id number] Discharge Date: ATTENTION: The Clinical Documentation Specialists (CDI) and [facility] Coding Staff appreciate your assistance in clarifying documentation. Please respond to the clarification below the line at the bottom and electronically sign. The CDI & [facility] Coding staff will review the response and follow-up if needed. Please note: Queries are made part of the Legal Health Record. If you have any questions, please contact the author of this message via ITS. Dr. Maxx Crowe The Registered Dietitian assessment on 06/10/23 diagnosis indicate the patient is underweight. Based on this information and the findings below, is there an additional diagnosis that is clinically appropriate for this patient? History/Risk Factors: Hyperlipidemia, HTN, CABG, CVA, TIA Clinical Indicators: 78-year-old woman female present with dyspnea, new onset atrial fibrillation, ruled in for Acute Non-STEMI. ED general appearance: alert, in distress, cachectic She has right side weakness, Current every day smoker, Current BMI: 13.8 RD Consult Assessment: underweight High energy expenditure, weight gain failure BMI <23 kg/m2 for person older than 65 years Treatment: General/healthful diet commercial beverage Enlive TID Increasing calories/protein for weight gain Is there an additional diagnosis that is clinically appropriate for this patient? [ X ] Mild Protein-Calorie Malnutrition [ ] Moderate Protein-Calorie Malnutrition [ ] Severe Protein-Calorie Malnutrition [ ] No additional diagnosis/Not clinically significant [ ] Other condition, please specify [ ] Unable to Determine (Template Last Revised: October 2022) MTDD
--- NOTE | 2023-06-11 11:23 | P.PN ---
Subjective Progress Note Date: 06/11/23 Consult reason: atrial fibrillation, congestive heart failure History of present illness: History of present illness: This is a 78-year-old female patient of Dr. Cespedes with past medical history of coronary artery disease status post CABG with BENSON to LAD and SVG to diagonal SVG to OM and SVG to PDA, lower extremity PAD, hypertension, dyslipidemia, carot id atherosclerosis, valvular heart disease with aortic stenosis and regurgitation. We have been asked to evaluate the patient for new onset atrial fibrillation and congestive heart failure. Patient states that she came into the hospital because of shortness of breath and her heart was racing and she felt palpitations. She feels better at the time of this evaluation. Patient has been started on a Cardizem bolus of 5 mg followed by oral Cardizem and heparin drip. Patient also started on IV Lasix 40 mg every 12 hours. EKG #1 atrial fibrillation with ventricular rate of 158 bpm, #2 sinus bra dycardia at 58 bpm left bundle branch block Chest x-ray: COPD with superimposed heart failure and pulm vascular congestion. Small bilateral pleural effusions with adjacent atelectasis and/or consolid ation. CTA of the chest revealed no evidence of pulmonary embolism. Advanced centrilobular emphysematous changes with bronchitis, pneumonitis and bilateral lower lobe consolidations with moderate pleural effusions. Enlarged mediastinal and hilar lymph nodes. WBC 15.7, hemoglobin 13.8, platelet count 212. INR 0.9. D-dimer 2.61. Sodium 136, potassium 4.4, BUN 23 and creatinine 0.71. Lactic acid initially 2 point 6 repeat at 0.9. Liver function tests are within normal limits. Troponin 0.068, 2.82, 4.56. proBNP 5720. Home cardiac medications: Aspirin 81 mg daily, atorvastatin 80 mg with supper, Plavix 75 mg daily, Lasix 40 mg daily, Imdur 30 mg daily, Lopressor 12.5 mg daily. Most recent echocardiogram performed in the office on 08/25/2022 revealed EF of 50 to 55%, borderline concentric left hypertrophy. Trileaflet aortic valve with moderate to severe aortic regurgitation. Aortic valve is thickened and calcified. Mild mitral regurgitation. Moderate tricuspid regurgitation. Norm al pulmonary artery systolic pressure. 30-day event monitor 06/24/2021: #1 sinus rhythm with evidence of intraventricular conduction delay. #2 APCs with brief runs of SVT/sinus tachycardia with heart r ate 130. #3 sinus bradycardia with first-degree heart block. #4 no evidence of any definite episodes of atrial fibrillation or ventricular tachycardia. No symptoms noted. 06/10 Yesterday, patient underwent cardiac catheterization with Dr. Cespedes which revealed severe triple-vessel coronary artery disease. Patent BENSON to LAD. Patent SVG to OM. Patent SVG to RCA with intermediate disease involving the PLV branch of the RCA. Normal left-sided filling pressures and only mild gradient across aortic valve. Recommendations for medical management. Patient denies any new concerns today. No chest pain or shortness of breath. EKG repeated this morning has been reviewed. Echocardiogram reveals EF of 50 to 55%. Moderately dilated left atrium. Mild mitral regurgitation. Mild aortic stenosis. Moderate aortic regurgitation. Mild tricuspid regurgitation. 06/11 Patient states that her discharge was delayed because she is going to rehab tomorrow. She still complains of some shortness of breath but no chest pain. Heart rate is 75, blood pressure 98/56. No repeat labs for today. Physical examination: Gen: This is a 78-year-old female appears to be in no acute distress. VS: reviewed HEENT: Head is atraumatic, normocephalic. Pupils equal, round. Sclerae is anicteric. LUNGS: Clear to auscultation. No wheezes or rhonchi. No intercostal retractions. HEART: Regular rate and rhythm. Systolic murmur at the apex. ABDOMEN: Soft No tenderness. EXTREMITIES: No pedal edema. No calf tenderness. NEUROLOGICAL: Patient is awake, alert and oriented x3. Assessment: Non-ST elevated myocardial infarction status post cardiac catheterization as above New onset paroxysmal atrial fibrillation with RVR, converted to sinus rhythm Leukocytosis History of coronary artery disease with previous CABG with BENSON to LAD, SVG to diagonal, SVG to OM, SVG to PDA Lower extremity PAD Hypertension Dyslipidemia Carotid atherosclerosis Valvular heart disease with aortic stenosis and regurgitation Moderate pleural effusions on CT Enlarged mediastinal and hilar lymph nodes on CT Plan: Continue current cardiac medications Patient is cleared for discharge from cardiology. Patient will follow-up with Dr. Cespedes in 1 week. Nurse practitioner note has been reviewed, I agree with documented findings and plan of care. Patient was seen and examined. Objective - Vital Signs Vital signs: Vital Signs Temp 97.9 F 02/16/24 08:00 Pulse 75 06/11/23 08:00 Resp 18 06/11/23 08:00 BP 121/76 06/11/23 08:00 Pulse Ox 93 L 06/11/23 09:39 FiO2 Intake & Output 06/10/23 06/11/23 06/11/23 18:59 06:59 18:59 Intake Total 354 120 Output Total 3 Balance 354 117 Weight 36.5 kg Intake: Oral 354 120 Output: Urine 3 Other: Voiding Method Toilet Toilet Toilet # Voids 1 1 - Labs CBC & Chem 7: 06/10/23 08:38 06/10/23 08:38
[2023-06-11] MEDS: polyethylene glycoL 3350 17 GM POWD.PACK PO STA (12:27)
--- NOTE | 2023-06-11 13:32 | P.PN ---
Subjective Progress Note Date: 06/11/23 Principal diagnosis: Acute non-ST elevation myocardial infarction and bilateral pleural effusions secondary to acute diastolic congestive heart failure Patient is a 78-year-old white female with past medical history significant for coronary artery disease with previous CABG, aortic stenosis and regurgitation, hypertension, hyperlipidemia, TIA/CVA, PAD, chronic ongoing tobacco dependence, COPD, among other things. Her primary care provider is a ANDRA Aly. Patient has been experiencing ongoing worsening shortness of breath and occasional heart palpitations that started on Wednesday. No episodes of syncope. on June 08, she started to have substernal chest tightness while at rest, this started around 1930, she presented to the emergency room approximately 2 hours later. She was found to be in atrial fibrillation with rapid ventricular response. She was started on Cardizem infusion per cardiology recommendation. She had elevated troponins and she was taken to the [facility] yesterday. Previous bypasses were felt to be patent including BENSON to the LAD, SVG to the OM, and SVG to RCA. She did have intermediate disease involving the PLV branch of the RCA. No PCI or stenting was performed. Chest x-ray on arrival showed hyperinflation with superimposed pulmonary vascular congestion, interstitial edema, and small bilateral pleural effusions and associated atelectasis consistent with CHF. NT proBNP was elevated at 5720. Patient was started on Lasix 40 mg twice daily. We were consulted for the bilateral pleural effusions and CTA findings. She did have an elevated D-dimer on this admission, and a follow-up chest CTA showed no evidence of pulmonary emboli. It did show advanced central lobar emphysematous changes with possible bronchitis, pneumonitis and bilateral lobe consolidation with moderate pleural effusions. There is enlarged mediastinal and hilar lymphadenopathy. Patient herself denies any infectious symptoms other than a dry nonproductive cough. She does have COPD and heavy smoking history. She continues to smoke approximately 6 cigarettes per day. The dry cough has been ongoing since starting a new inhaler, Stiolto, which was given to her by her PCP. She attributes her symptoms to this new medication. In the past, she has not tolerated Trelegy inhaler due to reported heart palpitations and arrhythmias. She denies any infectious symptoms such as fever, chills, myalgias, sputum production or hemoptysis. She is currently afebrile. CBC from admission: WC count of 15.7, hemoglobin 13.8, hematocrit 43.5, platelets 212. BMP on admission: Sodium 136, potassium 4.4, chloride 105, serum bicarb 21, BUN 23, creatinine 0.71, glucose 127. She is currently sitting up in bed, on 2 L/min nasal cannula, in no acute distress. SpO2 is 95%. She does not normally wear home oxygen. She denies any current chest pain or heart palpitations. She has since converted to normal sinus rhythm. Vital signs are stable. Reevaluate today on 06/11/2023, patient is doing great, asymptomatic, hardly any pulmonary symptoms no cough no wheezing no shortness of breath. Patient was seen by cardiology for her congestive heart failure and she was placed on Lasix 40 mg p.o. twice daily. For her underlying COPD the patient is placed on DuoNeb updrafts and she is also on Symbicort. Doing great, relatively asymptomatic, being considered for possible discharge planning either today or tomorrow patient is supposed to go [facility] a nursing homeCBC is normal electrolytes are normal renal profile is normal her troponins were elevated on admission and her last troponin was 4.5 yesterday Objective - Vital Signs Vital signs: Vital Signs Temp 97.9 F 06/11/23 08:00 Pulse 75 06/11/23 08:00 Resp 18 06/11/23 08:00 BP 121/76 06/11/23 08:00 Pulse Ox 93 L 06/11/23 09:39 FiO2 Intake & Output 06/10/23 06/11/23 06/11/23 18:59 06:59 18:59 Intake Total 354 120 Output Total 3 Balance 354 117 Weight 36.5 kg Intake: Oral 354 120 Output: Urine 3 Other: Voiding Method Toilet Toilet Toilet # Voids 1 1 - Exam GENERAL EXAM: Alert, 78-year-old white female, comfortable in no apparent distress. HEAD: Normocephalic and atraumatic EYES: Normal reaction of pupils, equal size. NOSE: Clear with pink turbinates. THROAT: No erythema or exudates. NECK: No masses, no JVD. CHEST: No chest wall deformity. LUNGS: Clear bilaterally no crackles rhonchi or wheezes CVS: S1 and S2 normal with grade 2 systolic murmur, regular rhythm. No other extra heart sounds ABDOMEN: No hepatosplenomegaly, active bowel sounds, no guarding or rigidity. SKIN: No rashes CENTRAL NERVOUS SYSTEM: No focal deficits, tone is normal in all 4 extremities. EXTREMITIES: There is no peripheral edema, clubbing, or cyanosis. Peripheral pulses are intact. - Labs CBC & Chem 7: 06/10/23 08:38 02 08:38 Assessment and Plan Assessment: Impression: Acute non-ST elevation myocardial infarction Acute diastolic congestive heart failure New onset atrial fibrillation with RVR. Underlying coronary artery disease History of valvular heart disease including moderate aortic stenosis and aortic regurgitation Benign essential hypertension Nonspecific mediastinal and hilar lymph nodes needs outpatient follow-up and possibly repeat CT of the chest in the next 4 months Recommendation: Continue present treatment plan as per cardiology on the case. No need for thoracentesis, Continue medical therapy Continue bronchodilators Follow-up with me on outpatient basis in few weeks postdischarge. Again for her lymphadenopathy I would recommend repeat CT of the chest in 3 to 4 months. Time with Patient: Less than 30
--- NOTE | 2023-06-11 16:21 | P.PN ---
Subjective Progress Note Date: 06/11/23 This is a pleasant 78-year-old female, hard of hearing, with past medical history significant for CAD, CABG, aortic stenosis and aortic regurgitation, hypertension, hyperlipidemia, carotid athsclerosis, PAD, ongoing nicotine dependence, tubular adenoma transverse colon, tubular adenoma ascending colon, internal hemorrhoids per colonoscopy with Dr. Flowers, transverse colon biopsy reported sessile serrated adenoma 06/11/2022 and multiple other medical issues , presented to the ER with complaints of worsening dyspnea, palpitations and chest pain. Reports increased shortness of breath with occasional nonproductive cough x 2 days, followed up with PCP, attempted a new inhaler without improvement. Las t night developed palpitations,chest pain with diaphoresis, proceeded to the ER. D-dimer 2.61 .chest CTA reported negative for PE, moderate bilateral pleural effusions, enlarged mediastinal and hilar lymph nodes. EKG reported atrial fibrillation with RVR, second EKG reported sinus bradycardia with left bundle branch block. Troponin 0.068, 2.82, 4.56. proBNP 5720. Heparin and Cardizem drips initiated along with scheduled Lasix IV push. Patient converted to sinus rhythm. Afebrile, WBC 15.7, hemoglobin 13.8, platelets 212, INR 0.9. Sodium 136, potassium 4.4, bicarb 21, BUN 23, creatinine 0.71, glucose 127, lactic acid 2.6 currently down to 0.9. Underwent cardiac catheterization yesterday reporting severe triple-vessel disease, patent BENSON to the LAD, patent saphenous vein graft to OM, patent saphenous vein graft to RCA with intermediate disease involving the PLV branch of the RCA. Normal left-sided filling pressures with mild gradient across aortic valve; recommended medical management. Echo reported EF of 50 to 55%, mild aortic stenosis, moderate aortic regurgitation. Denies chest pain, palpitations or shortness of breath. Reports she ambulated in the doty with her walker. Patient reports she has" bad balance all the time "PT consult has been initiated. Patient currently grieving as her brother just and is scheduled for tomorrow. Evaluated by pulmonary with recommendations noted. No need for thoracentesis. maintaining O2 sats of 91% on 2 L nasal cannula, 88% on room air after ambulation. Patient will require 2 L nasal cannula O2 at discharge. Patient has been cleared by cardiology for discharge. Patient will be discharged home today in a stable condition with guarded prognosis pending PT evaluation recommendations, final DC recommendations and clearance per pulmonary. 06/11/2023 discharge held yesterday as PT recommending subacute rehab recommended, patient consented. Scheduled for subacute rehab. Tomorrow denies chest pain, palpitations or increased shortness of breath. Complains of no bowel movement since admission, MiraLAX ordered and senokot- s. Cleared by both pulmonary and cardiology for discharge. Objective - Vital Signs Vital signs: Vital Signs Temp 97.9 F 06/11/23 08:00 Pulse 75 06/11/23 08:00 Resp 18 06/11/23 08:00 BP 121/76 06/11/23 08:00 Pulse Ox 93 L 06/11/23 09:39 FiO2 Intake & Output 06/10/23 06/11/23 06/11/23 18:59 06:59 18:59 Intake Total 354 120 Balance 354 120 Weight 36.5 kg Intake: Oral 354 120 Other: Voiding Method Toilet Toilet # Voids 1 1 - Exam PHYSICAL EXAM: VITAL SIGNS: [As above] GENERAL: Hard of hearing, alert and oriented x 3, sitting up in bed, no acute distress HEENT: Normocephalic, atraumatic conjunctivae normal. eyes normal. NECK: Supple, no JVD. CARDIOVASCULAR: S1, S2 regular. Systolic murmur RESPIRATION: Unlabored, CTA, breath sounds diminished in the bases. ABDOMEN: Soft, nontender . No guarding. no masses palpable. Positive bowel sounds. LEGS: No edema. no swelling NERVOUS SYSTEM: Cranial N 2-12 grossly normal. No focal deficits. Strength and sensation grossly intact. Skin: Warm and dry, no rash - Labs CBC & Chem 7: 06/10/23 08:38 06/10/23 08:38 Labs: Abnormal Lab Results - Last 24 Hours (Table) 06/10/23 Range/Units 08:38 Sodium 136 L (137-145) mmol/L Carbon Dioxide 31 H (22-30) mmol/L BUN 25 H (7-17) mg/dL Glucose 109 H (74-99) mg/dL Assessment and Plan Assessment: Acute Non-STEMI status postcardiac catheterization, triple-vessel disease, medical management recommended New onset paroxysmal atrial fibrillation with RVR, converted to sinus rhythm Acute CHF exacerbation, diastolic dysfunction, echo pending Enlarged mediastinal and hilar lymph nodes reported per CTA, requires further follow-up outpatient and possible repeat chest CT in 4 months Moderate pleural effusions reported per CTA Leukocytosis, resolved Lactic acidosis, resolved CAD, history of MA, CABG Moderate aortic stenosis Moderate aortic regurgitation Carotid arterial sclerosis PAD History of CVA Gastroesophageal reflux disease Ongoing nicotine dependence, 1/2 pack/day x 50 years Transverse colon biopsy reported sessile serrated adenoma 06/11/2022 , further follow-up outpatient with follow-up endoscopy as advised per general surgery. Hypertension Hyperlipidemia History of right thyroid nodule, monitoring outpatient with PCP Plan: Continue on current medication regimen ,monitoring and symptomatic treatment. Continue on current diuretics, antiarrhythmics as per cardiology. Aggressive pulmonary toileting, maintain nebulized bronchodilators, Symbicort. Discharge planning in progress for subacute rehab. scheduled for tomorrow. The impression and plan of care has been dictated as directed. : I performed a history and examination of this patient, discussed the same with the dictator. I agree with the dictator's note ,documented as a scribe. Any additional findings or plans will be noted.
[2023-06-11] MEDS: FUROSEMIDE 40 MG TAB PO SCH (17:55)
[2023-06-11] MEDS: SENNOSIDES-DOCUSATE SODIUM 1 EACH TAB PO SCH (21:32)
[2023-06-12 08:00] VITALS: TEMP 97.8
[2023-06-12] MEDS ORDERED: NON FORMULARY DRUG (Tiotropium Br/Olodaterol Hcl [Stiolto Respimat Inhal Spray] 4 GM Each) INHALATION SCH (08:00)
--- NOTE | 2023-06-12 09:33 | P.PN ---
Subjective HISTORY OF PRESENT ILLNESS: his is a 78-year-old female patient of Dr. Cespedes with past medical history of coronary artery disease status post CABG with BENSON to LAD and SVG to diagonal SVG to OM and SVG to PDA, lower extremity PAD, hypertension, dyslipidemia, carotid atherosclerosis, valvular heart disease with aortic stenosis and regurgitation. We have been asked to evaluate the patient for new onset atrial fibrillation and congestive heart failure. Patient states that she came into the hospital because of shortness of breath and her heart was racing and she felt palpitations. She feels better at the time of this evaluation. Patient adugherty s been started on a Cardizem bolus of 5 mg followed by oral Cardizem and heparin drip. Patient also started on IV Lasix 40 mg every 12 hours. EKG #1 atrial fibrillation with ventricular rate of 158 bpm, #2 sinus bradycardia at 58 bpm left bundle branch block Chest x-ray: COPD with superimposed heart failure and pulm vascular congestion. Small bilateral pleural effusions with adjacent atelectasis and/or consolidation. CTA of the chest revealed no evidence of pulmonary embolism. Advanced centr ilobular emphysematous changes with bronchitis, pneumonitis and bilateral lower lobe consolidations with moderate pleural effusions. Enlarged mediastinal and hilar lymph nodes. WBC 15.7, hemoglobin 13.8, platelet count 212. INR 0.9. D-dimer 2.61. Sodium 136, potassium 4.4, BUN 23 and creatinine 0.71. Lactic acid initially 2 point 6 repeat at 0.9. Liver function tests are within normal limits. Troponin 0.068, 2.82, 4.56. proBNP 5720. Home cardiac medications: Aspirin 81 mg daily, atorvastatin 80 mg with supper, Plavix 75 mg daily, Lasix 40 mg daily, Imdur 30 mg daily, Lopressor 12.5 mg daily. Most recent echocardiogram performed in the office on 08/25/2022 revealed EF of 50 to 55%, borderline concentric left hypertrophy. Trileaflet aortic valve with moderate to severe aortic regurgitation. Aortic valve is thickened and calcified. Mild mitral regurgitation. Moderate tricuspid regurgitation. Normal pulmonary artery systolic pressure. 30-day event monitor 06/24/2021: #1 sinus rhythm with evidence of intraventricular conduction delay. #2 APCs with brief runs of SVT/sinus tachycardia with heart rate 130. #3 sinus bradycardia with first-degree heart block. #4 no evidence of any definite episodes of atrial fibrillation or ventricular tachycardia. No symptoms noted. 06/10 Yesterday, patient underwent cardiac catheterization with Dr. Cespedes which revealed severe triple-vessel coronary artery disease. Patent BENSON to LAD. Patent SVG to OM. Patent SVG to RCA with intermediate disease involving the PLV branch of the RCA. Normal left-sided filling pressures and only mild gradient across aortic valve. Recommendations for medical management. Patient denies any new concerns today. No chest pain or shortness of breath. EKG repeated this morning has been reviewed. Echocardiogram reveals EF of 50 to 55%. Moderately dilated left atrium. Mild mitral regurgitation. Mild aortic stenosis. Moderate aortic regurgitation. Mild tricuspid regurgitation. 06/11 Patient states that her discharge was delayed because she is going to rehab tomorrow. She still complains of some shortness of breath but no chest pain. Heart rate is 75, blood pressure 98/56. No repeat labs for today. 06/12/2023 Patient examined this morning at the bedside. Patient denies chest pain or pre ssure. She denies shortness of breath. Vital signs are stable. Patient is supposed to be discharged to [facility] today. However she states she does not want to go to rehab and wants to be discharged home. This was communicated to the admitting team. PHYSICAL EXAM: VITAL SIGNS: Reviewed. GENERAL: Well-developed in no acute distress. NECK: Supple. No JVD or thyromegaly LUNGS: Respirations even and unlabored. Lungs essentially clear to auscultation bilaterally. HEART: Regular rate and rhythm. S1 and S2 heard. Systolic murmur noted EXTREMITIES: Normal range of motion. No clubbing or cyanosis. Peripheral pulses intact. No lower extremity edema ASSESSMENT: Non-ST elevated myocardial infarction status post cardiac catheterization as above New onset paroxysmal atrial fibrillation with RVR, converted to sinus rhythm Leukocytosis History of coronary artery disease with previous CABG with BENSON to LAD, SVG to diagonal, SVG to OM, SVG to PDA Lower extremity PAD Hypertension Dyslipidemia Carotid atherosclerosis Valvular heart disease with aortic stenosis and regurgitation Moderate pleural effusions on CT Enlarged mediastinal and hilar lymph nodes on CT PLAN: Continue current cardiac medications Patient is cleared for discharge from a cardiac standpoint She is to follow-up postdischarge with Dr. Cespedes Nurse practitioner note has been reviewed by physician. Signing provider agrees with the documented findings, assessment, and plan of care documented by SCREEN PRINTING EQUIPMENT SETTER as a scribe. Objective - Vital Signs Vital signs: Vital Signs Temp 97.8 F 06/12/23 07:30 Pulse 60 06/12/23 07:30 Resp 17 06/12/23 07:30 BP 107/51 06/12/23 07:30 Pulse Ox 93 L 06/12/23 07:30 FiO2 Intake & Output 06/11/23 06/12/23 06/12/23 18:59 06:59 18:59 Intake Total 840 500 Output Total 3 200 300 Balance 837 300 -300 Weight 45 kg Intake: Oral 840 500 Output: Urine 3 200 300 Other: Voiding Method Toilet Toilet Diaper # Voids 2 2 1 - Labs CBC & Chem 7: 06/10/23 08:38 06/10/23 08:38
[2023-06-12 13:21] VITALS: BP 120/68; PULSE 61; RESP 16
--- NOTE | 2023-06-12 13:26 | P.PN ---
Subjective Progress Note Date: 06/12/23 Patient is a 78-year-old white female with past medical history significant for coronary artery disease with previous CABG, aortic stenosis and regurgitation, hypertension, hyperlipidemia, TIA/CVA, PAD, chronic ongoing tobacco dependence, COPD, among other things. Her primary care provider is a ANDRA Aly. Patient has been experiencing ongoing worsening shortness of breath and occasional heart palpitations that started on Wednesday. No episodes of syncope. on June 08, she started to have substernal chest tightness while at rest, this started around 0, she presented to the emergency room approximately 2 hours later. She was found to be in atrial fibrillation with rapid ventricular response. She was started on Cardizem infusion per cardiology recommendation. She had elevated troponins and she was taken to [facility] yesterday. Previous bypasses were felt to be patent including BENSON to the LAD, SVG to the OM, and SVG to RCA. She did have intermediate disease involving the PLV branch of the RCA. No PCI or stenting was performed. Chest x-ray on arrival showed hyperinflation with superimposed pulmonary vascular congestion, interstitial edema, and small bilateral pleural effusions and associated atelectasis consistent with CHF. NT proBNP was elevated at 5720. Patient was started on Lasix 40 mg twice daily. We were consulted for the bilateral pleural effusions and CTA findings. She did have an elevated D-dimer on this admission, and a follow-up chest CTA showed no evidence of pulmonary emboli. It did show advanced central lobar emphysematous changes with possible bronchitis, pneumonitis and bilateral lobe consolidation with moderate pleural effusions. There is enlarged mediastinal and hilar lymphadenopathy. Patient herself denies any infectious symptoms other than a dry nonproductive cough. She does have COPD and heavy smoking history. She continues to smoke approximately 6 cigarettes per day. The dry cough has been ongoing since starting a new inhaler, Stiolto, which was given to her by her PCP. She attributes her symptoms to this new medic ation. In the past, she has not tolerated Trelegy inhaler due to reported heart palpitations and arrhythmias. She denies any infectious symptoms such as fever, chills, myalgias, sputum production or hemoptysis. She is currently afebrile. CBC from admission: WC count of 15.7, hemoglobin 13.8, hematocrit 43.5, platelets 212. BMP on admission: Sodium 136, potassium 4.4, chloride 105, serum bicarb 21, BUN 23, creatinine 0.71, glucose 127. She is currently sitting up in bed, on 2 L/min nasal cannula, in no acute distress. SpO2 is 95%. She does not normally wear home oxygen. She denies any current chest pain or heart palpitations. She has since converted to normal sinus rhythm. Vital signs are stable. Reevaluate today on 06/11/2023, patient is doing great, asymptomatic, hardly any pulmonary symptoms no cough no wheezing no shortness of breath. Patient was seen by cardiology for her congestive heart failure and she was placed on Lasix 40 mg p.o. twice daily. For her underlying COPD the patient is placed on DuoNeb updrafts and she is also on Symbicort. Doing great, relatively asymptomatic, being considered for possible discharge planning either today or tomorrow patient is supposed to [facility] a [facility] home[facility] is normal electrolytes are normal renal profile is normal her troponins were elevated on admission and her last troponin was 4.5 yesterday The patient is seen today June 12, 2023 in follow-up on the regular medical floor. She is currently sitting up in bed. Awake and alert in no acute distress. She is maintaining good O2 saturations in the 90s on room air. Lung quintana are clear. No labs today. Continue on DuoNeb inhalations, Symbicort. Remains on oral diuretics. Anticoagulated with Eliquis. Objective - Vital Signs Vital signs: Vital Signs Temp 97.8 F 06/12/23 07:30 Pulse 61 06/12/23 12:20 Resp 16 06/12/23 12:20 BP 120/68 06/12/23 12:20 Pulse Ox 95 06/12/23 12:20 FiO2 Intake & Output 06/11/23 06/12/23 06/12/23 18:59 06:59 18:59 Intake Total 840 500 Output Total 3 200 300 Balance 837 300 -300 Weight 45 kg Intake: Oral 840 500 Output: Urine 3 200 300 Other: Voiding Method Toilet Toilet Diaper # Voids 2 2 1 - Exam GENERAL EXAM: Alert, 78-year-old female, sitting up in bed, on room air, comfortable in no apparent distress. HEAD: Normocephalic and atraumatic EYES: Normal reaction of pupils, equal size. NOSE: Clear with pink turbinates. THROAT: No erythema or exudates. NECK: No masses, no JVD. CHEST: No chest wall deformity. LUNGS: Clear bilaterally no crackles, rhonchi or wheezes CVS: S1 and S2 normal with grade 2 systolic murmur, regular rhythm. No other extra heart sounds ABDOMEN: No hepatosplenomegaly, active bowel sounds, no guarding or rigidity. SKIN: No rashes CENTRAL NERVOUS SYSTEM: No focal deficits, tone is normal in all 4 extremities. EXTREMITIES: There is no peripheral edema, clubbing, or cyanosis. Peripheral pulses are intact. - Labs CBC & Chem 7: 06/10/23 08:38 06/10/23 08:38 Assessment and Plan Assessment: Acute non-ST elevation myocardial infarction Acute diastolic congestive heart failure New onset atrial fibrillation with RVR. Anticoagulated with Eliquis Underlying coronary artery disease History of valvular heart disease including moderate aortic stenosis and aortic regurgitation Benign essential hypertension Nonspecific mediastinal and hilar lymph nodes needs outpatient follow-up and possibly repeat CT of the chest in the next 4 months Plan: The patient was seen and evaluated Medications reviewed Stable and on room air Continued on Symbicort, DuoNeb inhalation Continued on oral diuretics Anticoagulated with Eliquis Plan is for subacute rehab at discharge, possibly today Will need follow-up CT scan of the chest in 3 to 4 months I have personally seen and examined the patient, performed the documentation and the assessment and plan as written. Number of minutes spent on the visit: 10.
--- NOTE | 2023-06-13 17:12 | P.DS ---
Providers Date of admission: 06/09/23 00:49 Attending physician: Maxx Crowe MD Consults: 06/09/23 00:47 Consult Physician Routine Consulting Provider: Chuy Cespedes Consult Reason/Comments: Onset atrial fibrillation. Congestive heart failure Do you want consulting provider notified?: Yes 06/09/23 14:03 Consult Physician Routine Consulting Provider: Tari Cross Consult Reason/Comments: Moderate pleural effusions, enlarged mediastinal and hilar lymph nodes-CTA Do you want consulting provider notified?: Yes Primary care physician: Glendy Barros Hospital Course: Final diagnosis Acute Non-STEMI status post cardiac catheterization, triple-vessel disease patient is recommended for medical management New onset paroxysmal atrial fibrillation with RVR, converted to sinus rhythm Acute CHF exacerbation, diastolic dysfunction Enlarged mediastinal and hilar lymph nodes reported per CTA, requires further follow-up outpatient and possible repeat chest CT in 4 months Moderate pleural effusions reported per CTA Leukocytosis, resolved Lactic acidosis, resolved CAD, history of AK, CABG Moderate aortic stenosis Moderate aortic regurgitation Carotid arterial sclerosis PAD History of CVA Gastroesophageal reflux disease Ongoing nicotine dependence, 1/2 pack/day x 50 years Transverse colon biopsy reported sessile serrated adenoma 06/11/2022 , further fo llow-up outpatient with follow-up endoscopy as advised per general surgery. Hypertension Hyperlipidemia History of right thyroid nodule, monitoring outpatient with PCP Discharge disposition Patient is medically stable for discharge home. Patient is a high risk for readmission due to unsteadiness when ambulating however patient is alert x 3 and does not wish to go to subacute rehabilitation. Her family is at the bedside and this is discussed and they are agreeable and okay with patient returning home. New medications include an increase of Lasix up to 40 mg twice a day, patient has also been started on Eliquis for anticoagulation due to the new onset atrial fibrillation. Patient is also given sublingual nitroglycerin as needed. Recommending to follow-up with cardiology Dr. Robledo outpatient. Patient was medically managed for the triple-vessel disease. 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 Patient is also prior stroke. Reports to the hospital with complaints of shortness of breath, palpitations and chest pain. She is also having nonproductive cough over the last 2 days. Patient attempted a new inhaler without improvement. So she comes into the ER for further evaluation due to the progression of chest pain that is now associated with diaphoresis. Patient had a elevated D-dimer of 2.[address] angiography was negative for pulmonary embolism and did reveal moderate bilateral pleural effusions and enlarged mediastinal and hilar lymph nodes. Patient was found to be in a new onset paroxysmal atrial fibril lation with rapid ventricular rate. A second EKG revealed sinus bradycardia with left bundle branch block patient did convert. She was treated with heparin and Cardizem drip and IV Lasix. She did also have troponin elevation and a elevated proBNP of 5720. Due to the troponin elevation with a upward trend peaking at 4.56 patient was recommended to undergo cardiac catheterization which reveals severe triple-vessel disease. There was a patent BENSON to the LAD, a patent saphenous vein graft to the OM, patent saphenous vein graft to the RCA with intermediate disease involving the PLV branch of the RCA. There was normal left-sided filling pressures with mild gradient across the aortic valve, cardiology had recommended medical management of these findings and patient will continue on her current cardiac medications. An echocardiogram was completed showing an EF of 50 to 55% with mild aortic stenosis and moderate aortic regurgitation. Patient does report having bad balance at all times that she was evaluated by physical therapy who is recommending subacute rehab however patient did refuse at this time. She did miss her brother's who has recently . She lives at home by herself however discharge planning was discussed with her daughter and they are okay with patient discharging home. She understands that she should use a walker at all times when up ambulating. Patient will need to follow-up close with pulmonary and cardiology services. As above discharge recommendations in place and she is also started on Eliquis for anticoagulation. Chest pain denies shortness of breath no nausea vomiting or diarrhea. She is alert x 3 with no focal neurological deficits. Most recent blood work revealing a negative viral panel for influenza COVID and RSV. Sodium of 136, BUN of 25, creatinine of 0.79, normal CBC. Patient will be discharged home. Please see medication reconciliation for list of current medication. Thank you for allowing us to participate in care of this patient. The impression and plan of care has been dictated by Flor Bautista, Nurse Practitioner as directed. Dr. Torito MD I have performed a history and physical examination and medical decision making of this patient, discussed the same with the dictator, and agree with the dictators assessment and plan as written, documented as a scribe. Based on total visit time, I have performed more than 50% of this visit. Patient Condition at Discharge: Stable Plan - Discharge Summary Discharge Rx Participant: No New Discharge Prescriptions: New Budesonide [Pulmicort Flexhaler] 1 puff INHALATION BID #1 each Furosemide [Lasix] 40 mg PO 0900,1600 #60 tablet Apixaban [Eliquis] 5 mg PO BID #60 tab Nitroglycerin Sl Tabs [Nitrostat] 0.4 mg SUBLINGUAL Q5M PRN #25 tab PRN Reason: Chest Pain Continue Vit C/E/Zn/Coppr/Lutein/Zeaxan [Preservision Areds 2 Softgel] 1 cap PO W/SUPPER Atorvastatin Calcium [Lipitor] 80 mg PO W/SUPPER Clopidogrel [Plavix] 75 mg PO DAILY Multivitamins, Thera [Multivitamin (formulary)] 1 tab PO DAILY traZODone HCL 300 mg PO HS Calcium Carb-Vit D 500Mg-5Mcg [Oscal 500+D 5 Mcg (200 Iu)] 4 tab PO DAILY Isosorbide Mononitrate [Isosorbide Mononitrate ER] 30 mg PO DAILY HYDROcodone/APAP 10-325MG [[place] 10-325] 1 tab PO TID Omeprazole 40 mg PO W/SUPPER Metoprolol Tartrate [Lopressor] 12.5 mg PO DAILY Tiotropium Br/Olodaterol HCl [Stiolto Respimat Inhal [place]] 1 puff INHALATION RT-DAILY Discontinued Aspirin [Adult Low Dose Aspirin EC] 81 mg PO DAILY Furosemide [Lasix] 40 mg PO DAILY Nitrofurantoin Monohyd/M-Cryst [Macrobid] 100 mg PO BID Discharge Medication List Atorvastatin Calcium [Lipitor] 80 mg PO W/SUPPER 12/02/15 [History] Vit C/E/Zn/Coppr/Lutein/Zeaxan [Preservision Areds 2 Softgel] 1 cap PO W/SUPPER 12/02/15 [History] Clopidogrel [Plavix] 75 mg PO DAILY 12/05/15 [History] Multivitamins, Thera [Multivitamin (formulary)] 1 tab PO DAILY 01/22/16 [History] Calcium Carb-Vit D 500Mg-5Mcg [Oscal 500+D 5 Mcg (200 Iu)] 4 tab PO DAILY 03/03/17 [History] traZODone HCL 300 mg PO HS 03/03/17 [History] Isosorbide Mononitrate [Isosorbide Mononitrate ER] 30 mg PO DAILY 05/12/18 [History] HYDROcodone/APAP 10-325MG [[place] 10-325] 1 tab PO TID 06/09/23 [History] Metoprolol Tartrate [Lopressor] 12.5 mg PO DAILY 06/09/23 [History] Omeprazole 40 mg PO W/SUPPER 06/09/23 [History] Tiotropium Br/Olodaterol HCl [Stiolto Respimat Inhal [place]] 1 puff INHALATION RT-DAILY 06/09/23 [History] Apixaban [Eliquis] 5 mg PO BID #60 tab 06/12/23 [Rx] Budesonide [Pulmicort Flexhaler] 1 puff INHALATION BID #1 each 06/12/23 [Rx] Furosemide [Lasix] 40 mg PO 0900,1600 #60 tablet 06/12/23 [Rx] Nitroglycerin Sl Tabs [Nitrostat] 0.4 mg SUBLINGUAL Q5M PRN #25 tab 06/12/23 [Rx] Follow up Appointment(s)/Referral(s): Tari Cross MD [STAFF PHYSICIAN] - 2 Weeks Maxx Crowe MD [STAFF PHYSICIAN] - 3 Days Chuy Cespedes MD [STAFF PHYSICIAN] - 1 Week Ambulatory/Diagnostic Orders: Basic Metabolic Panel [LAB.AMB] Location: None Selected Complete Blood Count w/diff [LAB.AMB] Time Frame: 3 Days, Location: None Selected Patient Instructions/Handouts: A-fib (Atrial Fibrillation) (IP) Discharge Disposition: HOME WITH HOME HEALTH SERVICES
== END 2023-06-12 14:45 | disposition home health service (06) | DRG 280 ==
LOC: EC 20:59 → 3SCARD 06-09 00:49 → 5NMEDONC 06-12 00:01
PROVIDERS: ADMIT Family Medicine; ATTEND Family Medicine
PROC: B2181ZZ Fluoroscopy of Left Internal Mammary Bypass Graft using Low Osmolar Contrast (ICD-10-PCS; principal; 2023-06-09 09:00)
PROC: 4A023N7 Measurement of Cardiac Sampling and Pressure, Left Heart, Percutaneous Approach (ICD-10-PCS; principal; 2023-06-09 09:00)
PROC: B2131ZZ Fluoroscopy of Multiple Coronary Artery Bypass Grafts using Low Osmolar Contrast (ICD-10-PCS; principal; 2023-06-09 09:00)
PROC: B41F1ZZ Fluoroscopy of Right Lower Extremity Arteries using Low Osmolar Contrast (ICD-10-PCS; principal; 2023-06-09 09:00)
PROC: 4A033BC Measurement of Arterial Pressure, Coronary, Percutaneous Approach (ICD-10-PCS; principal; 2023-06-09 09:00)
PROC: B2111ZZ Fluoroscopy of Multiple Coronary Arteries using Low Osmolar Contrast (ICD-10-PCS; principal; 2023-06-09 09:00)
DX: I21.4 Non-ST elevation (NSTEMI) myocardial infarction (principal); I50.33 Acute on chronic diastolic (congestive) heart failure; J96.01 Acute respiratory failure with hypoxia; E44.1 Mild protein-calorie malnutrition; I47.10 Supraventricular tachycardia, unspecified; Z68.1 Body mass index [BMI] 19.9 or less, adult; J98.11 Atelectasis; I11.0 Hypertensive heart disease with heart failure; I73.9 Peripheral vascular disease, unspecified; Z86.74 Personal history of sudden cardiac arrest; Z95.1 Presence of aortocoronary bypass graft; J43.9 Emphysema, unspecified; J44.9 Chronic obstructive pulmonary disease, unspecified; I65.29 Occlusion and stenosis of unspecified carotid artery; I48.0 Paroxysmal atrial fibrillation; I25.10 Atherosclerotic heart disease of native coronary artery without angina pectoris; I25.84 Coronary atherosclerosis due to calcified coronary lesion; I08.3 Combined rheumatic disorders of mitral, aortic and tricuspid valves; K64.8 Other hemorrhoids; I44.0 Atrioventricular block, first degree; I44.7 Left bundle-branch block, unspecified; I25.2 Old myocardial infarction; E78.00 Pure hypercholesterolemia, unspecified; K21.9 Gastro-esophageal reflux disease without esophagitis; G89.29 Other chronic pain; M54.50 Low back pain, unspecified; M19.90 Unspecified osteoarthritis, unspecified site; R59.0 Localized enlarged lymph nodes; L98.9 Disorder of the skin and subcutaneous tissue, unspecified; R25.1 Tremor, unspecified; H91.90 Unspecified hearing loss, unspecified ear; F17.210 Nicotine dependence, cigarettes, uncomplicated; Z71.6 Tobacco abuse counseling; Z79.82 Long term (current) use of aspirin; Z79.02 Long term (current) use of antithrombotics/antiplatelets; Z79.899 Other long term (current) drug therapy; Z86.73 Personal history of transient ischemic attack (TIA), and cerebral infarction without residual deficits; Z71.3 Dietary counseling and surveillance; Z91.040 Latex allergy status
CPT/HCPCS: 36415; 71045; 71275; 76937; 80048; 80053; 83605; 83735; 83880; 84484; 85025; 85379; 85610; 85730; 87636; 93005; 93306; 93459; 93799; 94640; 94760; 96365; 96366; 96368; 99291

== ENCOUNTER 2024-04-21 11:51 | Inpatient (IN) | payer MEDICARE, BC ==
[2024-04-21] MEDS ORDERED: IPRATROPIUM-ALBUTEROL 3 ML NEB INHALATION STA (12:34)
--- NOTE | 2024-04-21 12:37 | ED ---
General Adult HPI - General Chief complaint: Shortness of Breath Stated complaint: Difficulty breathing Time Seen by Provider: 04/21/24 12:04 Source: patient, EMS, RN notes reviewed Mode of arrival: EMS Limitations: no limitations - History of Present Illness Initial comments: Patient is an 79-year-old female present to the emergency department with baldo molina for difficulty in breathing. Onset of symptoms was around 3 days ago. Patient does have cough with yellow sputum. Patient also admits to having some chest discomfort however states that is only when coughing. No discomfort at this time. No fevers. - Related Data Home Medications Medication Instructions Recorded Confirmed Vit C/E/Zn/Coppr/Lutein/Zeaxan 1 cap PO BID 12/02/15 04/21/24 [Preservision Areds 2 Softgel] Clopidogrel [Plavix] 75 mg PO DAILY 12/05/15 04/21/24 Calcium Carb-Vit D 500Mg-5Mcg 2 tab PO DAILY 03/03/17 04/21/24 [Oscal 500+D 5 Mcg (200 Iu)] traZODone HCL 300 mg PO HS 03/03/17 04/21/24 Isosorbide Mononitrate [Isosorbide 30 mg PO DAILY 05/12/18 04/21/24 Mononitrate ER] HYDROcodone/APAP 10-325MG [[place] 1 tab PO TID 06/09/23 04/21/24 10-325] Metoprolol Tartrate [Lopressor] 12.5 mg PO DAILY 06/09/23 04/21/24 Omeprazole 40 mg PO DAILY 06/09/23 04/21/24 Apixaban [Eliquis] 2.5 mg PO BID 04/21/24 04/21/24 Atorvastatin [Lipitor] 80 mg PO W/SUPPER 04/21/24 04/21/24 Furosemide [Lasix] 40 mg PO BID 04/21/24 04/21/24 PARoxetine [Paxil] 10 mg PO HS 04/21/24 04/21/24 Psyllium Husk (with Sugar) 1 scoop PO DAILY 04/21/24 04/21/24 [Metamucil Powder] Previous Rx's Medication Instructions Recorded Nitroglycerin Sl Tabs [Nitrostat] 0.4 mg SUBLINGUAL Q5M PRN #25 tab 06/12/23 Allergies Allergy/AdvReac Type Severity Reaction Status Date / Time latex Allergy Rash/Hives Verified 04/21/24 14:12 Review of Systems ROS Statement: Those systems with pertinent positive or pertinent negative responses have been documented in the HPI. ROS Other: All systems not noted in ROS Statement are negative. Constitutional: Denies: fever, chills Eyes: Denies: eye pain ENT: Denies: ear pain Respiratory: Reports: as per HPI, cough, dyspnea Cardiovascular: Reports: as per HPI Endocrine: Denies: fatigue Gastrointestinal: Denies: abdominal pain Musculoskeletal: Denies: back pain Past Medical History Past Medical History: CVA/TIA, GERD/Reflux, Hyperlipidemia, Hypertension, Myocardial Infarction ([place]), Osteoarthritis (OA), Skin Disorder Additional Past Medical History / Comment(s): hx migraines, Stroke-11/2015- drooping of upper lip, heart murmer, callus on left breast, chronic back pain, 2021 with some tremors and R sided weakness. Last Myocardial Infarction Date:: 10/2011 History of Any Multi-Drug Resistant Organisms: None Reported Past Surgical History: Appendectomy, Back Surgery, Coronary Bypass/CABG, Heart Catheterization, Hysterectomy, Orthopedic Surgery Additional Past Surgical History / Comment(s): rt knee surgery, chris cataracts, heart cath (05/2013)-pt not sure if any stents, CABG 2011, COLONOSCOPY, Past Anesthesia/Blood Transfusion Reactions: Previous Problems w/ Anesthesia Additional Past Anesthesia/Blood Transfusion Reaction / Comment(s): WENT INTO CARDIAC ARREST IN [place] AFTER BACK SURGERY 2015. States has never had any problems with anesthesia before. States to her knowledge she does not know why. Past Psychological History: No Psychological Hx Reported Smoking Status: Current every day smoker Past Alcohol Use History: Rare Past Drug Use History: None Reported - Past Family History Brother(s) Family Medical History: Cancer General Exam Limitations: no limitations General appearance: alert, in no apparent distress Head exam: Present: normocephalic Eye exam: Present: normal appearance Neck exam: Present: normal inspection Respiratory exam: Present: normal lung sounds bilaterally Cardiovascular Exam: Present: regular rate, normal rhythm, normal heart sounds Expanded Peripheral pulses: 2+: Radial (R), Radial (L), Dorsalis Pedis (R), Dorsalis Pedis (L) GI/Abdominal exam: Present: soft. Absent: tenderness Extremities exam: Present: pedal edema (Patient states chronic, +1). Absent: calf tenderness Neurological exam: Present: alert Psychiatric exam: Present: normal affect, normal mood Skin exam: Present: normal color Course Vital Signs 04/21/24 04/21/24 04/21/24 11:58 12:07 13:23 Pulse Rate 56 L 59 L Pulse Rate [ 56 L Metal Machinist ] Respiratory 19 Rate Blood Pressure 101/82 O2 Sat by Pulse 95 93 L Oximetry EKG Findings - EKG Results: EKG: interpreted by ERMD (Left axis. Left bundle branch block. Nonspecific ST- T.), sinus rhythm EKG shows: bradycardia Medical Decision Making - Medical Decision Making Was pt. sent in by a medical professional or institution (, PA, CRITICAL CARE SPECIALIST, urgent care, hospital, or custodial...) When possible be specific @ -No Did you speak to anyone other than the patient for history (EMS, parent, family, police, friend...)? What history was obtained from this source @ -No Did you review nursing and triage notes (agree or disagree)? Why? @ -I reviewed and agree with nursing and triage notes Were old charts reviewed (outside hosp., previous admission, EMS record, old EKG, old radiological studies, urgent care reports/EKG's, custodial records)? Report findings @ -No old charts were reviewed Differential Diagnosis (chest pain, altered mental status, abdominal pain women, abdominal pain men, vaginal bleeding, weakness, fever, dyspnea, syncope, headache, dizziness, GI bleed, back pain, seizure, CVA, palpatations, mental health, musculoskeletal)? @ -Differential Dyspnea: Coronary syndrome, arrhythmia, tamponade, asthma, COPD, pulmonary embolism, pneumonia, pneumothorax, pulmonary effusion, anaphylaxis, diabetic ketoacidosis, flailed chest, pulmonary contusion, diaphragmatic rupture, anemia, neuromuscular, this is not meant to be an all-inclusive list. EKG interpreted by me (3pts min.). @ -As above X-rays interpreted by me (1pt min.). @ -Chest x-ray concerning for CHF CT interpreted by me (1pt min.). @ -None done U/S interpreted by me (1pt. min.). @ -None done What testing was considered but not performed or refused? (CT, X-rays, U/S, labs)? Why? @ -None What meds were considered but not given or refused? Why? @ -None Did you discuss the management of the patient with other professionals (lawanda gould i.e. , ANDRA, CRITICAL CARE SPECIALIST, lab, RT, psych nurse, social science research assistant, [place] physical therapist, teacher, staff electronic warfare officer, showcase maker)? Give summary @ -Case was discussed with Dr. Soto who will admit covering Dr. Barros Was smoking cessation discussed for >3mins.? @ -No Was critical care preformed (if so, how long)? @ -No Were there social determinants of health that impacted care today? How? (Homelessness, low income, unemployed, alcoholism, drug addiction, transportation, low edu. Level, literacy, decrease access to med. care, fdc, rehab)? @ -No Was there de-escalation of care discussed even if they declined (Discuss DNR or withdrawal of care, Hospice)? DNR status @ -No What co-morbidities impacted this encounter? (DM, HTN, Smoking, COPD, CAD, Cancer, CVA, ARF, Chemo, Hep., AIDS, mental health diagnosis, sleep apnea, morbid obesity)? @ -History of COPD Was patient admitted / discharged? Hospital course, mention meds given and route, prescriptions, significant lab abnormalities, going to OR and other pertinent info. @ -Patient presents with shortness of breath. Evaluation concerning for both CHF and COVID-19 infection. Patient will be admitted with pulmonary and cardiology consult. Admission orders written. Patient reevaluated and updated Undiagnosed new problem with uncertain prognosis? @ -No Drug Therapy requiring intensive monitoring for toxicity (Heparin, Nitro, Insulin, Cardizem)? @ -No Were any procedures done? @ -No Diagnosis/symptom? @ -CHF, COVID-19 Acute, or Chronic, or Acute on Chronic? @ -Acute, acute Uncomplicated (without systemic symptoms) or Complicated (systemic symptoms)? @ -Default Side effects of treatment? @ -No Exacerbation, Progression, or Severe Exacerbation? @ -No Poses a threat to life or bodily function? How? (Chest pain, [place], [place], pneumonia, PE, COPD, DKA, ARF, appy, cholecystitis, CVA, Diverticulitis, Homicidal, Suicidal, threat to staff... and all critical care pts) @ -Threat to cardiac and pulmonary function - Lab Data Result diagrams: 04/21/24 12:42 04/21/24 12:42 Lab Results 04/21/24 04/21/24 04/21/24 Range/Units 12:42 12:42 12:42 WBC 6.9 (3.8-10.6) k/uL RBC 3.18 L (3.80-5.40) m/uL Hgb 10.0 L (11.4-16.0) gm/dL Hct 31.2 L (34.0-46.0) % MCV 98.1 (80.0-100.0) fL MCH 31.4 (25.0-35.0) pg MCHC 32.0 (31.0-37.0) g/dL RDW 13.6 (11.5-15.5) % Plt Count 181 (150-450) k/uL MPV 8.0 Neutrophils % 79 % Lymphocytes % 10 % Monocytes % 9 % Eosinophils % 0 % Basophils % 1 % Neutrophils # 5.4 (1.3-7.7) k/uL Lymphocytes # 0.7 L (1.0-4.8) k/uL Monocytes # 0.6 (0-1.0) k/uL Eosinophils # 0.0 (0-0.7) k/uL Basophils # 0.0 (0-0.2) k/uL Hypochromasia Slight PT 11.7 (10.0-12.5) sec INR 1.1 (<1.2) APTT 28.0 (22.0-30.0) sec D-Dimer 0.40 (<0.60) mg/L FEU Sodium 138 (137-145) mmol/L Potassium 4.3 (3.5-5.1) mmol/L Chloride 110 H (98-107) mmol/L Carbon Dioxide 26 (22-30) mmol/L Anion Gap 2 mmol/L BUN 12 (7-17) mg/dL Creatinine 0.68 (0.52-1.04) mg/dL Est GFR (CKD-EPI)AfAm >90 (>60 ml/min/1.73 sqM) Est GFR (CKD-EPI)NonAf 83 (>60 ml/min/1.73 sqM) Glucose 122 H (74-99) mg/dL Plasma Lactic Acid Lennox (0.7-2.0) mmol/L Calcium 8.5 (8.4-10.2) mg/dL Magnesium 2.1 (1.6-2.3) mg/dL Total Bilirubin 0.6 (0.2-1.3) mg/dL AST 37 H (14-36) U/L ALT 16 (4-34) U/L Alkaline Phosphatase 36 L (38-126) U/L Troponin I (0.000-0.034) ng/mL NT-Pro-B Natriuret Pep 70387 pg/mL Total Protein 5.7 L (6.3-8.2) g/dL Albumin 3.2 L (3.5-5.0) g/dL Influenza Type A (PCR) (Not Detectd) Influenza Type B (PCR) (Not Detectd) RSV (PCR) (Not Detectd) SARS-CoV-2 (PCR) (Not Detectd) 04/21/24 04/21/24 04/21/24 Range/Units 12:42 12:42 13:07 WBC (3.8-10.6) k/uL RBC (3.80-5.40) m/uL Hgb (11.4-16.0) gm/dL Hct (34.0-46.0) % MCV (80.0-100.0) fL MCH (25.0-35.0) pg MCHC (31.0-37.0) g/dL RDW (11.5-15.5) % Plt Count (150-450) k/uL MPV Neutrophils % % Lymphocytes % % Monocytes % % Eosinophils % % Basophils % % Neutrophils # (1.3-7.7) k/uL Lymphocytes # (1.0-4.8) k/uL Monocytes # (0-1.0) k/uL Eosinophils # (0-0.7) k/uL Basophils # (0-0.2) k/uL Hypochromasia PT (10.0-12.5) sec INR (<1.2) APTT (22.0-30.0) sec D-Dimer (<0.60) mg/L FEU Sodium (137-145) mmol/L Potassium (3.5-5.1) mmol/L Chloride (98-107) mmol/L Carbon Dioxide (22-30) mmol/L Anion Gap mmol/L BUN (7-17) mg/dL Creatinine (0.52-1.04) mg/dL Est GFR (CKD-EPI)AfAm (>60 ml/min/1.73 sqM) Est GFR (CKD-EPI)NonAf (>60 ml/min/1.73 sqM) Glucose (74-99) mg/dL Plasma Lactic Acid [place] 1.5 (0.7-2.0) mmol/L Calcium (8.4-10.2) mg/dL Magnesium (1.6-2.3) mg/dL Total Bilirubin (0.2-1.3) mg/dL AST (14-36) U/L ALT (4-34) U/L Alkaline Phosphatase (38-126) U/L Troponin I 0.310 H* (0.000-0.034) ng/mL NT-Pro-B Natriuret Pep pg/mL Total Protein (6.3-8.2) g/dL Albumin (3.5-5.0) g/dL Influenza Type A (PCR) Not Detected (Not Detectd) Influenza Type B (PCR) Not Detected (Not Detectd) RSV (PCR) Not Detected (Not Detectd) SARS-CoV-2 (PCR) Detected A (Not Detectd) Disposition Clinical Impression: Congestive heart failure, COVID-19 Disposition: ADMITTED IP TO THIS HOSP Is patient prescribed a controlled substance at d/c from ED?: No Referrals: Glendy Barros DO [Primary Care Provider] - 1-2 days Time of Disposition: 14:23
[2024-04-21 12:57] LABS: Basophils % (A) 1 %; Eosinophils % (A) 0 %; HCT 31.2 % (34.0-46.0); Hypochromasia Slight; Lymphocytes # (A) 0.7 k/uL (1.0-4.8); Lymphocytes % (A) 10 %; MCH 31.4 pg (25.0-35.0); MCV 98.1 fL (80.0-100.0); Monocytes # (A) 0.6 k/uL (0-1.0); Monocytes % (A) 9 %; Neutrophils # (A) 5.4 k/uL (1.3-7.7); Neutrophils % (A) 79 %; Platelet Count 181 k/uL (150-450); RBC 3.18 m/uL (3.80-5.40); RDW 13.6 % (11.5-15.5); WBC 6.9 k/uL (3.8-10.6)
--- NOTE | 2024-04-21 13:07 | XR ---
EXAMINATION TYPE: XR chest 2V DATE OF EXAM: 04/21/2024 12:58 PM COMPARISON: 06/08/2023 CLINICAL INDICATION: Female, 79 years old with shortness of breath, history of difficulty breathing, , TECHNIQUE: AP and lateral views FINDINGS: Median sternotomy wires with post-CABG clips. Heart borderline to mildly enlarged. Diffuse interstiti al density. Small left greater than right pleural effusions persist, slightly improved on the right. Adjacent patchy left basilar opacity remains. IMPRESSION: CHF with pulmonary vascular congestion. Small left and trace right pleural effusions with adjacent at electasis and/or consolidation. [facility], , 04/21/2024 1:05 PM
[2024-04-21 13:08] LABS: ALT 16 U/L (4-34); African American GFR (CKD) >90 (>60 ml/min/1.73 sqM); Anion Gap 2 mmol/L; Blood Urea Nitrogen 12 mg/dL (7-17); Calcium 8.5 mg/dL (8.4-10.2); Carbon Dioxide 26 mmol/L (22-30); Chloride 110 mmol/L (98-107); Glucose 122 mg/dL (74-99); Non-African American GFR(CKD) 83 (>60 ml/min/1.73 sqM); Sodium 138 mmol/L (137-145); Total Bilirubin 0.6 mg/dL (0.2-1.3)
[2024-04-21 13:09] LABS: AST 37 U/L (14-36); Albumin 3.2 g/dL (3.5-5.0); Alkaline Phosphatase 36 U/L (38-126); Magnesium 2.1 mg/dL (1.6-2.3); Potassium 4.3 mmol/L (3.5-5.1); Total Protein 5.7 g/dL (6.3-8.2)
[2024-04-21 13:13] LABS: INR 1.1 (<1.2); Prothrombin Time 11.7 sec (10.0-12.5)
[2024-04-21 13:16] LABS: NT-Pro-B-Type Natriuretic Pept 29900 pg/mL
[2024-04-21] MEDS: ALBUTEROL HFA INHALER INHALATION STA (14:04)
[2024-04-21] MEDS ORDERED: NITROGLYCERIN SL TABS 0.4 MG TAB SUBLINGUAL PRN (14:25)
[2024-04-21] MEDS: HYDROcodone/APAP 10-325MG 1 EACH TAB PO SCH (15:25)
[2024-04-21] MEDS: NITROGLYCERIN OINT 1 INCH/GM PACKET TOPICAL SCH (15:26)
[2024-04-21] MEDS: ASPIRIN 325 MG TAB PO STA (15:26)
[2024-04-21] MEDS: ATORVASTATIN 80 MG TAB PO SCH (15:26)
[2024-04-21] MEDS: FUROSEMIDE 10 MG/ML 4 ML VIAL IV SCH (15:26)
[2024-04-21] MEDS: traZODone HCL 100 MG TAB PO SCH (20:54)
[2024-04-21] MEDS: PARoxetine 10 MG TAB PO SCH (20:54)
[2024-04-21] MEDS: APIXABAN 2.5 MG TABLET PO SCH (20:54)
[2024-04-21] MEDS: VIT A,C & E-LUTEIN-MINERALS 1 EACH TAB PO SCH (20:55)
[2024-04-21] MEDS: DEXAMETHASONE SOD PHOSPHATE 10 MG/ML 1 ML VIAL IV SCH (21:03)
--- NOTE | 2024-04-21 22:52 | P.CONS ---
History of Present Illness - Reason for Consult Consult date: 04/21/24 COVID-19 Requesting physician: Leann Medrano - Chief Complaint Shortness of breath and cough x 3 days - History of Present Illness Patient is a 79-year-old female with a past medical history significant for hypertension hyperlipidemia CT osteoarthritis, presenting to the hospital for evaluation of difficulty breathing patient symptom has been getting worse over the last 3 days before presentation to the hospital patient denies significant URI symptoms except some runny nose patient also have a cough mild to moderate intensity and is bringing up some yellow sputum no hemoptysis patient did have some discomfort with episode of coughing no fever no chills pat ient denies having any nausea no vomiting no choking on the food no abdominal pain no diarrhea no urinary symptoms on presentation to the hospital the patient was afebrile no fever have been recorded subsequently patient was not tachycardic further mildly bradycardia arrhythmic not hypotensive mildly hypoxic currently 92% on room air and 94% on 2 L nasal cannula oxygen patient did have white count of 6.9 with lymphopenia creatinine has been 0.68 troponin was elevated liver enzymes are normal patient did tested positive for COVID-19 chest x-ray did shows pulmonary vascular congestion small left and trace right effusion with adjacent atelectasis and or consolidation patient has been admitted to the hospital started on ceftriaxone infectious disease was consulted for further management Review of Systems Positive point and negatives has been mentioned in the HPI, complete review of systems was performed and all other systems are negative Past Medical History Past Medical History: CVA/TIA, GERD/Reflux, Hyperlipidemia, Hypertension, Myocardial Infarction (CT), Osteoarthritis (OA), Skin Disorder Additional Past Medical History / Comment(s): hx migraines, 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 Last Myocardial Infarction Date:: 10/2011 History of Any Multi-Drug Resistant Organisms: None Reported Past Surgical History: Appendectomy, Back Surgery, Coronary Bypass/CABG, Heart Catheterization, Hysterectomy, Orthopedic Surgery Additional Past Surgical History / Comment(s): rt knee surgery, chris cataracts, heart cath (05/2013)-pt not sure if any stents, CABG 2011, COLONOSCOPY, Past Anesthesia/Blood Transfusion Reactions: Previous Problems w/ Anesthesia Additional Past Anesthesia/Blood Transfusion Reaction / Comm: WENT INTO CARDIAC ARREST IN RECOVERY AFTER BACK SURGERY 2016. States has never had any problems with anesthesia before. States to her knowledge she does not know why. Past Psychological History: No Psychological Hx Reported Smoking Status: Current every day smoker Past Alcohol Use History: Rare Past Drug Use History: None Reported - Past Family History Brother(s) Family Medical History: Cancer Medications and Allergies Home Medications Medication Instructions Recorded Confirmed Type Vit C/E/Zn/Coppr/Lutein/Zeaxan 1 cap PO BID 12/02/15 04/21/24 History [Preservision Areds 2 Softgel] Clopidogrel [Plavix] 75 mg PO DAILY 12/05/15 04/21/24 History Calcium Carb-Vit D 500Mg-5Mcg 2 tab PO DAILY 03/03/17 04/21/24 History [Oscal 500+D 5 Mcg (200 Iu)] traZODone HCL 300 mg PO HS 03/03/17 04/21/24 History Isosorbide Mononitrate [Isosorbide 30 mg PO DAILY 05/12/18 04/21/24 History Mononitrate ER] HYDROcodone/APAP 10-325MG [[place] 1 tab PO TID 06/09/23 04/21/24 History 10-325] Metoprolol Tartrate [Lopressor] 12.5 mg PO DAILY 06/09/23 04/21/24 History Omeprazole 40 mg PO DAILY 06/09/23 04/21/24 History Nitroglycerin Sl Tabs [Nitrostat] 0.4 mg SUBLINGUAL Q5M PRN #25 tab 06/12/23 04/21/24 Rx Apixaban [Eliquis] 2.5 mg PO BID 04/21/24 04/21/24 History Atorvastatin [Lipitor] 80 mg PO W/SUPPER 04/21/24 04/21/24 History Furosemide [Lasix] 40 mg PO BID 04/21/24 04/21/24 History PARoxetine [Paxil] 10 mg PO HS 04/21/24 04/21/24 History Psyllium Husk (with Sugar) 1 scoop PO DAILY 04/21/24 04/21/24 History [Metamucil Powder] Allergies Allergy/AdvReac Type Severity Reaction Status Date / Time latex Allergy Rash/Hives Verified 04/21/24 14:12 Physical Exam Vitals: Vital Signs Temp Pulse Pulse Resp BP BP Pulse Ox 04/21/24 19:50 58 L 16 123/87 94 L 04/21/24 17:12 97.8 F 54 L 17 127/57 92 L 04/21/24 15:01 98.3 F 64 19 110/57 100 04/21/24 13:23 59 L 19 93 L 04/21/24 12:07 56 L 04/21/24 11:58 56 L 101/82 95 Intake and Output 04/21/24 04/21/24 04/21/24 06:59 14:59 22:59 Other: Weight 49.895 kg GENERAL DESCRIPTION: Elderly female lying in bed, no distress. No tachypnea or accessory muscle of respiration use. HEENT: Shows Pallor , no scleral icterus. Oral mucous membrane is dry. NECK: Trachea central, no thyromegaly. LUNGS: Unlabored breathing. Decreased breath sound at the base HEART: S1, S2, regular rate and rhythm. No loud murmur ABDOMEN: Soft, no tenderness , EXTREMITIES: No edema of feet. SKIN: No rash, no masses palpable. NEUROLOGICAL: The patient is awake, alert, oriented x3, mood and affect normal. Results CBC & Chem 7: 04/21/24 12:42 04/21/24 12:42 Labs: Abnormal Lab Results - Last 24 Hours (Table) 04/21/24 04/21/24 04/21/24 Range/Units 12:42 12:42 12:42 RBC 3.18 L (3.80-5.40) m/uL Hgb 10.0 L (11.4-16.0) gm/dL Hct 31.2 L (34.0-46.0) % Lymphocytes # 0.7 L (1.0-4.8) k/uL Chloride 110 H (98-107) mmol/L Glucose 122 H (74-99) mg/dL AST 37 H (14-36) U/L Alkaline Phosphatase 36 L (38-126) U/L Troponin I 0.310 H* (0.000-0.034) ng/mL Total Protein 5.7 L (6.3-8.2) g/dL Albumin 3.2 L (3.5-5.0) g/dL SARS-CoV-2 (PCR) (Not Detectd) 04/21/24 04/21/24 04/21/24 Range/Units 12:42 16:29 19:09 RBC (3.80-5.40) m/uL Hgb (11.4-16.0) gm/dL Hct (34.0-46.0) % Lymphocytes # (1.0-4.8) k/uL Chloride (98-107) mmol/L Glucose (74-99) mg/dL AST (14-36) U/L Alkaline Phosphatase (38-126) U/L Troponin I 0.325 H* 0.283 H* (0.000-0.034) ng/mL Total Protein (6.3-8.2) g/dL Albumin (3.5-5.0) g/dL SARS-CoV-2 (PCR) Detected A (Not Detectd) Assessment and Plan (1) COVID-19 Current Visit: Yes Status: Acute Code(s): U07.1 - COVID-19 SNOMED Code(s): 758190417 Plan: 1patient presented to hospital with increasing shortness of breath cough bring up some yellow sputum in this patient did have bibasilar atelectasis versus infiltrate did have hypoxemia tested positive for COVID-19 possible COVID-19 pneumonia secondary bacterial pneumonia less likely but not entirely excluded 2-we will check sputum for Gram stain and culture check a CRP and procalcitonin level 3-because of hypoxemia we will add dexamethasone continue with Eliquis and zinc and ascorbic acid 4-droplet isolation We will follow on clinical condition and cultures to further adjust medication if needed Thank you for this consultation we will follow the patient along with you Dictation was produced using [employer] dictation software. please excuse any grammatical, word or spelling errors. Time with Patient: Greater than 30
--- NOTE | 2024-04-22 03:11 | HP ---
HISTORY AND PHYSICAL CHIEF COMPLAINT: Shortness of breath, cough, sputum, and COVID. HISTORY OF PRESENT ILLNESS: This is an 79-year-old woman with a past medical history of multiple medical problems including GERD, hypertension, hyperlipidemia, was complaining of shortness of breath and cough and sputum for the last 3 days. The patient came to [facility]. Chest x-ray showed evidence of some CHF, pneumonia, and as well as COVID-19 is also positive. BNP is elevated. Troponin is elevated up to 0.310. There is no history of any fever, rigors, or chills at this time. PAST MEDICAL HISTORY: Hypertension, hyperlipidemia. Rest of the history and rest of the chart is also reviewed. HOME MEDICATIONS: Eliquis. Doses and rest of medications reviewed. ALLERGIES: Latex. FAMILY HISTORY: History of cancer in the family. SOCIAL HISTORY: History of smoking. REVIEW OF SYSTEMS: Fourteen-point review of systems is negative except as mentioned earlier. PHYSICAL EXAMINATION: VITAL SIGNS: Pulse is 59, blood pressure is 110/57, respirations 19. HEENT: Conjunctivae normal. NECK: No JVD. CARDIOVASCULAR: S1, S2. RESPIRATIONS: Breath sounds diminished at the bases. A few scattered rhonchi and crackles. ABDOMEN: Soft, nontender. LEGS: No edema. NERVOUS SYSTEM: Nonfocal. LABORATORY DATA: Reviewed. Chest x-ray reviewed personally. ASSESSMENT: 1. Shortness of breath, possible congestive heart failure acute exacerbation. 2. Acute COVID-19 infection with bilateral pneumonia. 3. Troponin 0.310. Possible acute [id number] elevation myocardial infarction. 4. History of hyperlipidemia. 5. Hypertension. 6. History of degenerative joint disease. 7. History of migraine. 8. History of coronary artery disease, coronary artery bypass grafting. RECOMMENDATIONS AND DISCUSSION: This is an 79-year-old woman, who presented with multiple complex medical issues, we will monitor the patient closely. I would recommend a small dose of Lasix. Cardiology, Infectious Disease evaluations. Pulmonary consultation also has been sought. Prognosis guarded because of multiple complex medical issues. Further recommendations to follow. See orders for further details. Resume the home medications. DVT prophylaxis. MMODL / IJN: [id number] /
[2024-04-22] MEDS: PSYLLIUM HUSK 100% 6 GM PACKET PO SCH (08:13)
[2024-04-22] MEDS: CLOPIDOGREL 75 MG TAB PO SCH (08:13)
[2024-04-22] MEDS: ASPIRIN 325 MG TAB PO SCH (08:13)
[2024-04-22] MEDS: PANTOPRAZOLE 40 MG TABLET PO SCH (08:14)
[2024-04-22] MEDS: CALCIUM CARB-VIT D 500 MG-5 MCG TAB PO SCH (08:14)
[2024-04-22] MEDS: ASCORBIC ACID 500 MG TAB PO SCH (08:14)
[2024-04-22] MEDS: METOPROLOL TARTRATE 12.5 MG TAB PO SCH (08:14)
[2024-04-22] MEDS: ISOSORBIDE MONONITRATE ER 30 MG TAB.ER.24H PO SCH (08:15)
[2024-04-22] MEDS: ZINC SULFATE 220 MG CAP PO SCH (08:15)
--- NOTE | 2024-04-22 11:15 | P.CRDCN ---
History of Present Illness History of present illness: HISTORY OF PRESENT ILLNESS: This is a 79-year-old female with a past medical history significant for coronary artery disease with previous CABG, valvular heart disease, carotid stenosis, paroxysmal atrial fibrillation, hypertension, hyperlipidemia, CVA, and nicotine dependence. Patient follows in the office with Dr. Cespedes. We have been asked to see the patient in consultation for CHF. Patient examined at the bedside in the emergency room. Patient states that she has been feeling short of breath for the past few days. She also reports having a cough. She denies having any chest pain or pressure. Patient presented to the hospital for further evaluation. Patient was found to have COVID-19. Additionally patient was found to be in acute CHF and was started on IV Lasix. She continues to be short of breath and has a frequent cough at the time of examination. DIAGNOSTICS: - EKG reveals sinus bradycardia with left bundle branch block - Chest xray CHF with pulmonary vascular congestion. Small left and trace right pleural effusions with adjacent atelectasis and/or consolidation - Laboratory data: WBC 6.9. Hemoglobin 10.0. Platelet count 185. D-dimer 0.40. Sodium 138. Potassium 4.3. BUN 12. Creatinine 0.68. Troponin 0.310. 0.325. 0.283. proBNP 29,900. - Current home cardiac medications include Plavix 75 mg daily, Lasix 40 mg twice a day, Imdur 30 mg daily, metoprolol to tartrate 12.5 mg daily, atorvastatin 80 mg at night, Eliquis 2.5 mg twice a day. - Most recent echocardiogram obtained in May 2023 revealed ejection fraction 50 to 55%, moderate aortic regurgitation. Aortic stenosis with peak gradient 27 mmHg and mean gradient 16 mmHg, mild tricuspid regurgitation, mild MR - Cardiac catheterization history: May 2023 revealing severe triple-vessel coronary artery disease. Patent BENSON to LAD. Patent SVG to OM. Patent SVG to RCA with intermediate disease involving PLV branch of the RCA documented to be nonflow limiting by Doppler wire. Normal left-sided filling pressures. REVIEW OF SYSTEMS: At the time of my exam: CONSTITUTIONAL: Denies fever or chills. HEENT: Denies blurred vision, vision changes, or eye pain. Denies hemoptysis CARDIOVASCULAR: Denies chest pain. Denies orthopnea. Denies PND. Denies palpitations RESPIRATORY: Denies shortness of breath. GASTROINTESTINAL: Denies abdominal pain. Denies nausea or vomiting. HEMATOLOGIC: Denies bleeding disorders. GENITOURINARY: Denies any blood in urine. SKIN: Denies pruitis. Denies rash. PHYSICAL EXAM: VITAL SIGNS: Reviewed. GENERAL: Well-developed in no acute distress. HEENT: Head is normocephalic. Pupils are equal, round. Sclerae anicteric. Mucous membranes of the mouth are moist. Neck supple. No JVD or thyromegaly LUNGS: Respirations even and unlabored. Lungs with crackles bilaterally and frequent coughing noted HEART: Regular rate and rhythm. S1 and S2 heard. Systolic murmur noted ABDOMEN: Soft. Nondistended. Nontender. EXTREMITIES: Normal range of motion. No clubbing or cyanosis. Peripheral pulses intact. Trace lower extremity edema NEUROLOGIC: Awake and alert. Oriented x 3. ASSESSMENT: Shortness of breath Acute on chronic heart failure with preserved EF, 50 to 55% Acute COVID-19 Elevated troponins, flat, type II [place] secondary to oxygen supply/demand mismatch Coronary artery disease with previous four-vessel CABG, 2011 Valvular heart disease including moderate AI and mild Paroxysmal atrial fibrillation History of hypertension History of hyperlipidemia History of CVA Nicotine dependence PLAN: An acute coronary event has been ruled out Obtain 2D echo to assess cardiac structure and function Resume home cardiac medications Add Farxiga 10 mg daily Continue IV Lasix 40 mg every 12 hours Daily weights, accurate intake and output, and monitoring of kidney function Smoking cessation recommended Further recommendations pending patient course Nurse practitioner note has been reviewed by physician. Signing provider agrees with the documented findings, assessment, and plan of care documented by [employer] as a scribe. 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 Last Myocardial Infarction Date:: 10/2011 History of Any Multi-Drug Resistant Organisms: None Reported Past Surgical History: Appendectomy, Back Surgery, Coronary Bypass/CABG, Heart Catheterization, Hysterectomy, Orthopedic Surgery Additional Past Surgical History / Comment(s): rt knee surgery, chris cataracts, heart cath (05/2013)-pt not sure if any stents, CABG 2011, COLONOSCOPY, Past Anesthesia/Blood Transfusion Reactions: Previous Problems w/ Anesthesia Additional Past Anesthesia/Blood Transfusion Reaction / Comment(s): WENT INTO CARDIAC ARREST IN RECOVERY AFTER BACK SURGERY 2015. States has never had any problems with anesthesia before. States to her knowledge she does not know why. Past Psychological History: No Psychological Hx Reported Smoking Status: Current every day smoker Past Alcohol Use History: Rare Past Drug Use History: None Reported - Past Family History Brother(s) Family Medical History: Cancer Medications and Allergies Home Medications Medication Instructions Recorded Confirmed Type Vit C/E/Zn/Coppr/Lutein/Zeaxan 1 cap PO BID 12/02/15 04/21/24 History [Preservision Areds 2 Softgel] Clopidogrel [Plavix] 75 mg PO DAILY 12/05/15 04/21/24 History Calcium Carb-Vit D 500Mg-5Mcg 2 tab PO DAILY 03/03/17 04/21/24 History [Oscal 500+D 5 Mcg (200 Iu)] traZODone HCL 300 mg PO HS 03/03/17 04/21/24 History Isosorbide Mononitrate [Isosorbide 30 mg PO DAILY 05/12/18 04/21/24 History Mononitrate ER] HYDROcodone/APAP 10-325MG [[place] 1 tab PO TID 06/09/23 04/21/24 History 10-325] Metoprolol Tartrate [Lopressor] 12.5 mg PO DAILY 06/09/23 04/21/24 History Omeprazole 40 mg PO DAILY 06/09/23 04/21/24 History Nitroglycerin Sl Tabs [Nitrostat] 0.4 mg SUBLINGUAL Q5M PRN #25 tab 06/12/23 04/21/24 Rx Apixaban [Eliquis] 2.5 mg PO BID 04/21/24 04/21/24 History Atorvastatin [Lipitor] 80 mg PO W/SUPPER 04/21/24 04/21/24 History Furosemide [Lasix] 40 mg PO BID 04/21/24 04/21/24 History PARoxetine [Paxil] 10 mg PO HS 04/21/24 04/21/24 History Psyllium Husk (with Sugar) 1 scoop PO DAILY 04/21/24 04/21/24 History [Metamucil Powder] Allergies Allergy/AdvReac Type Severity Reaction Status Date / Time latex Allergy Rash/Hives Verified 04/21/24 14:12 Physical Exam Vitals: Vital Signs Temp Pulse Pulse Resp BP BP Pulse Ox 04/22/24 08:00 63 18 144/67 04/22/24 03:26 50 L 16 116/51 98 04/22/24 00:00 53 L 16 127/56 91 L 04/21/24 19:50 58 L 16 123/87 94 L 04/21/24 17:12 97.8 F 54 L 17 127/57 92 L 04/21/24 15:01 98.3 F 64 19 110/57 100 04/21/24 13:23 59 L 19 93 L 04/21/24 12:07 56 L 04/21/24 11:58 56 L 101/82 95 Intake and Output 04/21/24 04/22/24 04/22/24 22:59 06:59 14:59 Output Total 300 Balance -300 Output: Urine 300 Other: Voiding Method External Catheter External Catheter # Voids 1 Results 04/21/24 12:42 04/21/24 12:42 Cardiac Enzymes 04/21/24 04/21/24 04/21/24 Range/Units 12:42 12:42 16:29 AST 37 H (14-36) U/L Troponin I 0.310 H* 0.325 H* (0.000-0.034) ng/mL 04/21/24 Range/Units 19:09 AST (14-36) U/L Troponin I 0.283 H* (0.000-0.034) ng/mL Coagulation 04/21/24 Range/Units 12:42 PT 11.7 (10.0-12.5) sec APTT 28.0 (22.0-30.0) sec CBC 04/21/24 Range/Units 12:42 WBC 6.9 (3.8-10.6) k/uL RBC 3.18 L (3.80-5.40) m/uL Hgb 10.0 L (11.4-16.0) gm/dL Hct 31.2 L (34.0-46.0) % Plt Count 181 (150-450) k/uL Comprehensive Metabolic Panel 04/21/24 Range/Units 12:42 Sodium 138 (137-145) mmol/L Potassium 4.3 (3.5-5.1) mmol/L Chloride 110 H (98-107) mmol/L Carbon Dioxide 26 (22-30) mmol/L BUN 12 (7-17) mg/dL Creatinine 0.68 (0.52-1.04) mg/dL Glucose 122 H (74-99) mg/dL Calcium 8.5 (8.4-10.2) mg/dL AST 37 H (14-36) U/L ALT 16 (4-34) U/L Alkaline Phosphatase 36 L (38-126) U/L Total Protein 5.7 L (6.3-8.2) g/dL Albumin 3.2 L (3.5-5.0) g/dL Current Medications Generic Name Dose Route Start Last Admin Trade Name Freq PRN Reason Stop Dose Admin Hydrocodone Bitart/Acetaminophen 1 each 04/21/24 16:00 04/22/24 08:14 Hydrocodone/Apap 10-325mg 1 Each Tab PO 1 each TID OMAIRA Administration Apixaban 2.5 mg 04/21/24 21:00 04/22/24 08:14 Apixaban 2.5 Mg Tablet PO 2.5 mg BID OMAIRA Administration Protocol Ascorbic Acid 1,000 mg 04/22/24 09:00 04/22/24 08:14 Ascorbic Acid 500 Mg Tab PO 1,000 mg DAILY OMAIRA Administration Atorvastatin Calcium 80 mg 04/21/24 17:30 04/21/24 15:26 Atorvastatin 80 Mg Tab PO 80 mg W/SUPPER OMAIRA Administration Calcium Carbonate 2 each 04/22/24 09:00 04/22/24 08:14 Calcium Carb-Vit D 500 Mg-5 Mcg Tab PO 2 each DAILY OMAIRA Administration Clopidogrel Bisulfate 75 mg 04/22/24 09:00 04/22/24 08:13 Clopidogrel 75 Mg Tab PO 75 mg DAILY OMAIRA Administration Dexamethasone Sodium Phosphate 6 mg 04/21/24 21:00 04/22/24 08:13 Dexamethasone Sod Phosphate 10 Mg/Ml 1 Ml Vial IV 6 mg DAILY OMAIRA Administration Furosemide 40 mg 04/21/24 15:00 04/22/24 03:25 Furosemide 10 Mg/Ml 4 Ml Vial IV 40 mg Q12H OMAIRA Administration Ceftriaxone Sodium 1 gm/ 50 mls @ 100 mls/hr 04/21/24 16:00 04/22/24 09:02 Sodium Chloride IVPB 100 mls/hr Q24HR OMAIRA Administration Protocol Isosorbide Mononitrate 30 mg 04/22/24 09:00 04/22/24 08:15 Isosorbide Mononitrate Er 30 Mg Tab.Er.24h PO 30 mg DAILY OMAIRA Administration Metoprolol Tartrate 12.5 mg 04/22/24 09:00 04/22/24 08:14 Metoprolol Tartrate 12.5 Mg Tab PO 12.5 mg DAILY OMAIRA Administration Multivitamins/Minerals 1 each 04/21/24 21:00 04/22/24 08:13 Vit A,C & B-Cgxgmy-Tkxcsafl 1 Each Tab PO 1 each BID OMARIA Administration Nitroglycerin 0.4 mg 04/21/24 14:25 Nitroglycerin Sl Tabs 0.4 Mg Tab SUBLINGUAL Q5M PRN Chest Pain Pantoprazole Sodium 40 mg 04/22/24 07:30 04/22/24 08:14 Pantoprazole 40 Mg Tablet PO 40 mg [id number] OMAIRA Administration Paroxetine HCl 10 mg 04/21/24 21:00 04/21/24 20:54 Paroxetine 10 Mg Tab PO 10 mg HS OMAIRA Administration Psyllium Hydrophilic Mucilloid 6 gm 04/22/24 09:00 04/22/24 08:13 Psyllium Husk 100% 6 Gm Packet PO 6 gm DAILY OMAIRA Administration Trazodone HCl 300 mg 04/21/24 21:00 04/21/24 20:54 Trazodone Hcl 100 Mg Tab PO 300 mg HS OMAIRA Administration Zinc Sulfate 220 mg 04/22/24 09:00 04/22/24 08:15 Zinc Sulfate 220 Mg Cap PO 220 mg DAILY OMAIRA Administration Intake and Output 04/21/24 04/22/24 04/22/24 22:59 06:59 14:59 Output Total 300 Balance -300 Output: Urine 300 Other: Voiding Method External Catheter External Catheter # Voids 1 04/21/24 12:42 04/21/24 12:42
[2024-04-22 14:15] VITALS: BMI 18.8
--- NOTE | 2024-04-22 15:02 | XR ---
EXAMINATION TYPE: XR chest 1V portable DATE OF EXAM: 04/22/2024 2:29 PM COMPARISON: Chest radiographs from 04/21/2024 CLINICAL INDICATION: Female, 79 years old with history of covid; [facility] TECHNIQUE: XR chest 1V portable Frontal view of the chest. FINDINGS: Lungs/Pleura: No evidence of focal consolidation or pneumothorax. Blunting of the costophrenic angles is present. Pulmonary vascularity: Unremarkable. Heart/mediastinum: Cardiomediastinal silhouette is unremarkable. Musculoskeletal: No acute osseous pathology. Midline sternotomy wires are noted. IMPRESSION: Subtle scattered opacities which may represent an atypical pneumonia. Correlate for covid 19. Bilateral trace pleural effusions. [facility], , 04/22/2024 3:00 PM
--- NOTE | 2024-04-22 16:04 | P.CNPUL ---
History of Present Illness Consult date: 04/22/24 Requesting physician: Evans Marc Reason for consult: dyspnea, abnormal CXR/CT Chief complaint: Shortness of breath, cough, congestion History of present illness: This is a pleasant 79-year-old female patient with a known history of atrial fibrillation anticoagulated with Eliquis, hyperlipidemia, hypertension, diastolic congestive heart failure, valvular heart disease scented here to the emergency room yesterday with a 3-day history of increasing shortness of breath, cough and congestion. Had productive cough with yellow sputum. She was having some chest discomfort mostly with coughing. X-ray revealed subtle scattered opacities suggestive of atypical pneumonia. Bilateral trace pleural effusions. Count 6.9. Hemoglobin 10.0. Platelets 181. D-dimer 0.40. Sodium 138. Potassium 4.3. Bicarb 26. BUN 12. Creatinine 0.68. Glucose 122. AST 37. ALT 16. Troponin 0.310, 0.325, 0.283. proBNP 29,900. Procalcitonin negative at 0.10. Influenza screen negative. RSV screen negative. COVID-19 screen positive. She is seen today in consultation in the emergency department. She is currently sitting up on a stretcher. Awake and alert in no acute distress. She is maintaining O2 saturations in the 90s on 3 L/min per nasal cannula. She does have a loose nonproductive cough. No fever or chills. No hemoptysis. Review of Systems REVIEW OF SYSTEMS: CONSTITUTIONAL: Denies any recent significant weight loss or weight gain. EYES: Denies change in vision. EARS, NOSE, MOUTH, THROAT: Denies headaches, denies sore throat. CARDIOVASCULAR: Positive for chest pain, no palpitations or syncopal episodes. RESPIRATORY: Positive for shortness of breath, cough, congestion no hemoptysis. GASTROINTESTINAL: Denies change in appetite, denies abdominal pain GENITOURINARY: Denies hematuria, denies infections. MUSKULOSKELETAL: Denies pain, denies swelling. INTEGUMENTARY: Denies rash, denies eczema. NEUROLOGICAL: Denies recent memory loss, no recent seizure activity. PSYCHIATRIC: Denies anxiety, denies depression. HEMATOLOGIC/LYMPHATIC: Denies anemia, denies enlarged lymph nodes. 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 Last Myocardial Infarction Date:: 10/2011 History of Any Multi-Drug Resistant Organisms: None Reported Past Surgical History: Appendectomy, Back Surgery, Coronary Bypass/CABG, Heart Catheterization, Hysterectomy, Orthopedic Surgery Additional Past Surgical History / Comment(s): rt knee surgery, chris cataracts, heart cath (05/2013)-pt not sure if any stents, CABG 2011, COLONOSCOPY, Past Anesthesia/Blood Transfusion Reactions: Previous Problems w/ Anesthesia Additional Past Anesthesia/Blood Transfusion Reaction / Comment(s): WENT INTO CARDIAC ARREST IN [place]ERY AFTER BACK SURGERY 2015. States has never had any problems with anesthesia before. States to her knowledge she does not know why. Past Psychological History: No Psychological Hx Reported Smoking Status: Current every day smoker Past Alcohol Use History: Rare Past Drug Use History: None Reported - Past Family History Brother(s) Family Medical History: Cancer Medications and Allergies Home Medications Medication Instructions Recorded Confirmed Type Vit C/E/Zn/Coppr/Lutein/Zeaxan 1 cap PO BID 12/02/15 04/21/24 History [Preservision Areds 2 Softgel] Clopidogrel [Plavix] 75 mg PO DAILY 12/05/15 04/21/24 History Calcium Carb-Vit D 500Mg-5Mcg 2 tab PO DAILY 03/03/17 04/21/24 History [Oscal 500+D 5 Mcg (200 Iu)] traZODone HCL 300 mg PO HS 03/03/17 04/21/24 History Isosorbide Mononitrate [Isosorbide 30 mg PO DAILY 05/12/18 04/21/24 History Mononitrate ER] HYDROcodone/APAP 10-325MG [[place] 1 tab PO TID 06/09/23 04/21/24 History 10-325] Metoprolol Tartrate [Lopressor] 12.5 mg PO DAILY 06/09/23 04/21/24 History Omeprazole 40 mg PO DAILY 06/09/23 04/21/24 History Nitroglycerin Sl Tabs [Nitrostat] 0.4 mg SUBLINGUAL Q5M PRN #25 tab 06/12/23 04/21/24 Rx Apixaban [Eliquis] 2.5 mg PO BID 04/21/24 04/21/24 History Atorvastatin [Lipitor] 80 mg PO W/SUPPER 04/21/24 04/21/24 History Furosemide [Lasix] 40 mg PO BID 04/21/24 04/21/24 History PARoxetine [Paxil] 10 mg PO HS 04/21/24 04/21/24 History Psyllium Husk (with Sugar) 1 scoop PO DAILY 04/21/24 04/21/24 History [Metamucil Powder] Allergies Allergy/AdvReac Type Severity Reaction Status Date / Time latex Allergy Rash/Hives Verified 04/21/24 14:12 Physical Exam Vitals: Vital Signs Temp Pulse Pulse Resp BP BP Pulse Ox 04/22/24 12:00 63 20 107/72 99 04/22/24 08:00 63 18 144/67 04/22/24 03:26 50 L 16 116/51 98 04/22/24 00:00 53 L 16 127/56 91 L 04/21/24 19:50 58 L 16 123/87 94 L 04/21/24 17:12 97.8 F 54 L 17 127/57 92 L Intake and Output 04/22/24 04/22/24 04/22/24 06:59 14:59 22:59 Output Total 300 Balance -300 Output: Urine 300 Other: Voiding Method External Catheter # Voids 1 Weight 49.895 kg GENERAL EXAM: Alert, pleasant 79-year-old female, on 3 L nasal cannula, fairly comfortable in no apparent distress. HEAD: Normocephalic. EYES: Normal reaction of pupils, equal size. NOSE: Clear with pink turbinates. THROAT: No erythema or exudates. NECK: No masses, no JVD. CHEST: No chest wall deformity. LUNGS: Equal air entry with bilateral scattered rhonchi. CVS: S1 and S2 normal with an audible murmur, regular rhythm. ABDOMEN: No hepatosplenomegaly, normal bowel sounds, no guarding or rigidity. SPINE: No scoliosis or deformity SKIN: No rashes CENTRAL NERVOUS SYSTEM: No focal deficits, tone is normal in all 4 extremities. EXTREMITIES: There is no peripheral edema. No clubbing, no cyanosis. Peripheral pulses are intact. Results - Laboratory Findings CBC and BMP: 04/21/24 12:42 04/21/24 12:42 PT/INR, D-dimer PT 11.7 sec (10.0-12.5) 04/21/24 12:42 INR 1.1 (<1.2) 04/21/24 12:42 D-Dimer 0.40 mg/L FEU (<0.60) 04/21/24 12:42 Abnormal lab findings: Abnormal Labs 04/21/24 04/21/24 04/21/24 12:42 12:42 12:42 RBC 3.18 L Hgb 10.0 L Hct 31.2 L Lymphocytes # 0.7 L Chloride 110 H Glucose 122 H AST 37 H Alkaline Phosphatase 36 L Troponin I 0.310 H* Total Protein 5.7 L Albumin 3.2 L SARS-CoV-2 (PCR) 04/21/24 04/21/24 04/21/24 12:42 16:29 19:09 RBC Hgb Hct Lymphocytes # Chloride Glucose AST Alkaline Phosphatase Troponin I 0.325 H* 0.283 H* Total Protein Albumin SARS-CoV-2 (PCR) Detected A - Diagnostic Findings Chest x-ray: image reviewed Assessment and Plan Assessment: Acute hypoxemic respiratory failure secondary to an acute exacerbation of diastolic congestive heart failure and suspected COVID-19 pneumonia. Procalcitonin negative Acute COVID infection Troponin leak History of diastolic congestive heart failure History of valvular heart disease Hypertension Hyperlipidemia Paroxysmal atrial fibrillation anticoagulated with Eliquis History of depression Plan: The patient was seen and evaluated Chest x-ray, labs and medications reviewed Continue IV diuretics Anticoagulated with Eliquis Continue vitamin supplements Continue Decadron Titrate the FiO2 as tolerated We will continue to follow and make further recommendations based on her clinical status I have personally seen and examined the patient, performed the documentation and the assessment and plan as written. Number of minutes spent on the visit: 20 Dictation was produced using [employer] dictation software. Please excuse any gr ammatical, word or spelling errors.
[2024-04-23] MEDS: DAPAGLIFLOZIN PROPANEDIOL 10 MG TABLET PO SCH (09:50)
[2024-04-23] MEDS ORDERED: DIPHENOX-ATROP 2.5-0.025 MG 1 EACH TAB PO PRN (10:24)
[2024-04-23 11:28] LABS: Basophils % (A) 0 %; Eosinophils % (A) 0 %; HCT 35.4 % (34.0-46.0); HGB 11.3 gm/dL (11.4-16.0); Hypochromasia Slight; Lymphocytes # (A) 1.8 k/uL (1.0-4.8); Lymphocytes % (A) 14 %; MCH 31.4 pg (25.0-35.0); MCV 98.3 fL (80.0-100.0); Mean Platelet Volume 7.6; Monocytes # (A) 0.7 k/uL (0-1.0); Monocytes % (A) 5 %; Neutrophils # (A) 9.9 k/uL (1.3-7.7); Neutrophils % (A) 79 %; Platelet Count 191 k/uL (150-450); RBC 3.61 m/uL (3.80-5.40); RDW 13.4 % (11.5-15.5); WBC 12.4 k/uL (3.8-10.6)
--- NOTE | 2024-04-23 11:41 | P.PN ---
Subjective HISTORY OF PRESENT ILLNESS: This is a 79-year-old female with a past medical history significant for coronary artery disease with previous CABG, valvular heart disease, carotid stenosis, paroxysmal atrial fibrillation, hypertension, hyperlipidemia, CVA, and nicotine dependence. Patient follows in the office with Dr. Cespedes. We have been asked to see the patient in consultation for CHF. Patient examined at the bedside in the emergency room. Patient states that she has been feeling short of breath for the past few days. She also reports having a cough. She denies having any chest pain or pressure. Patient presented to the hospital for fu rther evaluation. Patient was found to have COVID-19. Additionally patient was found to be in acute CHF and was started on IV Lasix. She continues to be short of breath and has a frequent cough at the time of examination. DIAGNOSTICS: - EKG reveals sinus bradycardia with left bundle branch block - Chest xray CHF with pulmonary vascular congestion. Small left and trace right pleural effusions with adjacent atelectasis and/or consolidation - Laboratory data: WBC 6.9. Hemoglobin 10.0. Platelet count 185. D-dimer 0.40. Sodium 138. Potassium 4.3. BUN 12. Creatinine 0.68. Troponin 0.310. 0.325. 0.283. proBNP 29,900. - Current home cardiac medications include Plavix 75 mg daily, Lasix 40 mg twice a day, Imdur 30 mg daily, metoprolol to tartrate 12.5 mg daily, atorvastatin 80 mg at night, Eliquis 2.5 mg twice a day. - Most recent echocardiogram obtained in May 2023 revealed ejection fraction 50 to 55%, moderate aortic regurgitation. Aortic stenosis with peak gradient 27 mmHg and mean gradient 16 mmHg, mild tricuspid regurgitation, mild MR - Cardiac catheterization history: May 2023 revealing severe triple-vessel coronary artery disease. Patent BENSON to LAD. Patent SVG to OM. Patent SVG to RCA with intermediate disease involving PLV branch of the RCA documented to be nonflow limiting by Doppler wire. Normal left-sided filling pressures. 04/23/2024 Patient examined this morning. Patient remains in the emergency room awaiting a bed on 3 S. Patient denies chest pain or pressure. She continues to report shortness of breath and has frequent coughing. She remains on IV Lasix. Labs from this morning are currently pending. PHYSICAL EXAM: VITAL SIGNS: Reviewed. GENERAL: Well-developed in no acute distress. HEENT: Head is normocephalic. Pupils are equal, round. Sclerae anicteric. Mucous membranes of the mouth are moist. Neck supple. No JVD or thyromegaly LUNGS: Respirations even and unlabored. Lungs with crackles bilaterally and frequent coughing noted HEART: Regular rate and rhythm. S1 and S2 heard. Systolic murmur noted ABDOMEN: Soft. Nondistended. Nontender. EXTREMITIES: Normal range of motion. No clubbing or cyanosis. Peripheral pulse s intact. Trace lower extremity edema NEUROLOGIC: Awake and alert. Oriented x 3. ASSESSMENT: Shortness of breath Acute on chronic heart failure with preserved EF, 50 to 55% Acute COVID-19 Elevated troponins, flat, type II PR secondary to oxygen supply/demand mismatch Coronary artery disease with previous four-vessel CABG, 2011 Valvular heart disease including moderate AI and mild Paroxysmal atrial fibrillation History of hypertension History of hyperlipidemia History of CVA Nicotine dependence PLAN: An acute coronary event has been ruled out Obtain 2D echo to assess cardiac structure and function Continue current cardiac medications Continue IV Lasix 40 mg every 12 hours Daily weights, accurate intake and output, and monitoring of kidney function Smoking cessation recommended Further recommendations pending patient course Nurse practitioner note has been reviewed by physician. Signing provider agrees with the documented findings, assessment, and plan of care documented by SLABBER LIGHT as a scribe. Objective - Vital Signs Vital signs: Vital Signs Temp 97.6 F 04/23/24 00:18 Pulse 63 04/23/24 08:00 Resp 18 04/23/24 08:00 BP 138/68 04/23/24 08:00 Pulse Ox 97 04/23/24 05:09 FiO2 Intake & Output 04/22/24 04/23/24 04/23/24 18:59 06:59 18:59 Output Total 300 Balance -300 Weight 49.895 kg Output: Urine 300 Other: # Voids 1 - Labs CBC & Chem 7: 04/23/24 10:49 04/21/24 12:42 Labs: Abnormal Lab Results - Last 24 Hours (Table) 04/23/24 Range/Units 10:49 WBC 12.4 H (3.8-10.6) k/uL RBC 3.61 L (3.80-5.40) m/uL Hgb 11.3 L (11.4-16.0) gm/dL Neutrophils # 9.9 H (1.3-7.7) k/uL Microbiology - Last 24 Hours (Table) 04/21/24 16:51 Blood Culture - Preliminary Blood
[2024-04-23 11:44] LABS: African American GFR (CKD) >90 (>60 ml/min/1.73 sqM); Anion Gap 5 mmol/L; Blood Urea Nitrogen 21 mg/dL (7-17); Calcium 8.5 mg/dL (8.4-10.2); Carbon Dioxide 31 mmol/L (22-30); Chloride 100 mmol/L (98-107); Glucose 87 mg/dL (74-99); Magnesium 1.9 mg/dL (1.6-2.3); Non-African American GFR(CKD) 82 (>60 ml/min/1.73 sqM); Potassium 3.4 mmol/L (3.5-5.1); Sodium 136 mmol/L (137-145)
--- NOTE | 2024-04-23 12:28 | CA ---
Transthoracic Echo Report Name: Elenita Monzon Age: 79 Gender: F : 1945 Exam Date: 04/23/2024 11:15 Exam Location: [facility] Ht (in): 64 Wt (lb): 110 Ordering Physician: Jasper Sanchez DO Attending/Referring Phys: Decating Machine Operator Sagrario Laguna RDCS Procedure CPT: Indications: Heart failure Cardiac Hx: Technical Quality: Good Contrast 1: Total Dose (mL): Contrast 2: Total Dose (mL): MEASUREMENTS (Male / Female) Normal Values 2D ECHO LV Diastolic Diameter PLAX 4.9 cm 4.2 - 5.9 / 3.9 - 5.3 cm LV Systolic Diameter PLAX 3.9 cm IVS Diastolic Thickness 1.0 cm 0.6 - 1.0 / 0.6 - 0.9 cm LVPW Diastolic Thickness 1.2 cm 0.6 - 1.0 / 0.6 - 0.9 cm LV Relative Wall Thickness 0.4 RV Internal Dim ED PLAX 3.2 cm LVOT Diameter 2.2 cm LA Systolic Diameter LX 4.1 cm 3.0 - 4.0 / 2.7 - 3.8 cm LV Diastolic Volume MOD 4C 126.5 cm??? LV Systolic Volume MOD 4C 79.4 cm??? LV Ejection Fraction MOD 4C 37.2 % LV Cardiac Index MOD 4C 1792.8 cm???/min???m??? LV Diastolic Length 4C 8.3 cm LV Systolic Length 4C 7.6 cm LV Diastolic Volume MOD 2C 141.2 cm??? LV Systolic Volume MOD 2C 94.0 cm??? LV Ejection Fraction MOD 2C 33.5 % LV Cardiac Index MOD 2C 1800.8 cm???/min???m??? LV Diastolic Length 2C 9.0 cm LV Systolic Length 2C 7.8 cm LA Volume 73.0 cm??? 18 - 58 / 22 - 52 cm??? LA Volume Index 48.8 cm???/m??? 16 - 28 cm???/m??? M-MODE Aortic Root Diameter MM 2.9 cm AV Cusp Separation MM 1.3 cm DOPPLER AV Peak Velocity 373.7 cm/s AV Peak Gradient 55.9 mmHg AV Mean Velocity 237.3 cm/s AV Mean Gradient 26.3 mmHg AV Velocity Time Integral 93.2 cm AI Peak Velocity 355.3 cm/s AI Peak Gradient 50.5 mmHg AI Pressure Half Time 622.9 ms MV Area PHT 3.2 cm??? Mitral E Point Velocity 124.6 cm/s Mitral A Point Velocity 70.2 cm/s Mitral E to A Ratio 1.8 MV Deceleration Time 233.5 ms TR Peak Velocity 294.0 cm/s TR Peak Gradient 34.6 mmHg Right Ventricular Systolic Press 37.6 mmHg FINDINGS Left Ventricle Left ventricular ejection fraction is estimated at 25-30 %. Left ventricular cavity size normal. Mildly increased posterior wall thickness. Right Ventricle Normal right ventricular size. Mild pulmonary hypertension. Right Atrium Normal right atrial size. No right atrial thrombus or mass seen. Left Atrium Mildly increased left atrial diameter. Moderately increased left atrial volume. Mitral Valve Structurally normal mitral valve. Mitral annular calcification. Mild mitral regurgitation. Aortic Valve Trileaflet aortic valve. Aortic valve sclerosis. Moderate aortic stenosis with a peak gradient of 56 mmHg and a mean gradient of 26 mmHg. [id number] aortic regurgitation. Tricuspid Valve Thickening of TV. Mild tricuspid regurgitation. Pulmonic Valve Pulmonic valve not well visualized. Trace pulmonic regurgitation. Pericardium No pericardial effusion. Aorta Normal size aortic root and proximal ascending aorta. CONCLUSIONS Severe LV systolic dysfunction Moderate aortic stenosis Mild to moderate aortic regurgitation Mild mitral regurgitation We are probably underestimating the aortic stenosis Previewed by: Dr. Efrain Cancino MD (Electronically Signed) Final Date: 23 April 2024 12:27
[2024-04-23] MEDS: KETOROLAC 15 MG/ML 1 ML VIAL IVP PRN (14:38)
--- NOTE | 2024-04-23 14:46 | P.PN ---
Subjective Progress Note Date: 04/22/24 Principal diagnosis: Reason for follow-up is COVID-19 Patient is a 79-year-old female with a past medical history significant for hypertension hyperlipidemia [place] osteoarthritis, presenting to the hospital for evaluation of difficulty breathing, patient did tested positive for COVID-19 chest x-ray was mostly pulmonary vascular congestion. On today's evaluation that is 04/22/2024, patient did not have any fever and denies any chills, patient is breathing slightly comfortably on 4 L nasal cannula oxygen, patient with no chest pain or cough patient did not have any ab dominal pain nausea vomiting or any loose stools. Patient did not have any lab draw today Objective - Vital Signs Vital signs: Vital Signs Temp 97.8 F 04/21/24 17:12 Pulse 63 04/22/24 08:00 Resp 18 04/22/24 08:00 BP 144/67 04/22/24 08:00 Pulse Ox 98 04/22/24 03:26 FiO2 Intake & Output 04/21/24 04/22/24 04/22/24 18:59 06:59 18:59 Output Total 300 Balance -300 Weight 49.895 kg Output: Urine 300 Other: Voiding Method External Catheter # Voids 1 - Exam GENERAL DESCRIPTION: An elderly female lying in bed in no distress RESPIRATORY SYSTEM: Unlabored breathing , decreased intensity of breath sounds HEART: S1 S2 regular rate and rhythm , ABDOMEN: Soft , no tenderness EXTREMITIES: No edema feet - Labs CBC & Chem 7: 04/23/24 10:49 04/23/24 10:49 Labs: Abnormal Lab Results - Last 24 Hours (Table) 04/21/24 04/21/24 04/21/24 Range/Units 12:42 12:42 12:42 RBC 3.18 L (3.80-5.40) m/uL Hgb 10.0 L (11.4-16.0) gm/dL Hct 31.2 L (34.0-46.0) % Lymphocytes # 0.7 L (1.0-4.8) k/uL Chloride 110 H (98-107) mmol/L Glucose 122 H (74-99) mg/dL AST 37 H (14-36) U/L Alkaline Phosphatase 36 L (38-126) U/L Troponin I 0.310 H* (0.000-0.034) ng/mL Total Protein 5.7 L (6.3-8.2) g/dL Albumin 3.2 L (3.5-5.0) g/dL SARS-CoV-2 (PCR) (Not Detectd) 04/21/24 04/21/24 04/21/24 Range/Units 12:42 16:29 19:09 RBC (3.80-5.40) m/uL Hgb (11.4-16.0) gm/dL Hct (34.0-46.0) % Lymphocytes # (1.0-4.8) k/uL Chloride (98-107) mmol/L Glucose (74-99) mg/dL AST (14-36) U/L Alkaline Phosphatase (38-126) U/L Troponin I 0.325 H* 0.283 H* (0.000-0.034) ng/mL Total Protein (6.3-8.2) g/dL Albumin (3.5-5.0) g/dL SARS-CoV-2 (PCR) Detected A (Not Detectd) Assessment and Plan (1) COVID-19 Current Visit: Yes Status: Acute Code(s): U07.1 - COVID-19 SNOMED Code(s): 436686559 Plan: 1patient presented to hospital with increasing shortness of breath cough bring up some yellow sputum in this patient did have bibasilar atelectasis versus infiltrate did have hypoxemia tested positive for COVID-19 possible COVID-19 pneumonia secondary bacterial pneumonia less likely but not entirely excluded 2-sputum has not been obtained, currently waiting for CRP and procalcitonin level 3-patient to continue with dexamethasone along with with Eliquis and zinc and ascorbic acid and droplet isolation 4-droplet isolation We will follow on clinical condition and cultures to further adjust medication if needed Thank you for this consultation we will follow the patient along with you Dictation was produced using [employer] dictation software. please excuse any grammatical, word or spelling errors. Time with Patient: Less than 30
--- NOTE | 2024-04-23 14:47 | P.PN ---
Subjective Progress Note Date: 04/23/24 Principal diagnosis: Reason for follow-up is COVID-19 Patient is a 79-year-old female with a past medical history significant for hypertension hyperlipidemia [place] osteoarthritis, presenting to the hospital for evaluation of difficulty breathing, patient did tested positive for COVID-19 chest x-ray was mostly pulmonary vascular congestion. On today's evaluation that is 04/23/2024, Patient is afebrile patient is currently on 2 L nasal oxygen however is complaining of more shortness of breath today denies any chest pain or worsening cough no nausea vomiting abdominal pain complaining of some diarrhea. Patient white count is 12.4, creatinine 0.70 procalcitonin 0.10 Objective - Vital Signs Vital signs: Vital Signs Temp 97.6 F 04/23/24 00:18 Pulse 57 L 04/23/24 05:09 Resp 18 04/23/24 05:09 BP 134/47 04/23/24 05:09 Pulse Ox 97 04/23/24 05:09 FiO2 Intake & Output 04/22/24 04/23/24 04/23/24 18:59 06:59 18:59 Output Total 300 Balance -300 Weight 49.895 kg Output: Urine 300 Other: # Voids 1 - Exam GENERAL DESCRIPTION: An elderly female lying in bed in no distress RESPIRATORY SYSTEM: Unlabored breathing , decreased intensity of breath sounds HEART: S1 S2 regular rate and rhythm , ABDOMEN: Soft , no tenderness EXTREMITIES: No edema feet - Labs CBC & Chem 7: 04/23/24 10:49 04/23/24 10:49 Labs: Microbiology - Last 24 Hours (Table) 04/21/24 16:51 Blood Culture - Preliminary Blood Assessment and Plan (1) COVID-19 Current Visit: Yes Status: Acute Code(s): U07.1 - COVID-19 SNOMED Code(s): 984049073 Plan: 1patient presented to hospital with increasing shortness of breath cough bring up some yellow sputum in this patient did have bibasilar atelectasis versus infiltrate did have hypoxemia tested positive for COVID-19 possible COVID-19 pne umonia secondary bacterial pneumonia less likely but not entirely excluded 2-sputum has not been obtained, patient did have normal procalcitonin level 3-patient to continue with dexamethasone along with with Eliquis and zinc and ascorbic acid and droplet isolation 4-leukocytosis more likely steroid related 5diarrhea more likely antibiotic associated with negative procalcitonin discontinue Rocephin add Questran for symptomatic relief Dictation was produced using [email or web address] software. please excuse any grammatical, word or spelling errors. Time with Patient: Less than 30
--- NOTE | 2024-04-23 14:49 | P.PN ---
Subjective Progress Note Date: 04/23/24 This is a pleasant 79-year-old female patient with a known history of atrial fibrillation anticoagulated with Eliquis, hyperlipidemia, hypertension, diastolic congestive heart failure, valvular heart disease scented here to the emergency room yesterday with a 3-day history of increasing shortness of breath, cough and congestion. Had productive cough with yellow sputum. She was having some chest discomfort mostly with coughing. X-ray revealed subtle scattered opacities suggestive of atypical pneumonia. Bilateral trace pleural effusions. Count 6.9. Hemoglobin 10.0. Platelets 181. D-dimer 0.40. Sodium 138. Potassium 4.3. Bicarb 26. BUN 12. Creatinine 0.68. Glucose 122. AST 37. ALT 16. Troponin 0.310, 0.325, 0.283. proBNP 29,900. Procalcitonin negative at 0.10. Influenza screen negative. RSV screen negative. COVID-19 screen positive. She is seen today in consultation in the emergency department. She is currently sitting up on a stretcher. Awake and alert in no acute distress. She is maintaining O2 saturations in the 90s on 3 L/min per nasal cannula. She does have a loose nonproductive cough. No fever or chills. No hemoptysis. The patient is seen today April 23, 2024 in follow-up in the emergency department. She is currently sitting up in bed. Awake and alert in no acute distress. Feeling about the same today as compared to yesterday. Still with a loose cough and congestion. Maintaining good O2 saturations in the high 90s on 2 L/min per nasal cannula. She has been afebrile. Hemodynamically stable. White count 12.4. Hemoglobin 11.3. Platelets 191. Sodium 136. Potassium 3.4. Bicarb 31. BUN 21. Creatinine 0.70. She remains on ceftriaxone. Continued on Decadron. Continued on vitamin supplements. Continued on IV diuretics. Anticoagulated with Eliquis. Objective - Vital Signs Vital signs: Vital Signs Temp 97.6 F 04/23/24 00:18 Pulse 50 L 04/23/24 12:00 Resp 17 04/23/24 12:00 BP 128/72 04/23/24 12:00 Pulse Ox 98 04/23/24 12:00 FiO2 Intake & Output 04/22/24 04/23/24 04/23/24 18:59 06:59 18:59 Output Total 300 Balance -300 Weight 49.895 kg Output: Urine 300 Other: # Voids 1 - Exam GENERAL EXAM: Alert, 79-year-old female, on 2 L nasal cannula, comfortable in no apparent distress. HEAD: Normocephalic. EYES: Normal reaction of pupils, equal size. NOSE: Clear with pink turbinates. THROAT: No erythema or exudates. NECK: No masses, no JVD. CHEST: No chest wall deformity. LUNGS: Equal air entry with bilateral scattered rhonchi. CVS: S1 and S2 normal with an audible murmur, regular rhythm. ABDOMEN: No hepatosplenomegaly, normal bowel sounds, no guarding or rigidity. SPINE: No scoliosis or deformity SKIN: No rashes CENTRAL NERVOUS SYSTEM: No focal deficits, tone is normal in all 4 extremities. EXTREMITIES: There is no peripheral edema. No clubbing, no cyanosis. Peripheral pulses are intact. - Labs CBC & Chem 7: 04/23/24 10:49 04/23/24 10:49 Labs: Abnormal Lab Results - Last 24 Hours (Table) 04/23/24 04/23/24 Range/Units 10:49 10:49 WBC 12.4 H (3.8-10.6) k/uL RBC 3.61 L (3.80-5.40) m/uL Hgb 11.3 L (11.4-16.0) gm/dL Neutrophils # 9.9 H (1.3-7.7) k/uL Sodium 136 L (137-145) mmol/L Potassium 3.4 L (3.5-5.1) mmol/L Carbon Dioxide 31 H (22-30) mmol/L BUN 21 H (7-17) mg/dL Microbiology - Last 24 Hours (Table) 04/21/24 16:51 Blood Culture - Preliminary Blood Assessment and Plan Assessment: Acute hypoxemic respiratory failure secondary to an acute exacerbation of diastolic congestive heart failure and suspected COVID-19 pneumonia. Procal citonin negative Acute COVID infection Troponin leak History of diastolic congestive heart failure History of valvular heart disease Hypertension Hyperlipidemia Paroxysmal atrial fibrillation anticoagulated with Eliquis History of depression Plan: The patient was seen and evaluated Labs and medications reviewed Continue IV diuretics Anticoagulated with Eliquis Continue vitamin supplements Continue Decadron Titrate the FiO2 as tolerated We will continue to follow I have personally seen and examined the patient, performed the documentation and the assessment and plan as written. Number of minutes spent on the visit: 10 Dictation was produced using [employer] dictation software. Please excuse any grammatical, word or spelling errors.
[2024-04-23] MEDS: CHOLESTYRAMINE (WITH SUGAR) 4 GM PACKET PO SCH (18:23)
[2024-04-23] MEDS: METOPROLOL TARTRATE 12.5 MG TAB PO SCH (21:01)
--- NOTE | 2024-04-24 09:08 | XR ---
EXAMINATION TYPE: XR chest 1V portable DATE OF EXAM: 04/24/2024 7:21 AM COMPARISON: 04/22/2024 CLINICAL INDICATION: Female, 79 years old with history of chf, TECHNIQUE: XR chest 1V portable view(s) obtained. FINDINGS: The heart size is normal. The pulmonary vasculature is upper limits for normal. Mild infiltrate may be developing along the right diaphragm. Mild nonspecific increased lung markings are due to the upper lung quintana. Correlate for volume overload. IMPRESSION: 1. There may be some mild developing volume overload. 2. Bibasilar infiltrates and/or small effusions. [facility], , 04/24/2024 9:06 AM
--- NOTE | 2024-04-24 09:08 | PN ---
PROGRESS NOTE DATE OF SERVICE: 04/22/2024 SUBJECTIVE: This 79-year-old woman was admitted with acute COVID-19 infection as well as bilateral interstitial pneumonia, also has some shortness of breath. Troponin is mildly elevated. The patient also had acute on chronic CHF also. The most recent chest x- ray, which I reviewed personally showed blunting of the left pleural space. PAST MEDICAL HISTORY: Reviewed. REVIEW OF SYSTEMS: A 14-point review of systems is negative except as mentioned earlier. CURRENT MEDICATIONS: Reviewed. PHYSICAL EXAMINATION: VITAL SIGNS: Pulse 63, blood pressure 107/70, respirations 20. HEENT: Conjunctivae normal. NECK: No carotid bruit. CARDIOVASCULAR: S1, S2. RESPIRATIONS: Few scattered rhonchi. ABDOMEN: Soft. NERVOUS SYSTEM: Nonfocal. LABORATORY DATA: Reviewed. ASSESSMENT: 1. Shortness of breath, possible congestive heart failure acute exacerbation, acute on chronic diastolic dysfunction, ejection fraction 55%. 2. Acute COVID-19 infection with bilateral pneumonia, possibly. 3. Troponin 0.310, possible acute ptd-SX-jnycsec-elevation myocardial infarction. 4. History of hyperlipidemia. 5. Hypertension. 6. History of degenerative joint disease. 7. History of migraine. 8. History of coronary artery disease, coronary artery bypass graft. RECOMMENDATIONS AND DISCUSSION: To continue current management plan and to continue with current medications. Closely follow with multiple consultants. I would continue with apixaban, continue with the zinc, closely with Infectious Disease. Repeat labs. Guarded prognosis because of multiple complex medical issues and further recommendations to follow. Prognosis maybe guarded in this elderly individual with multiple complex medical issues as mentioned earlier. MMODL / IJN: [id number] /
[2024-04-24 11:18] LABS: Basophils % (A) 0 %; Eosinophils # (A) 0.1 k/uL (0-0.7); Eosinophils % (A) 1 %; HCT 35.2 % (34.0-46.0); HGB 11.4 gm/dL (11.4-16.0); Lymphocytes # (A) 0.8 k/uL (1.0-4.8); Lymphocytes % (A) 8 %; MCH 31.9 pg (25.0-35.0); MCHC 32.4 g/dL (31.0-37.0); MCV 98.5 fL (80.0-100.0); Mean Platelet Volume 7.9; Monocytes # (A) 0.3 k/uL (0-1.0); Monocytes % (A) 3 %; Neutrophils # (A) 8.6 k/uL (1.3-7.7); Neutrophils % (A) 88 %; Platelet Count 178 k/uL (150-450); RBC 3.57 m/uL (3.80-5.40); RDW 13.9 % (11.5-15.5); WBC 9.8 k/uL (3.8-10.6)
[2024-04-24 11:50] LABS: African American GFR (CKD) >90 (>60 ml/min/1.73 sqM); Anion Gap 3 mmol/L; Blood Urea Nitrogen 18 mg/dL (7-17); Calcium 8.8 mg/dL (8.4-10.2); Carbon Dioxide 34 mmol/L (22-30); Chloride 102 mmol/L (98-107); Glucose 91 mg/dL (74-99); Non-African American GFR(CKD) 78 (>60 ml/min/1.73 sqM); Potassium 3.9 mmol/L (3.5-5.1); Sodium 139 mmol/L (137-145)
--- NOTE | 2024-04-24 12:39 | P.PN ---
Subjective Progress Note Date: 04/24/24 This is a 79-year-old female with a past medical history significant for coronary artery disease with previous CABG, valvular heart disease, carotid stenosis, paroxysmal atrial fibrillation, hypertension, hyperlipidemia, CVA, and nicotine dependence. Patient follows in the office with Dr. Cespedes. We have been asked to see the patient in consultation for CHF. Patient examined at the bedside in the emergency room. Patient states that she has been feeling short of breath for the past few days. She also reports having a cough. She denies having any chest pain or pressure. Patient presented to the hospital for further evaluation. Patient was found to have COVID-19. Additionally patient was found to be in acute CHF and was started on IV Lasix. She continues to be short of breath and has a frequent cough at the time of examination. DIAGNOSTICS: - EKG reveals sinus bradycardia with left bundle branch block - Chest xray CHF with pulmonary vascular congestion. Small left and trace right pleural effusions with adjacent atelectasis and/or consolidation - Laboratory data: WBC 6.9. Hemoglobin 10.0. Platelet count 185. D-dimer 0.40. Sodium 138. Potassium 4.3. BUN 12. Creatinine 0.68. Troponin 0.310. 0.325. 0.283. proBNP 29,900. - Current home cardiac medications include Plavix 75 mg daily, Lasix 40 mg twice a day, Imdur 30 mg daily, metoprolol to tartrate 12.5 mg daily, atorvastatin 80 mg at night, Eliquis 2.5 mg twice a day. - Most recent echocardiogram obtained in May 2023 revealed ejection fraction 50 to 55%, moderate aortic regurgitation. Aortic stenosis with peak gradient 27 mmHg and mean gradient 16 mmHg, mild tricuspid regurgitation, mild MR - Cardiac catheterization history: May 2023 revealing severe triple-vessel coronary artery disease. Patent BENSON to LAD. Patent SVG to OM. Patent SVG to RCA with intermediate disease involving PLV branch of the RCA documented to be nonflow limiting by Doppler wire. Normal left-sided filling pressures. 04/24/2024 Patient was seen and examined resting comfortably in bed. She is overall feeling a bit better. Her breathing is mildly improved. Echocardiogram was reviewed and showed severe LV systolic dysfunction with an ejection fraction of 20 to 25%, moderate aortic stenosis with a peak gradient of 56 mmHg and a mean gradient of 26 mmHg, mild to moderate aortic regurgitation and mild MR. PHYSICAL EXAM: VITAL SIGNS: Reviewed. GENERAL: Well-developed in no acute distress. HEENT: Head is normocephalic. Pupils are equal, round. Sclerae anicteric. Mucous membranes of the mouth are moist. Neck supple. No JVD or thyromegaly LUNGS: Respirations even and unlabored. Lungs with faint crackles bilaterally wheezing throughout HEART: Regular rate and rhythm. S1 and S2 heard. Systolic murmur noted ABDOMEN: Soft. Nondistended. Nontender. EXTREMITIES: Normal range of motion. No clubbing or cyanosis. Peripheral pulses intact. Trace lower extremity edema NEUROLOGIC: Awake and alert. Oriented x 3. ASSESSMENT: Shortness of breath Acute on chronic heart failure with reduced EF, 20-25% Aortic stenosis Acute COVID-19 Elevated troponins, flat, type II [place] secondary to oxygen supply/demand mismatch Coronary artery disease with previous four-vessel CABG, 2011 Paroxysmal atrial fibrillation History of hypertension History of hyperlipidemia History of CVA Nicotine dependence PLAN: We will switch to oral Lasix Daily weights, accurate intake and output, and monitoring of kidney function Smoking cessation recommended Further recommendations pending patient course Patient will require further evaluation once acute infection has cleared to rule out low gradient low flow severe aortic stenosis. RECORDS ADMINISTRATOR note has been reviewed, I agree with a documented findings and plan of care. Patient was seen and examined. Objective - Vital Signs Vital signs: Vital Signs Temp 97.4 F L 04/24/24 11:56 Pulse 42 L 04/24/24 11:56 Resp 20 04/24/24 11:56 BP 116/57 04/24/24 11:56 Pulse Ox 99 04/24/24 11:56 FiO2 Intake & Output 04/23/24 04/24/24 04/24/24 18:59 06:59 18:59 Intake Total 200 Balance 200 Weight 49.895 kg Intake: Oral 200 Other: Voiding Method External Catheter External Catheter - Labs CBC & Chem 7: 04/24/24 10:45 04/24/24 10:45 Labs: Abnormal Lab Results - Last 24 Hours (Table) 04/24/24 04/24/24 Range/Units 10:45 10:45 RBC 3.57 L (3.80-5.40) m/uL Neutrophils # 8.6 H (1.3-7.7) k/uL Lymphocytes # 0.8 L (1.0-4.8) k/uL Carbon Dioxide 34 H (22-30) mmol/L BUN 18 H (7-17) mg/dL Microbiology - Last 24 Hours (Table) 04/21/24 16:51 Blood Culture - Preliminary Blood
--- NOTE | 2024-04-24 13:08 | PN ---
PROGRESS NOTE DATE OF SERVICE: 04/23/2024 SUBJECTIVE: This 79-year-old woman was admitted with acute COVID-19 infection with bilateral pneumonia as well as CHF acute exacerbation and closely monitored. 2D echo which I reviewed personally showed ejection fraction 25% to 30%. The patient was closely monitored at this time. PAST MEDICAL HISTORY: Reviewed. REVIEW OF SYSTEMS: A 14-point review of systems is negative except as mentioned earlier. CURRENT MEDICATIONS: Reviewed. PHYSICAL EXAMINATION: VITAL SIGNS: Pulse is 50, blood pressure 119/70, respirations 17. CHEST: A few scattered rhonchi. CARDIOVASCULAR: S1 and S2. ABDOMEN: Soft. NERVOUS SYSTEM: Nonfocal. LABORATORY DATA: Reviewed. ASSESSMENT: 1. Shortness of breath, possible congestive heart failure, acute exacerbation, acute on chronic systolic dysfunction, ejection fraction 25% to 30%. 2. Acute COVID-19 infection with bilateral pneumonia. 3. Troponin 0.310, possible acute rne-RQ-wesvjui-elevation myocardial infarction. 4. Hyperlipidemia. 5. Hypertension. 6. Multiple complex medical issues. RECOMMENDATIONS: Recommended to continue current medications and continue the diuretics. Closely follow with Pulmonary and Cardiology. Overall prognosis is guarded because of multiple complex medical problems. the patient's dexamethasone has been initiated, and the patient is also receiving zinc also. D-dimer is normal. I would recommend continue the current medications. Chest x-ray from yesterday was reviewed. Continue to monitor. Further recommendations to follow. KEVINL / MARYANN: [id number] / MTDD
--- NOTE | 2024-04-24 15:50 | P.PN ---
Subjective Progress Note Date: 04/24/24 Principal diagnosis: Coronavirus infection. This is a pleasant 79-year-old female patient with a known history of atrial fibrillation anticoagulated with Eliquis, hyperlipidemia, hypertension, diastolic congestive heart failure, valvular heart disease scented here to the emergency room yesterday with a 3-day history of increasing shortness of breath, cough and congestion. Had productive cough with yellow sputum. She was having some chest discomfort mostly with coughing. X-ray revealed subtle scattered opacities suggestive of atypical pneumonia. Bilateral trace pleural effusions. Count 6.9. Hemoglobin 10.0. Platelets 181. D-dimer 0.40. Sodium 138. Potassium 4.3. Bicarb 26. BUN 12. Creatinine 0.68. Glucose 122. AST 37. ALT 16. Troponin 0.310, 0.325, 0.283. proBNP 29,900. Procalcitonin negative at 0.10. Influenza screen negative. RSV screen negative. COVID-19 screen positive. She is seen today in consultation in the emergency department. She is currently sitting up on a stretcher. Awake and alert in no acute distress. She is maintaining O2 saturations in the 90s on 3 L/min per nasal cannula. She does have a loose nonproductive cough. No fever or chills. No hemoptysis. The patient is seen today April 23, 2024 in follow-up in the emergency department. She is currently sitting up in bed. Awake and alert in no acute distress. Feeling about the same today as compared to yesterday. Still with a loose cough and congestion. Maintaining good O2 saturations in the high 90s on 2 L/min per nasal cannula. She has been afebrile. Hemodynamically stable. White count 12.4. Hemoglobin 11.3. Platelets 191. Sodium 136. Potassium 3.4. Bicarb 31. BUN 21. Creatinine 0.70. She remains on ceftriaxone. Continued on Decadron. Continued on vitamin supplements. Continued on IV diuretics. Anticoagulated with Eliquis. Progress note dated April 24, 2024. The patient is seen today in room 372. The patient is resting comfortably in bed. She is on O2 at 4 L. She had mentioned initially she was concerned that she would be discharged home without oxygen. We explained that we would assess her prior to discharge, to determine if she needed oxygen, at rest, on exertion, or 16/11. Current labs include a white count 9.8, hemoglobin 11.4, hematocrit 35.2, and a platelet count of 178,000. Sodium 139, potassium 3.9, chlorides 102, CO2 34, BUN 18, creatinine 0.73. Glucose is 91. Calcium is 8.8. Chest x- ray shows bibasilar infiltrates, and or small effusions, with some mild fluid overload. Objective - Vital Signs Vital signs: Vital Signs Temp 97.4 F L 04/24/24 11:56 Pulse 42 L 04/24/24 11:56 Resp 20 04/24/24 11:56 BP 116/57 04/24/24 11:56 Pulse Ox 99 04/24/24 11:56 FiO2 Intake & Output 04/23/24 04/24/24 04/24/24 18:59 06:59 18:59 Intake Total 440 Balance 440 Weight 49.895 kg Intake: Oral 440 Other: Voiding Method External Catheter External Catheter - Exam No acute distress, oriented 3. Nasal O2 in place. HEENT examination is grossly unremarkable. Mucous membranes are moist. No oral lesions. Neck supple. Full range of motion. No adenopathy thyromegaly or neck vein distention. Cardiovascular examination reveals regular rhythm rate. S1-S2 normal. No S3 or S4. No discernible murmur noted. Lungs reveal bilateral scattered rhonchi. No wheezes or crackles. Breath sounds equal bilaterally. Abdomen soft bowel sounds are heard. No masses or tenderness. Extremities are intact. No cyanosis clubbing or edema. Skin is without rash or lesion. Neurologic examination is brief but nonfocal. - Labs CBC & Chem 7: 04/24/24 10:45 04/24/24 10:45 Labs: Abnormal Lab Results - Last 24 Hours (Table) 04/24/24 04/24/24 Range/Units 10:45 10:45 RBC 3.57 L (3.80-5.40) m/uL Neutrophils # 8.6 H (1.3-7.7) k/uL Lymphocytes # 0.8 L (1.0-4.8) k/uL Carbon Dioxide 34 H (22-30) mmol/L BUN 18 H (7-17) mg/dL Microbiology - Last 24 Hours (Table) 04/21/24 16:51 Blood Culture - Preliminary Blood Assessment and Plan Assessment: Acute hypoxemic respiratory failure secondary to an acute exacerbation of diastolic congestive heart failure and suspected COVID-19 pneumonia. Acute COVID infection. Troponin leak. History of diastolic congestive heart failure. History of valvular heart disease. Hypertension. Hyperlipidemia. Paroxysmal atrial fibrillation. History of depression. Plan: Plan dated April 24, 2024. The patient is seen today in room 372. She is currently on 4 L of oxygen. No IV fluids. She appears relatively comfortable. Her only concern is that she will not be discharged home without oxygen. We told her that we would assess her prior to discharge, to determine how much oxygen she needs, and when she needs to use it. She continues on IV diuretics, Eliquis, Decadron, and vitamin supplements. Labs, x-rays, and all medications are reviewed. Prognosis is guarded. Time with Patient: Less than 30
[2024-04-24] MEDS: FUROSEMIDE 40 MG TAB PO SCH (16:10)
--- NOTE | 2024-04-24 21:00 | PN ---
PROGRESS NOTE DATE OF SERVICE: 04/24/2024 This 79-year-old woman was admitted with CHF acute exacerbation, also had acute COVID- 19. Ejection fraction only 20%. PHYSICAL EXAMINATION: VITAL SIGNS: Pulse is 42, blood pressure , respirations 20. HEENT: Conjunctivae normal. CARDIOVASCULAR: S1 and S2. LUNGS: A few scattered rhonchi. ABDOMEN: Soft. LABS: Reviewed. ASSESSMENT: 1. Congestive heart failure acute exacerbation with acute on chronic systolic dysfunction, ejection fraction 25% to 30%, possible cardiomyopathy. 2. Acute COVID-19 infection with bilateral pneumonia. 3. Troponin 0.1310, possible acute dzo-QW-bunmagl-elevation myocardial infarction. 4. Hypertension. 5. Hyperlipidemia. 6. Multiple complex medical issues. RECOMMENDATIONS: Recommend to continue current management plan and treatment. Overall prognosis is extremely guarded because of multiple complex medical issues. Cardiology and Infectious Disease following the patient closely. Further recommendations to follow. CARLITA / EBONYN: [id number] /
[2024-04-25 08:31] LABS: Basophils % (A) 0 %; Eosinophils % (A) 0 %; HCT 32.9 % (34.0-46.0); HGB 10.6 gm/dL (11.4-16.0); Hypochromasia Slight; Lymphocytes # (A) 1.7 k/uL (1.0-4.8); Lymphocytes % (A) 20 %; MCH 31.2 pg (25.0-35.0); MCHC 32.1 g/dL (31.0-37.0); Mean Platelet Volume 7.6; Monocytes # (A) 0.6 k/uL (0-1.0); Monocytes % (A) 7 %; Neutrophils # (A) 5.9 k/uL (1.3-7.7); Neutrophils % (A) 71 %; Platelet Count 181 k/uL (150-450); RDW 13.3 % (11.5-15.5); WBC 8.4 k/uL (3.8-10.6)
[2024-04-25 08:43] LABS: African American GFR (CKD) 89 (>60 ml/min/1.73 sqM); Anion Gap 6 mmol/L; Blood Urea Nitrogen 24 mg/dL (7-17); Calcium 8.6 mg/dL (8.4-10.2); Carbon Dioxide 29 mmol/L (22-30); Chloride 103 mmol/L (98-107); Glucose 82 mg/dL (74-99); Non-African American GFR(CKD) 77 (>60 ml/min/1.73 sqM); Potassium 3.6 mmol/L (3.5-5.1); Sodium 138 mmol/L (137-145)
[2024-04-25] MEDS: dexAMETHasone 2 MG TAB PO SCH (09:30)
--- NOTE | 2024-04-25 11:30 | P.PN ---
Subjective Progress Note Date: 04/25/24 This is a 79-year-old female with a past medical history significant for coronary artery disease with previous CABG, valvular heart disease, carotid stenosis, paroxysmal atrial fibrillation, hypertension, hyperlipidemia, CVA, and nicotine dependence. Patient follows in the office with Dr. Cespedes. We have been asked to see the patient in consultation for CHF. Patient examined at the bedside in the emergency room. Patient states that she has been feeling short of breath for the past few days. She also reports having a cough. She denies having any chest pain or pressure. Patient presented to the hospital for further evaluation. Patient was found to have COVID-19. Additionally patient was found to be in acute CHF and was started on IV Lasix. She continues to be short of breath and has a frequent cough at the time of examination. DIAGNOSTICS: - EKG reveals sinus bradycardia with left bundle branch block - Chest xray CHF with pulmonary vascular congestion. Small left and trace right pleural effusions with adjacent atelectasis and/or consolidation - Laboratory data: WBC 6.9. Hemoglobin 10.0. Platelet count 185. D-dimer 0.40. Sodium 138. Potassium 4.3. BUN 12. Creatinine 0.68. Troponin 0.310. 0.325. 0.283. proBNP 29,900. - Current home cardiac medications include Plavix 75 mg daily, Lasix 40 mg twice a day, Imdur 30 mg daily, metoprolol to tartrate 12.5 mg daily, atorvastatin 80 mg at night, Eliquis 2.5 mg twice a day. - Most recent echocardiogram obtained in May 2023 revealed ejection fraction 50 to 55%, moderate aortic regurgitation. Aortic stenosis with peak gradient 27 mmHg and mean gradient 16 mmHg, mild tricuspid regurgitation, mild MR - Cardiac catheterization history: May 2023 revealing severe triple-vessel coronary artery disease. Patent BENSON to LAD. Patent SVG to OM. Patent SVG to RCA with intermediate disease involving PLV branch of the RCA documented to be nonflow limiting by Doppler wire. Normal left-sided filling pressures. 04/24/2024 Patient was seen and examined resting comfortably in bed. She is overall feeling a bit better. Her breathing is mildly improved. Echocardiogram was reviewed and showed severe LV systolic dysfunction with an ejection fraction of 20 to 25%, moderate aortic stenosis with a peak gradient of 56 mmHg and a mean gradient of 26 mmHg, mild to moderate aortic regurgitation and mild MR. 04/25/2024 Patient was seen and examined resting comfortably in bed. She feels her breathing is mildly improved. Continues with a cough but better. She is tolerating lisinopril. Renal function is stable. Vital signs are stable. PHYSICAL EXAM: VITAL SIGNS: Reviewed. GENERAL: Well-developed in no acute distress. HEENT: Head is normocephalic. Pupils are equal, round. Sclerae anicteric. Mucous membranes of the mouth are moist. Neck supple. No JVD or thyromegaly LUNGS: Respirations even and unlabored. Lungs with faint crackles bilaterally wheezing throughout HEART: Regular rate and rhythm. S1 and S2 heard. Systolic murmur noted ABDOMEN: Soft. Nondistended. Nontender. EXTREMITIES: Normal range of motion. No clubbing or cyanosis. Peripheral pulses intact. Trace lower extremity edema NEUROLOGIC: Awake and alert. Oriented x 3. ASSESSMENT: Shortness of breath Acute on chronic heart failure with reduced EF, 20-25% Aortic stenosis Acute COVID-19 Elevated troponins, flat, type II [place] secondary to oxygen supply/demand mismatch Coronary artery disease with previous four-vessel CABG, 2011 Paroxysmal atrial fibrillation History of hypertension History of hyperlipidemia History of CVA Nicotine dependence PLAN: Daily weights, accurate intake and output, and monitoring of kidney function Smoking cessation recommended Patient will require further evaluation once acute infection has cleared to rule out low gradient low flow severe aortic stenosis. She will follow-up with Dr. Cespedes as an outpatient. We will continue to follow the patient and provide further recommendations accordingly. PUMP TESTER note has been reviewed, I agree with a documented findings and plan of care. Patient was seen and examined. Objective - Vital Signs Vital signs: Vital Signs Temp 98 F 04/25/24 08:00 Pulse 53 L 04/25/24 08:00 Resp 18 04/25/24 08:00 BP 113/53 04/25/24 08:00 Pulse Ox 98 04/25/24 08:00 FiO2 Intake & Output 04/24/24 04/25/24 04/25/24 18:59 06:59 18:59 Intake Total 680 120 Output Total 850 Balance 680 -730 Intake: Oral 680 120 Output: Urine 850 Other: Voiding Method External Catheter External Catheter External Catheter - Labs CBC & Chem 7: 04/25/24 07:22 04/25/24 07:22 Labs: Abnormal Lab Results - Last 24 Hours (Table) 04/24/24 04/25/24 04/25/24 Range/Units 10:45 07:22 07:22 RBC 3.40 L (3.80-5.40) m/uL Hgb 10.6 L (11.4-16.0) gm/dL Hct 32.9 L (34.0-46.0) % Carbon Dioxide 34 H (22-30) mmol/L BUN 18 H 24 H (7-17) mg/dL Microbiology - Last 24 Hours (Table) 04/21/24 16:51 Blood Culture - Preliminary Blood
[2024-04-25] MEDS: NICOTINE 21MG/24HR PATCH TRANSDERM SCH (11:55)
[2024-04-25] MEDS ORDERED: MELATONIN 3 MG TABLET PO PRN (11:56)
--- NOTE | 2024-04-25 11:59 | P.PN ---
Subjective This is a pleasant 79 years old female who presents because of shortness of breath. Found to have acute CHF exacerbation with ejection fraction 25 to 30% and COVID infection without pneumonia. Also patient has evidence of moderate aortic stenosis Currently she is sitting up in bed looks comfortable, denies any chest pain. Still mildly tachypneic. Patient currently on 3 L oxygen with saturation 98%, she is not on oxygen at home Patient wants to be discharged because she does not like the food and she does not feel comfortable. Also patient has sleeping difficulties Objective - Vital Signs Vital signs: Vital Signs Temp 98 F 04/25/24 08:00 Pulse 53 L 04/25/24 08:00 Resp 18 04/25/24 08:00 BP 113/53 04/25/24 08:00 Pulse Ox 98 04/25/24 08:00 FiO2 Intake & Output 04/24/24 04/25/24 04/25/24 18:59 06:59 18:59 Intake Total 680 120 Output Total 850 Balance 680 -730 Intake: Oral 680 120 Output: Urine 850 Other: Voiding Method External Catheter External Catheter External Catheter - Exam -GENERAL: The patient is alert and oriented x3, not in any acute distress. Well developed, well nourished. Thin built HEENT: Pupils are round and equally reacting to light. EOMI. No scleral icterus. No conjunctival pallor. Normocephalic, atraumatic. No pharyngeal erythema. No thyromegaly. CARDIOVASCULAR: S1 and S2 present. No murmurs, rubs, or gallops. -PULMONARY: Chest is clear to auscultation, no wheezing , bilateral scattered crackles. Mild tachypnea ABDOMEN: Soft, nontender, nondistended, normoactive bowel sounds. No palpable organomegaly. MUSCULOSKELETAL: No joint swelling or deformity. EXTREMITIES: No cyanosis, clubbing, or pedal edema. NEUROLOGICAL: Gross neurological examination did not reveal any focal deficits. SKIN: No rashes. no petechiae. - Labs CBC & Chem 7: 04/25/24 07:22 04/25/24 07:22 Labs: Abnormal Lab Results - Last 24 Hours (Table) 04/25/24 04/25/24 Range/Units 07:22 07:22 RBC 3.40 L (3.80-5.40) m/uL Hgb 10.6 L (11.4-16.0) gm/dL Hct 32.9 L (34.0-46.0) % BUN 24 H (7-17) mg/dL Microbiology - Last 24 Hours (Table) 04/21/24 16:51 Blood Culture - Preliminary Blood Assessment and Plan Assessment: Acute CHF exacerbation on chronic heart failure with ejection fraction 25 to 30% Moderate aortic stenosis COVID infection without pneumonia Hypertension Mild calorie protein malnutrition Plan: Continue with dexamethasone which can be switched to oral dose 6 mg daily Patient continued on home dose of Eliquis 2.5 mg Continue with oral Lasix 40 mg twice daily Continue with lisinopril and metoprolol Continue with the Plavix Consult nutrition service Patient may benefit from home oxygen evaluation upon discharge Cardiology and pulmonary team consult Labs and medication were reviewed.. Continue same treatment. Continue with s ymptomatic treatment. Resume home medication. Monitor labs and vitals. DVT and GI prophylaxis. Further recommendations as per clinical course of the patient DVT prophylaxis: Eliquis GI Prophylaxis: Pepcid PT/OT: Pending Prognosis is guarded
[2024-04-25] MEDS: DOCUSATE 100 MG CAP PO PRN (14:21)
--- NOTE | 2024-04-25 15:17 | P.PN ---
Subjective Progress Note Date: 04/25/24 Principal diagnosis: Coronavirus infection. This is a pleasant 79-year-old female patient with a known history of atrial fibrillation anticoagulated with Eliquis, hyperlipidemia, hypertension, diastolic congestive heart failure, valvular heart disease scented here to the emergency room yesterday with a 3-day history of increasing shortness of breath, cough and congestion. Had productive cough with yellow sputum. She was having some chest discomfort mostly with coughing. X-ray revealed subtle scattered opacities suggestive of atypical pneumonia. Bilateral trace pleural effusions. Count 6.9. Hemoglobin 10.0. Platelets 181. D-dimer 0.40. Sodium 138. Potassium 4.3. Bicarb 26. BUN 12. Creatinine 0.68. Glucose 122. AST 37. ALT 16. Troponin 0.310, 0.325, 0.283. proBNP 29,900. Procalcitonin negative at 0.10. Influenza screen negative. RSV screen negative. COVID-19 screen positive. She is seen today in consultation in the emergency department. She is currently sitting up on a stretcher. Awake and alert in no acute distress. She is maintaining O2 saturations in the 90s on 3 L/min per nasal cannula. She does have a loose nonproductive cough. No fever or chills. No hemoptysis. The patient is seen today April 23, 2024 in follow-up in the emergency department. She is currently sitting up in bed. Awake and alert in no acute distress. Feeling about the same today as compared to yesterday. Still with a loose cough and congestion. Maintaining good O2 saturations in the high 90s on 2 L/min per nasal cannula. She has been afebrile. Hemodynamically stable. White count 12.4. Hemoglobin 11.3. Platelets 191. Sodium 136. Potassium 3.4. Bicarb 31. BUN 21. Creatinine 0.70. She remains on ceftriaxone. Continued on Decadron. Continued on vitamin supplements. Continued on IV diuretics. Anticoagulated with Eliquis. Progress note dated April 24, 2024. The patient is seen today in room 372. The patient is resting comfortably in bed. She is on O2 at 4 L. She had mentioned initially she was concerned that she would be discharged home without oxygen. We explained that we would assess her prior to discharge, to determine if she needed oxygen, at rest, on exertion, or 16/11. Current labs include a white count 9.8, hemoglobin 11.4, hematocrit 35.2, and a platelet count of 178,000. Sodium 139, potassium 3.9, chlorides 102, CO2 34, BUN 18, creatinine 0.73. Glucose is 91. Calcium is 8.8. Chest x- ray shows bibasilar infiltrates, and or small effusions, with some mild fluid overload. Progress note dated April 25, 2024. 79-year-old female seen again in room 372. Currently, the patient is resting comfortably in bed. She is alert and awake. She is on 4 L nasal cannula. She is not receiving any IV fluids. She does feel better today. She still is very concerned about whether or not she will need oxygen at home. Labs include a white count 8.4, hemoglobin 10.6, hematocrit 32.9, platelet count 181,000. Sodium 138, potassium 3.6, chlorides 103, CO2 29, BUN 24, creatinine 0.74. Glucose is 82. Blood cultures are currently negative. Chest x-ray has been reviewed. Objective - Vital Signs Vital signs: Vital Signs Temp 98 F 04/25/24 08:00 Pulse 50 L 04/25/24 12:00 Resp 18 04/25/24 12:00 BP 118/59 04/25/24 12:00 Pulse Ox 97 04/25/24 12:00 FiO2 Intake & Output 04/24/24 04/25/24 04/25/24 18:59 06:59 18:59 Intake Total 680 780 Output Total 1600 Balance 680 -820 Weight 49.895 kg Intake: Oral 680 780 Output: Urine 1600 Other: Voiding Method External Catheter External Catheter External Catheter # Bowel Movements 1 - Exam No acute distress, oriented 3. Nasal O2 in place. HEENT examination is grossly unremarkable. Mucous membranes are moist. No oral lesions. Neck supple. Full range of motion. No adenopathy thyromegaly or neck vein distention. Cardiovascular examination reveals regular rhythm rate. S1-S2 normal. No S3 or S4. No discernible murmur noted. Lungs reveal bilateral scattered rhonchi. No wheezes or crackles. Breath sounds equal bilaterally. Abdomen soft bowel sounds are heard. No masses or tenderness. Extremities are intact. No cyanosis clubbing or edema. Skin is without rash or lesion. Neurologic examination is brief but nonfocal. - Labs CBC & Chem 7: 04/25/24 07:22 04/25/24 07:22 Labs: Abnormal Lab Results - Last 24 Hours (Table) 04/25/24 04/25/24 Range/Units 07:22 07:22 RBC 3.40 L (3.80-5.40) m/uL Hgb 10.6 L (11.4-16.0) gm/dL Hct 32.9 L (34.0-46.0) % BUN 24 H (7-17) mg/dL Microbiology - Last 24 Hours (Table) 04/21/24 16:51 Blood Culture - Preliminary Blood Assessment and Plan Assessment: Acute hypoxemic respiratory failure secondary to an acute exacerbation of diastolic congestive heart failure and suspected COVID-19 pneumonia. Acute COVID infection. Troponin leak. History of diastolic congestive heart failure. History of valvular heart disease. Hypertension. Hyperlipidemia. Paroxysmal atrial fibrillation. History of depression. Plan: Plan dated April 24, 2024. The patient is seen today in room 372. She is currently on 4 L of oxygen. No IV fluids. She appears relatively comfortable. Her only concern is that she will not be discharged home without oxygen. We told her that we would assess her prior to discharge, to determine how much oxygen she needs, and when she needs to use it. She continues on IV diuretics, Eliquis, Decadron, and vitamin supplements. Labs, x-rays, and all medications are reviewed. Prognosis is guarded. Plan dated April 25, 2024. The patient is doing better. She continues on nasal O2 at 4 L. The patient is resting comfortably in bed. She is alert and awake. She denies any significant shortness of breath. Her shortness of breath occurs primarily when she gets up to go to the bathroom. She is still very concerned as to whether or not she will be discharged home on oxygen. I told her that we would assess her, prior to discharge. Labs, x-rays, medications are reviewed. We will continue to follow make recommendations along the way. Prognosis is guarded. Time with Patient: Less than 30
[2024-04-26] MEDS: lisinopriL 5 MG TAB PO SCH (08:47)
--- NOTE | 2024-04-26 11:55 | P.PN ---
Subjective Progress Note Date: 04/24/24 Principal diagnosis: Reason for follow-up is COVID-19 Patient is a 79-year-old female with a past medical history significant for hypertension hyperlipidemia [place] osteoarthritis, presenting to the hospital for evaluation of difficulty breathing, patient did tested positive for COVID-19 chest x-ray was mostly pulmonary vascular congestion. On today's evaluation that is 04/24/2024, patient has been afebrile, patient is breathing slightly comfortably and is currently on 4 L cannula oxygen, patient denies having any significant cough no chest pain, patient denies nausea vomiting or diarrhea and no abdominal pain. Patient white count 11.8, creatinine 0.73 Objective - Vital Signs Vital signs: Vital Signs Temp 97.4 F L 04/24/24 11:56 Pulse 42 L 04/24/24 11:56 Resp 20 04/24/24 11:56 BP 116/57 04/24/24 11:56 Pulse Ox 99 04/24/24 11:56 FiO2 Intake & Output 04/23/24 04/24/24 04/24/24 18:59 06:59 18:59 Intake Total 440 Balance 440 Weight 49.895 kg Intake: Oral 440 Other: Voiding Method External Catheter External Catheter - Exam GENERAL DESCRIPTION: An elderly female lying in bed in no distress RESPIRATORY SYSTEM: Unlabored breathing , decreased intensity of breath sounds HEART: S1 S2 regular rate and rhythm , ABDOMEN: Soft , no tenderness EXTREMITIES: No edema feet - Labs CBC & Chem 7: 04/25/24 07:22 04/25/24 07:22 Labs: Abnormal Lab Results - Last 24 Hours (Table) 04/24/24 04/24/24 Range/Units 10:45 10:45 RBC 3.57 L (3.80-5.40) m/uL Neutrophils # 8.6 H (1.3-7.7) k/uL Lymphocytes # 0.8 L (1.0-4.8) k/uL Carbon Dioxide 34 H (22-30) mmol/L BUN 18 H (7-17) mg/dL Microbiology - Last 24 Hours (Table) 04/21/24 16:51 Blood Culture - Preliminary Blood Assessment and Plan (1) COVID-19 Current Visit: Yes Status: Acute Code(s): U07.1 - COVID-19 SNOMED Code(s): 786492569 Plan: 1patient presented to hospital with increasing shortness of breath cough bring up some yellow sputum in this patient did have bibasilar atelectasis versus infiltrate did have hypoxemia tested positive for COVID-19 possible COVID-19 pneumonia secondary bacterial pneumonia less likely but not entirely excluded 2-sputum has not been obtained, patient did have normal procalcitonin level 3-patient to continue with dexamethasone along with with Eliquis and zinc and ascorbic acid and droplet isolation 4-leukocytosis more likely steroid related LV monitor closely 5diarrhea more likely antibiotic associated, continue with Questran for symptomatic relief Dictation was produced using [employer] dictation software. please excuse any grammatical, word or spelling errors. Time with Patient: Less than 30
--- NOTE | 2024-04-26 11:55 | P.PN ---
Subjective Progress Note Date: 04/25/24 Principal diagnosis: Reason for follow-up is COVID-19 Patient is a 79-year-old female with a past medical history significant for hypertension hyperlipidemia [place] osteoarthritis, presenting to the hospital for evaluation of difficulty breathing, patient did tested positive for COVID-19 chest x-ray was mostly pulmonary vascular congestion. On today's evaluation that is 04/25/2024, Patient is afebrile this morning patient denies having any chest pain still complaining of shortness of breath but no significant cough, the patient is currently on room air, patient denies any abdominal pain no diarrhea no nausea no vomiting. Patient white count is 8.4 creatinine 0.74 blood culture negative Objective - Vital Signs Vital signs: Vital Signs Temp 97.7 F 04/25/24 15:48 Pulse 54 L 04/25/24 15:48 Resp 17 04/25/24 15:48 BP 117/67 04/25/24 15:48 Pulse Ox 97 04/25/24 15:48 FiO2 Intake & Output 04/24/24 04/25/24 04/25/24 18:59 06:59 18:59 Intake Total 680 780 Output Total 1600 Balance 680 -820 Weight 49.895 kg Intake: Oral 680 780 Output: Urine 1600 Other: Voiding Method External Catheter External Catheter External Catheter # Bowel Movements 1 - Exam GENERAL DESCRIPTION: An elderly female lying in bed in no distress RESPIRATORY SYSTEM: Unlabored breathing , decreased intensity of breath sounds HEART: S1 S2 regular rate and rhythm , ABDOMEN: Soft , no tenderness EXTREMITIES: No edema feet - Labs CBC & Chem 7: 04/25/24 07:22 04/25/24 07:22 Labs: Abnormal Lab Results - Last 24 Hours (Table) 04/25/24 04/25/24 Range/Units 07:22 07:22 RBC 3.40 L (3.80-5.40) m/uL Hgb 10.6 L (11.4-16.0) gm/dL Hct 32.9 L (34.0-46.0) % BUN 24 H (7-17) mg/dL Microbiology - Last 24 Hours (Table) 04/21/24 16:51 Blood Culture - Preliminary Blood Assessment and Plan (1) COVID-19 Current Visit: Yes Status: Acute Code(s): U07.1 - COVID-19 SNOMED Code(s): 883797067 Plan: 1patient presented to hospital with increasing shortness of breath cough bring up some yellow sputum in this patient did have bibasilar atelectasis versus infiltrate did have hypoxemia tested positive for COVID-19 possible COVID-19 pneumonia secondary bacterial pneumonia less likely but not entirely excluded 2-sputum has not been obtained, patient did have normal procalcitonin level 3-patient to continue with dexamethasone along with with Eliquis and zinc and ascorbic acid and droplet isolation 4-leukocytosis more likely steroid related and has normalized 5diarrhea more likely antibiotic associated, did have improvement with requested to continue Dictation was produced using [employer] dictation software. please excuse any grammatical, word or spelling errors. Time with Patient: Less than 30
--- NOTE | 2024-04-26 14:07 | P.PN ---
Subjective Progress Note Date: 04/26/24 Principal diagnosis: Coronavirus infection. This is a pleasant 79-year-old female patient with a known history of atrial fibrillation anticoagulated with Eliquis, hyperlipidemia, hypertension, diastolic congestive heart failure, valvular heart disease scented here to the emergency room yesterday with a 3-day history of increasing shortness of breath, cough and congestion. Had productive cough with yellow sputum. She was having some chest discomfort mostly with coughing. X-ray revealed subtle scattered opacities suggestive of atypical pneumonia. Bilateral trace pleural effusions. Count 6.9. Hemoglobin 10.0. Platelets 181. D-dimer 0.40. Sodium 138. Potassium 4.3. Bicarb 26. BUN 12. Creatinine 0.68. Glucose 122. AST 37. ALT 16. Troponin 0.310, 0.325, 0.283. proBNP 29,900. Procalcitonin negative at 0.10. Influenza screen negative. RSV screen negative. COVID-19 screen positive. She is seen today in consultation in the emergency department. She is currently sitting up on a stretcher. Awake and alert in no acute distress. She is maintaining O2 saturations in the 90s on 3 L/min per nasal cannula. She does have a loose nonproductive cough. No fever or chills. No hemoptysis. The patient is seen today April 23, 2024 in follow-up in the emergency department. She is currently sitting up in bed. Awake and alert in no acute distress. Feeling about the same today as compared to yesterday. Still with a loose cough and congestion. Maintaining good O2 saturations in the high 90s on 2 L/min per nasal cannula. She has been afebrile. Hemodynamically stable. White count 12.4. Hemoglobin 11.3. Platelets 191. Sodium 136. Potassium 3.4. Bicarb 31. BUN 21. Creatinine 0.70. She remains on ceftriaxone. Continued on Decadron. Continued on vitamin supplements. Continued on IV diuretics. Anticoagulated with Eliquis. Progress note dated April 24, 2024. The patient is seen today in room 372. The patient is resting comfortably in bed. She is on O2 at 4 L. She had mentioned initially she was concerned that she would be discharged home without oxygen. We explained that we would assess her prior to discharge, to determine if she needed oxygen, at rest, on exertion, or 24/. Current labs include a white count 9.8, hemoglobin 11.4, hematocrit 35.2, and a platelet count of 178,000. Sodium 139, potassium 3.9, chlorides 102, CO2 34, BUN 18, creatinine 0.73. Glucose is 91. Calcium is 8.8. Chest x- ray shows bibasilar infiltrates, and or small effusions, with some mild fluid overload. Progress note dated April 25, 2024. 79-year-old female seen again in room 372. Currently, the patient is resting comfortably in bed. She is alert and awake. She is on 4 L nasal cannula. She is not receiving any IV fluids. She does feel better today. She still is very concerned about whether or not she will need oxygen at home. Labs include a white count 8.4, hemoglobin 10.6, hematocrit 32.9, platelet count 181,000. Sodium 138, potassium 3.6, chlorides 103, CO2 29, BUN 24, creatinine 0.74. Glucose is 82. Blood cultures are currently negative. Chest x-ray has been reviewed. Progress note dated April 26, 2024. 79-year-old female who is seen again in room 372. Every time we going to the room, the patient asked us whether or not she is going to be discharged home on oxygen. I told her that she likely would need oxygen on discharge, and before she is discharged, we will assess her to see whether or not she needs oxygen all the time, or only when she is exerting herself. Currently, she continues on 4 L. She is not on any IV fluids. No new labs today. Objective - Vital Signs Vital signs: Vital Signs Temp 97.6 F 04/26/24 08:00 Pulse 50 L 04/26/24 08:00 Resp 18 04/26/24 08:00 BP 128/53 04/26/24 08:00 Pulse Ox 98 04/26/24 08:00 FiO2 Intake & Output 04/25/24 04/26/24 04/26/24 18:59 06:59 18:59 Intake Total 1020 10 118 Output Total 1900 Balance -880 10 118 Weight 49.895 kg 47.6 kg Intake: IV 10 Invasive Line 2 10 Oral 1020 118 Output: Urine 1900 Other: Voiding Method External Catheter External Catheter # Bowel Movements 1 - Exam No acute distress, oriented 3. Nasal O2 in place. HEENT examination is grossly unremarkable. Mucous membranes are moist. No oral lesions. Neck supple. Full range of motion. No adenopathy thyromegaly or neck vein distention. Cardiovascular examination reveals regular rhythm rate. S1-S2 normal. No S3 or S4. No discernible murmur noted. Lungs reveal bilateral scattered rhonchi. No wheezes or crackles. Breath sounds equal bilaterally. Abdomen soft bowel sounds are heard. No masses or tenderness. Extremities are intact. No cyanosis clubbing or edema. Skin is without rash or lesion. Neurologic examination is brief but nonfocal. - Labs CBC & Chem 7: 04/25/24 07:22 04/25/24 07:22 Assessment and Plan Assessment: Acute hypoxemic respiratory failure secondary to an acute exacerbation of diastolic congestive heart failure and suspected COVID-19 pneumonia. Acute COVID infection. Troponin leak. History of diastolic congestive heart failure. History of valvular heart disease. Hypertension. Hyperlipidemia. Paroxysmal atrial fibrillation. History of depression. Plan: Plan dated April 24, 2024. The patient is seen today in room 372. She is currently on 4 L of oxygen. No IV fluids. She appears relatively comfortable. Her only concern is that she will not be discharged home without oxygen. We told her that we would assess her prior to discharge, to determine how much oxygen she needs, and when she needs to use it. She continues on IV diuretics, Eliquis, Decadron, and vitamin supplements. Labs, x-rays, and all medications are reviewed. Prognosis is guarded. Plan dated April 25, 2024. The patient is doing better. She continues on nasal O2 at 4 L. The patient is resting comfortably in bed. She is alert and awake. She denies any significant shortness of breath. Her shortness of breath occurs primarily when she gets up to go to the bathroom. She is still very concerned as to whether or not she will be discharged home on oxygen. I told her that we would assess her, prior to discharge. Labs, x-rays, medications are reviewed. We will continue to follow make recommendations along the way. Prognosis is guarded. Plan dated April 26, 2024. The patient does continue to improve albeit slowly. She continues on O2 at 4 L. The patient will likely need oxygen on discharge. Labs, x-rays, and medications are reviewed. The patient is resting in bed without any difficulty or distress. There is no conversational dyspnea, or use of accessory muscles. We will continue to follow make recommendations. Prognosis is guarded. Time with Patient: Greater than 30
--- NOTE | 2024-04-26 15:09 | P.PN ---
Subjective Progress Note Date: 04/26/24 This is a 79-year-old female with a past medical history significant for coronary artery disease with previous CABG, valvular heart disease, carotid stenosis, paroxysmal atrial fibrillation, hypertension, hyperlipidemia, CVA, and nicotine dependence. Patient follows in the office with Dr. Cespedes. We have been asked to see the patient in consultation for CHF. Patient examined at the bedside in the emergency room. Patient states that she has been feeling short of breath for the past few days. She also reports having a cough. She denies having any chest pain or pressure. Patient presented to the hospital for further evaluation. Patient was found to have COVID-19. Additionally patient was found to be in acute CHF and was started on IV Lasix. She continues to be short of breath and has a frequent cough at the time of examination. DIAGNOSTICS: - EKG reveals sinus bradycardia with left bundle branch block - Chest xray CHF with pulmonary vascular congestion. Small left and trace right pleural effusions with adjacent atelectasis and/or consolidation - Laboratory data: WBC 6.9. Hemoglobin 10.0. Platelet count 185. D-dimer 0.40. Sodium 138. Potassium 4.3. BUN 12. Creatinine 0.68. Troponin 0.310. 0.325. 0.283. proBNP 29,900. - Current home cardiac medications include Plavix 75 mg daily, Lasix 40 mg twice a day, Imdur 30 mg daily, metoprolol to tartrate 12.5 mg daily, atorvastatin 80 mg at night, Eliquis 2.5 mg twice a day. - Most recent echocardiogram obtained in May 2023 revealed ejection fraction 50 to 55%, moderate aortic regurgitation. Aortic stenosis with peak gr adient 27 mmHg and mean gradient 16 mmHg, mild tricuspid regurgitation, mild MR - Cardiac catheterization history: May 2023 revealing severe triple-vessel coronary artery disease. Patent BENSON to LAD. Patent SVG to OM. Patent SVG to RCA with intermediate disease involving PLV branch of the RCA documented to be nonflow limiting by Doppler wire. Normal left-sided filling pressures. 04/24/2024 Patient was seen and examined resting comfortably in bed. She is overall feeling a bit better. Her breathing is mildly improved. Echocardiogram was reviewed and showed severe LV systolic dysfunction with an ejection fraction of 20 to 25%, moderate aortic stenosis with a peak gradient of 56 mmHg and a mean gradient of 26 mmHg, mild to moderate aortic regurgitation and mild MR. 04/25/2024 Patient was seen and examined resting comfortably in bed. She feels her breathing is mildly improved. Continues with a cough but better. She is tolerating lisinopril. Renal function is stable. Vital signs are stable. 04/26/2024 BP 128/53, heart rate 55 beats/ minute, BUN 7, creatinine 0.7, Hb 10.6 PHYSICAL EXAM: VITAL SIGNS: Reviewed. GENERAL: Well-developed in no acute distress. HEENT: Head is normocephalic. Pupils are equal, round. Sclerae anicteric. Mucous membranes of the mouth are moist. Neck supple. No JVD or thyromegaly LUNGS: Respirations even and unlabored. Lungs with faint crackles bilaterally wheezing throughout HEART: Regular rate and rhythm. S1 and S2 heard. Systolic murmur noted ABDOMEN: Soft. Nondistended. Nontender. EXTREMITIES: Normal range of motion. No clubbing or cyanosis. Peripheral pulses intact. Trace lower extremity edema NEUROLOGIC: Awake and alert. Oriented x 3. ASSESSMENT: Shortness of breath Acute on chronic heart failure with reduced EF, 20-25% Aortic stenosis Acute COVID-19 Elevated troponins, flat, type II [place] secondary to oxygen supply/demand mismatch Coronary artery disease with previous four-vessel CABG, 2011 Paroxysmal atrial fibrillation History of hypertension History of hyperlipidemia History of CVA Nicotine dependence PLAN: Daily weights, accurate intake and output, and monitoring of kidney function Smoking cessation recommended Patient will require further evaluation once acute infection has cleared to rule out low gradient low flow severe aortic stenosis. She will follow-up with Dr. Cespedes as an outpatient. We will continue to follow the patient and provide further recommendations accordingly. Objective - Vital Signs Vital signs: Vital Signs Temp 97.6 F 04/26/24 08:00 Pulse 50 L 04/26/24 08:00 Resp 18 04/26/24 08:00 BP 128/53 04/26/24 08:00 Pulse Ox 98 04/26/24 08:00 FiO2 Intake & Output 04/25/24 04/26/24 04/26/24 18:59 06:59 18:59 Intake Total 1020 10 118 Output Total 1900 Balance -880 10 118 Weight 49.895 kg 47.6 kg Intake: IV 10 Invasive Line 2 10 Oral 1020 118 Output: Urine 1900 Other: Voiding Method External Catheter External Catheter # Bowel Movements 1 - Labs CBC & Chem 7: 04/25/24 07:22 04/25/24 07:22
--- NOTE | 2024-04-26 15:52 | P.PN ---
Subjective Progress Note Date: 04/26/24 Principal diagnosis: Reason for follow-up is COVID-19 Patient is a 79-year-old female with a past medical history significant for hypertension hyperlipidemia SC osteoarthritis, presenting to the hospital for evaluation of difficulty breathing, patient did tested positive for COVID-19 chest x-ray was mostly pulmonary vascular congestion. On today's evaluation that is 04/26/2024,the patient denies any fever or any chills, patient is breathing slightly comfortably on 4 L nasal oxygen the patient denies chest pain or any worsening cough, patient denies abdominal kim n, no nausea vomiting or diarrhea. Patient white count was 8.4 normal as of yesterday no CBC done today Objective - Vital Signs Vital signs: Vital Signs Temp 97.7 F 04/26/24 12:00 Pulse 52 L 04/26/24 14:00 Resp 18 04/26/24 14:00 BP 101/46 04/26/24 12:00 Pulse Ox 95 04/26/24 12:00 FiO2 Intake & Output 04/25/24 04/26/24 04/26/24 18:59 06:59 18:59 Intake Total 1020 10 118 Output Total 1900 Balance -880 10 118 Weight 49.895 kg 47.6 kg Intake: IV 10 Invasive Line 2 10 Oral 1020 118 Output: Urine 1900 Other: Voiding Method External Catheter External Catheter External Catheter # Bowel Movements 1 - Exam GENERAL DESCRIPTION: An elderly female lying in bed in no distress RESPIRATORY SYSTEM: Unlabored breathing , decreased intensity of breath sounds HEART: S1 S2 regular rate and rhythm , ABDOMEN: Soft , no tenderness EXTREMITIES: No edema feet - Labs CBC & Chem 7: 04/25/24 07:22 04/25/24 07:22 Assessment and Plan (1) COVID-19 Current Visit: Yes Status: Acute Code(s): U07.1 - COVID-19 SNOMED Code(s): 374723242 Plan: 1patient presented to hospital with increasing shortness of breath cough bring up some yellow sputum in this patient did have bibasilar atelectasis versus infiltrate did have hypoxemia tested positive for COVID-19 possible COVID-19 pneumonia secondary bacterial pneumonia less likely but not entirely excluded 2-sputum has not been obtained, patient did have normal procalcitonin level 3-diarrhea improved with Questran to continue as needed 4-patient to continue with dexamethasone along with with Eliquis and zinc and ascorbic acid and droplet isolation Dictation was produced using [employer] dictation software. please excuse any grammatical, word or spelling errors. Time with Patient: Less than 30
--- NOTE | 2024-04-26 23:40 | P.PN ---
Subjective Progress Note Date: 04/26/24 This is a 79-year-old female with a past medical history significant for coronary artery disease with previous CABG, valvular heart disease, carotid stenosis, paroxysmal atrial fibrillation, hypertension, hyperlipidemia, CVA, and nicotine dependence. Patient follows in the office with Dr. Cespedes. We have been asked to see the patient in consultation for CHF. Patient examined at the bedside in the emergency room. Patient states that she has been feeling short of breath for the past few days. She also reports having a cough. She denies having any chest pain or pressure. Patient presented to the hospital for further evaluation. Patient was found to have COVID-19. Additionally patient was found to be in acute CHF and was started on IV Lasix. She continues to be short of breath and has a frequent cough at the time of examination. DIAGNOSTICS: - EKG reveals sinus bradycardia with left bundle branch block - Chest xray CHF with pulmonary vascular congestion. Small left and trace right pleural effusions with adjacent atelectasis and/or consolidation - Laboratory data: WBC 6.9. Hemoglobin 10.0. Platelet count 185. D-dimer 0.40. Sodium 138. Potassium 4.3. BUN 12. Creatinine 0.68. Troponin 0.310. 0.325. 0.283. proBNP 29,900. - Current home cardiac medications include Plavix 75 mg daily, Lasix 40 mg twice a day, Imdur 30 mg daily, metoprolol to tartrate 12.5 mg daily, atorvastatin 80 mg at night, Eliquis 2.5 mg twice a day. - Most recent echocardiogram obtained in May 2023 revealed ejection fraction 50 to 55%, moderate aortic regurgitation. Aortic stenosis with peak gr adient 27 mmHg and mean gradient 16 mmHg, mild tricuspid regurgitation, mild MR - Cardiac catheterization history: May 2023 revealing severe triple-vessel coronary artery disease. Patent BENSON to LAD. Patent SVG to OM. Patent SVG to RCA with intermediate disease involving PLV branch of the RCA documented to be nonflow limiting by Doppler wire. Normal left-sided filling pressures. 04/24/2024 Patient was seen and examined resting comfortably in bed. She is overall feeling a bit better. Her breathing is mildly improved. Echocardiogram was reviewed and showed severe LV systolic dysfunction with an ejection fraction of 20 to 25%, moderate aortic stenosis with a peak gradient of 56 mmHg and a mean gradient of 26 mmHg, mild to moderate aortic regurgitation and mild MR. 04/25/2024 Patient was seen and examined resting comfortably in bed. She feels her breathing is mildly improved. Continues with a cough but better. She is tolerating lisinopril. Renal function is stable. Vital signs are stable. 04/26/24 Pt seen and evaluated, she continues to complain of cough today but denies shortness of breath. no abdominal pain. Vitals stable. Objective - Vital Signs Vital signs: Vital Signs Temp 97.5 F L 04/26/24 20:52 Pulse 57 L 04/26/24 20:52 Resp 20 04/26/24 20:52 BP 150/55 04/26/24 20:52 Pulse Ox 96 04/26/24 20:52 FiO2 Intake & Output 04/26/24 04/26/24 04/27/24 06:59 18:59 06:59 Intake Total 10 118 Output Total 600 Balance 10 -482 Weight 47.6 kg Intake: IV 10 Invasive Line 2 10 Oral 118 Output: Urine 600 Other: Voiding Method External Catheter External Catheter Toilet External Catheter - Exam Gen: well developed, no acute distress CV: RRR, no murmur Lung: Rhonchi, no rales Abd: soft, nontender - Labs CBC & Chem 7: 04/25/24 07:22 04/25/24 07:22 Assessment and Plan Plan: Continue with current regimen, closely monitor renal function and continue dexamethasone, vitamins
--- NOTE | 2024-04-27 13:45 | P.PN ---
Subjective Progress Note Date: 04/27/24 Principal diagnosis: Coronavirus infection. This is a pleasant 79-year-old female patient with a known history of atrial fibrillation anticoagulated with Eliquis, hyperlipidemia, hypertension, diastolic congestive heart failure, valvular heart disease scented here to the emergency room yesterday with a 3-day history of increasing shortness of breath, cough and congestion. Had productive cough with yellow sputum. She was having some chest discomfort mostly with coughing. X-ray revealed subtle scattered opacities suggestive of atypical pneumonia. Bilateral trace pleural effusions. Count 6.9. Hemoglobin 10.0. Platelets 181. D-dimer 0.40. Sodium 138. Potassium 4.3. Bicarb 26. BUN 12. Creatinine 0.68. Glucose 122. AST 37. ALT 16. Troponin 0.310, 0.325, 0.283. proBNP 29,900. Procalcitonin negative at 0.10. Influenza screen negative. RSV screen negative. COVID-19 screen positive. She is seen today in consultation in the emergency department. She is currently sitting up on a stretcher. Awake and alert in no acute distress. She is maintaining O2 saturations in the 90s on 3 L/min per nasal cannula. She does have a loose nonproductive cough. No fever or chills. No hemoptysis. The patient is seen today April 23, 2024 in follow-up in the emergency department. She is currently sitting up in bed. Awake and alert in no acute distress. Feeling about the same today as compared to yesterday. Still with a loose cough and congestion. Maintaining good O2 saturations in the high 90s on 2 L/min per nasal cannula. She has been afebrile. Hemodynamically stable. White count 12.4. Hemoglobin 11.3. Platelets 191. Sodium 136. Potassium 3.4. Bicarb 31. BUN 21. Creatinine 0.70. She remains on ceftriaxone. Continued on Decadron. Continued on vitamin supplements. Continued on IV diuretics. Anticoagulated with Eliquis. Progress note dated April 24, 2024. The patient is seen today in room 372. The patient is resting comfortably in bed. She is on O2 at 4 L. She had mentioned initially she was concerned that she would be discharged home without oxygen. We explained that we would assess her prior to discharge, to determine if she needed oxygen, at rest, on exertion, or 24/7. Current labs include a white count 9.8, hemoglobin 11.4, hematocrit 35.2, and a platelet count of 178,000. Sodium 139, potassium 3.9, chlorides 102, CO2 34, BUN 18, creatinine 0.73. Glucose is 91. Calcium is 8.8. Chest x- ray shows bibasilar infiltrates, and or small effusions, with some mild fluid overload. Progress note dated April 25, 2024. 79-year-old female seen again in room 372. Currently, the patient is resting comfortably in bed. She is alert and awake. She is on 4 L nasal cannula. She is not receiving any IV fluids. She does feel better today. She still is very concerned about whether or not she will need oxygen at home. Labs include a white count 8.4, hemoglobin 10.6, hematocrit 32.9, platelet count 181,000. Sodium 138, potassium 3.6, chlorides 103, CO2 29, BUN 24, creatinine 0.74. Glucose is 82. Blood cultures are currently negative. Chest x-ray has been reviewed. Progress note dated April 26, 2024. 79-year-old female who is seen again in room 372. Every time we going to the room, the patient asked us whether or not she is going to be discharged home on oxygen. I told her that she likely would need oxygen on discharge, and before she is discharged, we will assess her to see whether or not she needs oxygen all the time, or only when she is exerting herself. Currently, she continues on 4 L. She is not on any IV fluids. No new labs today. Progress note dated April 27, 2024. 79-year-old female seen again in room 372. The patient continues on nasal O2 at 3 L. No IV fluids. According to the nurseYulisa, the patient has been having issues with a low heart rate, secondary to her beta-blockers. Likely she is not ready for discharge today. No new labs today. Clinically from the pulmonary standpoint she is doing very well. From the pulmonary standpoint, she could be considered for possible discharge. Objective - Vital Signs Vital signs: Vital Signs Temp 97.9 F 04/27/24 08:00 Pulse 50 L 04/27/24 08:00 Resp 16 04/27/24 08:00 BP 132/71 04/27/24 08:00 Pulse Ox 100 04/27/24 08:00 FiO2 Intake & Output 04/26/24 04/27/24 04/27/24 18:59 06:59 18:59 Intake Total 118 Output Total 600 Balance -482 Weight 46.6 kg Intake: Oral 118 Output: Urine 600 Other: Voiding Method External Catheter Toilet Toilet External Catheter - Exam No acute distress, oriented 3. Nasal O2 in place, at 3 L. HEENT examination is grossly unremarkable. Mucous membranes are moist. No oral lesions. Neck supple. Full range of motion. No adenopathy thyromegaly or neck vein distention. Cardiovascular examination reveals regular rhythm rate. S1-S2 normal. No S3 or S4. No discernible murmur noted. Lungs reveal bilateral scattered rhonchi. No wheezes or crackles. Breath sounds equal bilaterally. Abdomen soft bowel sounds are heard. No masses or tenderness. Extremities are intact. No cyanosis clubbing or edema. Skin is without rash or lesion. Neurologic examination is brief but nonfocal. - Labs CBC & Chem 7: 04/25/24 07:22 04/25/24 07:22 Labs: Microbiology - Last 24 Hours (Table) 04/21/24 16:51 Blood Culture - Final Blood Assessment and Plan Assessment: Acute hypoxemic respiratory failure secondary to an acute exacerbation of diastolic congestive heart failure and suspected COVID-19 pneumonia. Acute COVID infection. Troponin leak. History of diastolic congestive heart failure. History of valvular heart disease. Hypertension. Hyperlipidemia. Paroxysmal atrial fibrillation. History of depression. Plan: Plan dated April 24, 2024. The patient is seen today in room 372. She is currently on 4 L of oxygen. No IV fluids. She appears relatively comfortable. Her only concern is that she will not be discharged home without oxygen. We told her that we would assess her prior to discharge, to determine how much oxygen she needs, and when she needs to use it. She continues on IV diuretics, Eliquis, Decadron, and vitamin supplements. Labs, x-rays, and all medications are reviewed. Prognosis is guarded. Plan dated April 25, 2024. The patient is doing better. She continues on nasal O2 at 4 L. The patient is resting comfortably in bed. She is alert and awake. She denies any significant shortness of breath. Her shortness of breath occurs primarily when she gets up to go to the bathroom. She is still very concerned as to whether or not she will be discharged home on oxygen. I told her that we would assess her, prior to discharge. Labs, x-rays, medications are reviewed. We will continue to follow make recommendations along the way. Prognosis is guarded. Plan dated April 26, 2024. The patient does continue to improve albeit slowly. She continues on O2 at 4 L. The patient will likely need oxygen on discharge. Labs, x-rays, and medications are reviewed. The patient is resting in bed without any difficulty or distress. There is no conversational dyspnea, or use of accessory muscles. We will continue to follow make recommendations. Prognosis is guarded. Plan dated April 27, 2024. The patient appears to be doing relatively well. The patient is currently on 3 L. She is resting comfortably in bed. She is awake and alert. She is not manifesting any signs or symptoms of respiratory distress. She has a number of questions today, and they are all answered. Most of her questions relate to the fact that she likely will need oxygen on discharge. The patient has been having some bradycardia, secondary to beta-blockers. Labs, x-rays, and all medications are reviewed. Prognosis is guarded. Time with Patient: Less than 30
--- NOTE | 2024-04-27 14:03 | P.PN ---
Subjective Progress Note Date: 04/27/24 This is a 79-year-old female with a past medical history significant for coronary artery disease with previous CABG, valvular heart disease, carotid stenosis, paroxysmal atrial fibrillation, hypertension, hyperlipidemia, CVA, and nicotine dependence. Patient follows in the office with Dr. Cespedes. We have been asked to see the patient in consultation for CHF. Patient examined at the bedside in the emergency room. Patient states that she has been feeling short of breath for the past few days. She also reports having a cough. She denies having any chest pain or pressure. Patient presented to the hospital for further evaluation. Patient was found to have COVID-19. Additionally patient was found to be in acute CHF and was started on IV Lasix. She continues to be short of breath and has a frequent cough at the time of examination. DIAGNOSTICS: - EKG reveals sinus bradycardia with left bundle branch block - Chest xray CHF with pulmonary vascular congestion. Small left and trace right pleural effusions with adjacent atelectasis and/or consolidation - Laboratory data: WBC 6.9. Hemoglobin 10.0. Platelet count 185. D-dimer 0.40. Sodium 138. Potassium 4.3. BUN 12. Creatinine 0.68. Troponin 0.310. 0.325. 0.283. proBNP 29,900. - Current home cardiac medications include Plavix 75 mg daily, Lasix 40 mg twice a day, Imdur 30 mg daily, metoprolol to tartrate 12.5 mg daily, atorvastatin 80 mg at night, Eliquis 2.5 mg twice a day. - Most recent echocardiogram obtained in May 2023 revealed ejection fraction 50 to 55%, moderate aortic regurgitation. Aortic stenosis with peak gr adient 27 mmHg and mean gradient 16 mmHg, mild tricuspid regurgitation, mild MR - Cardiac catheterization history: May 2023 revealing severe triple-vessel coronary artery disease. Patent BENSON to LAD. Patent SVG to OM. Patent SVG to RCA with intermediate disease involving PLV branch of the RCA documented to be nonflow limiting by Doppler wire. Normal left-sided filling pressures. 04/24/2024 Patient was seen and examined resting comfortably in bed. She is overall feeling a bit better. Her breathing is mildly improved. Echocardiogram was reviewed and showed severe LV systolic dysfunction with an ejection fraction of 20 to 25%, moderate aortic stenosis with a peak gradient of 56 mmHg and a mean gradient of 26 mmHg, mild to moderate aortic regurgitation and mild MR. 04/25/2024 Patient was seen and examined resting comfortably in bed. She feels her breathing is mildly improved. Continues with a cough but better. She is tolerating lisinopril. Renal function is stable. Vital signs are stable. 04/26/2024 BP 128/53, heart rate 55 beats/ minute, BUN 7, creatinine 0.7, Hb 10.6 04/27/24 Patient seen and examined. Patient had bradycardia down into the 30s during the night. She has not been receiving beta-[place] since 04/23 and will be discontinued. She can complains of cough and some shortness of breath. But no wheezing. She continues to feel tired and weak. No chest pain. PHYSICAL EXAM: VITAL SIGNS: Reviewed. GENERAL: Well-developed in no acute distress. HEENT: Head is normocephalic. Pupils are equal, round. Sclerae anicteric. Mucous membranes of the mouth are moist. Neck supple. No JVD or thyromegaly LUNGS: Respirations even and unlabored. Lungs with faint crackles bilaterally wheezing throughout HEART: Regular rate and rhythm. S1 and S2 heard. Systolic murmur noted ABDOMEN: Soft. Nondistended. Nontender. EXTREMITIES: Normal range of motion. No clubbing or cyanosis. Peripheral pulses intact. Trace lower extremity edema NEUROLOGIC: Awake and alert. Oriented x 3. ASSESSMENT: Shortness of breath Acute on chronic heart failure with reduced EF, 20-25% Aortic stenosis Acute COVID-19 Elevated troponins, flat, type II [place] secondary to oxygen supply/demand mismatch Coronary artery disease with previous four-vessel CABG, 2011 Paroxysmal atrial fibrillation History of hypertension History of hyperlipidemia History of CVA Nicotine dependence PLAN: Discontinue order for beta-[place] as patient is not receiving it due to bradycardia Continue oral Lasix Smoking cessation recommended Patient will require further evaluation of severe aortic stenosis once acute infection has cleared. She will follow-up with Dr. Cespedes as an outpatient. Nurse practitioner note has been reviewed, I agree with documented findings and plan of care. Patient was seen and examined. Objective - Vital Signs Vital signs: Vital Signs Temp 97.5 F L 04/26/24 20:52 Pulse 45 L 04/27/24 04:50 Resp 17 04/27/24 04:50 BP 125/70 04/27/24 04:50 Pulse Ox 99 04/27/24 04:50 FiO2 Intake & Output 04/26/24 04/27/24 04/27/24 18:59 06:59 18:59 Intake Total 118 Output Total 600 Balance -482 Weight 46.6 kg Intake: Oral 118 Output: Urine 600 Other: Voiding Method External Catheter Toilet External Catheter - Labs CBC & Chem 7: 04/25/24 07:22 04/25/24 07:22 Labs: Microbiology - Last 24 Hours (Table) 04/21/24 16:51 Blood Culture - Final Blood
[2024-04-27] MEDS: polyethylene glycoL 3350 17 GM POWD.PACK PO SCH (16:17)
[2024-04-27 17:11] VITALS: TEMP 97.7
[2024-04-27 20:04] VITALS: RESP 18
[2024-04-28 08:19] VITALS: BP 137/59
--- NOTE | 2024-04-28 08:36 | P.PN ---
Subjective Progress Note Date: 04/28/24 This is a 79-year-old female with a past medical history significant for coronary artery disease with previous CABG, valvular heart disease, carotid stenosis, paroxysmal atrial fibrillation, hypertension, hyperlipidemia, CVA, and nicotine dependence. Patient follows in the office with Dr. Cespedes. We have been asked to see the patient in consultation for CHF. Patient examined at the bedside in the emergency room. Patient states that she has been feeling short of breath for the past few days. She also reports having a cough. She denies having any chest pain or pressure. Patient presented to the hospital for further evaluation. Patient was found to have COVID-19. Additionally patient was found to be in acute CHF and was started on IV Lasix. She continues to be short of breath and has a frequent cough at the time of examination. DIAGNOSTICS: - EKG reveals sinus bradycardia with left bundle branch block - Chest xray CHF with pulmonary vascular congestion. Small left and trace right pleural effusions with adjacent atelectasis and/or consolidation - Laboratory data: WBC 6.9. Hemoglobin 10.0. Platelet count 185. D-dimer 0.40. Sodium 138. Potassium 4.3. BUN 12. Creatinine 0.68. Troponin 0.310. 0.325. 0.283. proBNP 29,900. - Current home cardiac medications include Plavix 75 mg daily, Lasix 40 mg twice a day, Imdur 30 mg daily, metoprolol to tartrate 12.5 mg daily, atorvastatin 80 mg at night, Eliquis 2.5 mg twice a day. - Most recent echocardiogram obtained in May 2023 revealed ejection fraction 50 to 55%, moderate aortic regurgitation. Aortic stenosis with peak gr adient 27 mmHg and mean gradient 16 mmHg, mild tricuspid regurgitation, mild MR - Cardiac catheterization history: May 2023 revealing severe triple-vessel coronary artery disease. Patent BENSON to LAD. Patent SVG to OM. Patent SVG to RCA with intermediate disease involving PLV branch of the RCA documented to be nonflow limiting by Doppler wire. Normal left-sided filling pressures. 04/24/2024 Patient was seen and examined resting comfortably in bed. She is overall feeling a bit better. Her breathing is mildly improved. Echocardiogram was reviewed and showed severe LV systolic dysfunction with an ejection fraction of 20 to 25%, moderate aortic stenosis with a peak gradient of 56 mmHg and a mean gradient of 26 mmHg, mild to moderate aortic regurgitation and mild MR. 04/25/2024 Patient was seen and examined resting comfortably in bed. She feels her breathing is mildly improved. Continues with a cough but better. She is tolerating lisinopril. Renal function is stable. Vital signs are stable. 04/26/24 Pt seen and evaluated, she continues to complain of cough today but denies shortness of breath. no abdominal pain. Vitals stable. 04/27/24 Pt feels her cough is improving and less short of breath. She is requiring less oxygen today. Objective - Vital Signs Vital signs: Vital Signs Temp 97.7 F 04/27/24 20:00 Pulse 53 L 04/28/24 08:00 Resp 18 04/28/24 08:00 BP 137/59 04/28/24 08:00 Pulse Ox 97 04/28/24 08:00 FiO2 Intake & Output 04/27/24 04/28/24 04/28/24 18:59 06:59 18:59 Intake Total 480 Balance 480 Intake: Oral 480 Other: Voiding Method Toilet Toilet - Exam Gen: well developed, no acute distress CV: RRR, no murmur Lung: Rhonchi, no rales Abd: soft, nontender - Labs CBC & Chem 7: 04/25/24 07:22 04/25/24 07:22 Labs: Microbiology - Last 24 Hours (Table) 04/21/24 16:51 Blood Culture - Final Blood Assessment and Plan Plan: Continue with current regimen, closely monitor renal function and continue dexamethasone, vitamins. Continue to wean oxygen as tolerated and discharge planning
[2024-04-28 10:00] VITALS: PULSE 49
--- NOTE | 2024-04-28 12:53 | P.PN ---
Subjective Progress Note Date: 04/27/24 Principal diagnosis: Reason for follow-up is COVID-19 Patient is a 79-year-old female with a past medical history significant for hypertension hyperlipidemia [place] osteoarthritis, presenting to the hospital for evaluation of difficulty breathing, patient did tested positive for COVID-19 chest x-ray was mostly pulmonary vascular congestion. On today's evaluation that is 04/27/2024,the patient remains to be afebrile, patient is on 4 L nasal cannula supplemental oxygen and denies any shortness of breath no chest pain or any worsening cough.Patient denies having any nausea or vomiting, no abdominal pain and no diarrhea has been reported. No new lab has been obtained today Objective - Vital Signs Vital signs: Vital Signs Temp 97.4 F L 04/27/24 12:00 Pulse 46 L 04/27/24 14:00 Resp 18 04/27/24 14:00 BP 94/49 04/27/24 12:00 Pulse Ox 94 L 04/27/24 12:00 FiO2 Intake & Output 04/26/24 04/27/24 04/27/24 18:59 06:59 18:59 Intake Total 118 240 Output Total 600 Balance -482 240 Weight 46.6 kg Intake: Oral 118 240 Output: Urine 600 Other: Voiding Method External Catheter Toilet Toilet External Catheter - Exam GENERAL DESCRIPTION: An elderly female lying in bed in no distress RESPIRATORY SYSTEM: Unlabored breathing , decreased intensity of breath sounds HEART: S1 S2 regular rate and rhythm , ABDOMEN: Soft , no tenderness EXTREMITIES: No edema feet - Labs CBC & Chem 7: 04/25/24 07:22 04/25/24 07:22 Labs: Microbiology - Last 24 Hours (Table) 04/21/24 16:51 Blood Culture - Final Blood Assessment and Plan (1) COVID-19 Current Visit: Yes Status: Acute Code(s): U07.1 - COVID-19 SNOMED Code(s): 829861612 Plan: 1patient presented to hospital with increasing shortness of breath cough bring up some yellow sputum in this patient did have bibasilar atelectasis versus infiltrate did have hypoxemia tested positive for COVID-19 possible COVID-19 pneumonia secondary bacterial pneumonia less likely but not entirely excluded 2-sputum has not been obtained, patient did have normal procalcitonin level 3-patient diarrhea improved with Questran to continue as needed 4-patient respiratory status has shown some improvement, to continue with dexamethasone along with with Eliquis and zinc and ascorbic acid and droplet isolation Dictation was produced using [employer] dictation software. please excuse any grammatical, word or spelling errors. Time with Patient: Less than 30
--- NOTE | 2024-04-28 12:54 | P.PN ---
Subjective Progress Note Date: 04/28/24 Principal diagnosis: Reason for follow-up is COVID-19 Patient is a 79-year-old female with a past medical history significant for hypertension hyperlipidemia [place] osteoarthritis, presenting to the hospital for evaluation of difficulty breathing, patient did tested positive for COVID-19 chest x-ray was mostly pulmonary vascular congestion. On today's evaluation that is 04/28/2024, the patient continues to be afebrile, the patient is down to 3 L current oxygen and breathing comfortably, the Pt denies having any chest pain or any worsening cough, the patient denies having any abdominal pain no vomiting or any diarrhea, patient complaining of mostly lower back pain and concerned about her pain medication being cut. No new labs has been repeated today Objective - Vital Signs Vital signs: Vital Signs Temp 97.7 F 04/27/24 20:00 Pulse 49 L 04/28/24 08:00 Resp 18 04/28/24 08:00 BP 137/59 04/28/24 08:00 Pulse Ox 97 04/28/24 08:00 FiO2 Intake & Output 04/27/24 04/28/24 04/28/24 18:59 06:59 18:59 Intake Total 480 Balance 480 Intake: Oral 480 Other: Voiding Method Toilet Toilet # Bowel Movements 1 - Exam GENERAL DESCRIPTION: An elderly female lying in bed in no distress RESPIRATORY SYSTEM: Unlabored breathing , decreased intensity of breath sounds HEART: S1 S2 regular rate and rhythm , ABDOMEN: Soft , no tenderness EXTREMITIES: No edema feet - Labs CBC & Chem 7: 04/25/24 07:22 04/25/24 07:22 Assessment and Plan (1) COVID-19 Current Visit: Yes Status: Acute Code(s): U07.1 - COVID-19 SNOMED Code(s): 254771856 Plan: 1patient presented to hospital with increasing shortness of breath cough bring up some yellow sputum in this patient did have bibasilar atelectasis versus infiltrate did have hypoxemia tested positive for COVID-19 possible COVID-19 pneumonia secondary bacterial pneumonia less likely but not entirely excluded 2-sputum has not been obtained, patient did have normal procalcitonin level 3-patient diarrhea improved with Questran to continue as needed 4-patient respiratory status has shown some improvement, patient currently being treated with dexamethasone along with with Eliquis and zinc and ascorbic acid and no need for antiviral or antibiotics on discharge Dictation was produced using [employer] dictation software. please excuse any grammatical, word or spelling errors. Time with Patient: Less than 30
--- NOTE | 2024-04-28 14:37 | P.PN ---
Subjective Progress Note Date: 04/28/24 This is a 79-year-old female with a past medical history significant for coronary artery disease with previous CABG, valvular heart disease, carotid stenosis, paroxysmal atrial fibrillation, hypertension, hyperlipidemia, CVA, and nicotine dependence. Patient follows in the office with Dr. Cespedes. We have been asked to see the patient in consultation for CHF. Patient examined at the bedside in the emergency room. Patient states that she has been feeling short of breath for the past few days. She also reports having a cough. She denies having any chest pain or pressure. Patient presented to the hospital for further evaluation. Patient was found to have COVID-19. Additionally patient was found to be in acute CHF and was started on IV Lasix. She continues to be short of breath and has a frequent cough at the time of examination. DIAGNOSTICS: - EKG reveals sinus bradycardia with left bundle branch block - Chest xray CHF with pulmonary vascular congestion. Small left and trace right pleural effusions with adjacent atelectasis and/or consolidation - Laboratory data: WBC 6.9. Hemoglobin 10.0. Platelet count 185. D-dimer 0.40. Sodium 138. Potassium 4.3. BUN 12. Creatinine 0.68. Troponin 0.310. 0.325. 0.283. proBNP 29,900. - Current home cardiac medications include Plavix 75 mg daily, Lasix 40 mg twice a day, Imdur 30 mg daily, metoprolol to tartrate 12.5 mg daily, atorvastatin 80 mg at night, Eliquis 2.5 mg twice a day. - Most recent echocardiogram obtained in May 2023 revealed ejection fraction 50 to 55%, moderate aortic regurgitation. Aortic stenosis with peak gr adient 27 mmHg and mean gradient 16 mmHg, mild tricuspid regurgitation, mild MR - Cardiac catheterization history: May 2023 revealing severe triple-vessel coronary artery disease. Patent BENSON to LAD. Patent SVG to OM. Patent SVG to RCA with intermediate disease involving PLV branch of the RCA documented to be nonflow limiting by Doppler wire. Normal left-sided filling pressures. 04/24/2024 Patient was seen and examined resting comfortably in bed. She is overall feeling a bit better. Her breathing is mildly improved. Echocardiogram was reviewed and showed severe LV systolic dysfunction with an ejection fraction of 20 to 25%, moderate aortic stenosis with a peak gradient of 56 mmHg and a mean gradient of 26 mmHg, mild to moderate aortic regurgitation and mild MR. 04/25/2024 Patient was seen and examined resting comfortably in bed. She feels her breathing is mildly improved. Continues with a cough but better. She is tolerating lisinopril. Renal function is stable. Vital signs are stable. 04/26/2024 BP 128/53, heart rate 55 beats/ minute, BUN 7, creatinine 0.7, Hb 10.6 04/27/24 Patient seen and examined. Patient had bradycardia down into the 30s during the night. She has not been receiving beta-[place] since 04/23 and will be discontinued. She can complains of cough and some shortness of breath. But no wheezing. She continues to feel tired and weak. No chest pain. 04/28/24 Patient seen and examined. She states that her shortness of breath is better and she seems to be getting stronger. She denies having any chest pain. Blood pressure 137/59, heart rate in the 40s and 50s, pulse ox 97% on 3 L nasal cannula. PHYSICAL EXAM: VITAL SIGNS: Reviewed. GENERAL: Well-developed in no acute distress. HEENT: Head is normocephalic. Pupils are equal, round. Sclerae anicteric. Mucous membranes of the mouth are moist. Neck supple. No JVD or thyromegaly LUNGS: Respirations even and unlabored. Lungs with faint crackles bilaterally wheezing throughout HEART: Regular rate and rhythm. S1 and S2 heard. Systolic murmur noted ABDOMEN: Soft. Nondistended. Nontender. EXTREMITIES: Normal range of motion. No clubbing or cyanosis. Peripheral pulses intact. Trace lower extremity edema NEUROLOGIC: Awake and alert. Oriented x 3. ASSESSMENT: Shortness of breath Acute on chronic heart failure with reduced EF, 20-25% Aortic stenosis Acute COVID-19 Elevated troponins, flat, type II IA secondary to oxygen supply/demand mismatch Coronary artery disease with previous four-vessel CABG, 2011 Paroxysmal atrial fibrillation History of hypertension History of hyperlipidemia History of CVA Nicotine dependence PLAN: No beta-orlando due to bradycardia Continue oral Lasix Smoking cessation recommended Patient will require further evaluation of severe aortic stenosis once acute infection has cleared. She will follow-up with Dr. Cespedes as an outpatient. Patient is cleared for discharge from cardiology. Nurse practitioner note has been reviewed, I agree with documented findings and plan of care. Patient was seen and examined. Objective - Vital Signs Vital signs: Vital Signs Temp 97.7 F 04/27/24 20:00 Pulse 53 L 04/28/24 08:00 Resp 18 04/28/24 08:00 BP 137/59 04/28/24 08:00 Pulse Ox 97 04/28/24 08:00 FiO2 Intake & Output 04/27/24 04/28/24 04/28/24 18:59 06:59 18:59 Intake Total 480 Balance 480 Intake: Oral 480 Other: Voiding Method Toilet Toilet # Bowel Movements 1 - Labs CBC & Chem 7: 04/25/24 07:22 04/25/24 07:22 Labs: Microbiology - Last 24 Hours (Table) 04/21/24 16:51 Blood Culture - Final Blood
--- NOTE | 2024-04-28 14:39 | P.PN ---
Subjective Progress Note Date: 04/28/24 Principal diagnosis: Coronavirus infection. This is a pleasant 79-year-old female patient with a known history of atrial fibrillation anticoagulated with Eliquis, hyperlipidemia, hypertension, diastolic congestive heart failure, valvular heart disease scented here to the emergency room yesterday with a 3-day history of increasing shortness of breath, cough and congestion. Had productive cough with yellow sputum. She was having some chest discomfort mostly with coughing. X-ray revealed subtle scattered opacities suggestive of atypical pneumonia. Bilateral trace pleural effusions. Count 6.9. Hemoglobin 10.0. Platelets 181. D-dimer 0.40. Sodium 138. Potassium 4.3. Bicarb 26. BUN 12. Creatinine 0.68. Glucose 122. AST 37. ALT 16. Troponin 0.310, 0.325, 0.283. proBNP 29,900. Procalcitonin negative at 0.10. Influenza screen negative. RSV screen negative. COVID-19 screen positive. She is seen today in consultation in the emergency department. She is currently sitting up on a stretcher. Awake and alert in no acute distress. She is maintaining O2 saturations in the 90s on 3 L/min per nasal cannula. She does have a loose nonproductive cough. No fever or chills. No hemoptysis. The patient is seen today April 23, 2024 in follow-up in the emergency department. She is currently sitting up in bed. Awake and alert in no acute distress. Feeling about the same today as compared to yesterday. Still with a loose cough and congestion. Maintaining good O2 saturations in the high 90s on 2 L/min per nasal cannula. She has been afebrile. Hemodynamically stable. White count 12.4. Hemoglobin 11.3. Platelets 191. Sodium 136. Potassium 3.4. Bicarb 31. BUN 21. Creatinine 0.70. She remains on ceftriaxone. Continued on Decadron. Continued on vitamin supplements. Continued on IV diuretics. Anticoagulated with Eliquis. Progress note dated April 24, 2024. The patient is seen today in room 372. The patient is resting comfortably in bed. She is on O2 at 4 L. She had mentioned initially she was concerned that she would be discharged home without oxygen. We explained that we would assess her prior to discharge, to determine if she needed oxygen, at rest, on exertion, or 24/7. Current labs include a white count 9.8, hemoglobin 11.4, hematocrit 35.2, and a platelet count of 178,000. Sodium 139, potassium 3.9, chlorides 102, CO2 34, BUN 18, creatinine 0.73. Glucose is 91. Calcium is 8.8. Chest x- ray shows bibasilar infiltrates, and or small effusions, with some mild fluid overload. Progress note dated April 25, 2024. 79-year-old female seen again in room 372. Currently, the patient is resting comfortably in bed. She is alert and awake. She is on 4 L nasal cannula. She is not receiving any IV fluids. She does feel better today. She still is very concerned about whether or not she will need oxygen at home. Labs include a white count 8.4, hemoglobin 10.6, hematocrit 32.9, platelet count 181,000. Sodium 138, potassium 3.6, chlorides 103, CO2 29, BUN 24, creatinine 0.74. Glucose is 82. Blood cultures are currently negative. Chest x-ray has been reviewed. Progress note dated April 26, 2024. 79-year-old female who is seen again in room 372. Every time we going to the room, the patient asked us whether or not she is going to be discharged home on oxygen. I told her that she likely would need oxygen on discharge, and before she is discharged, we will assess her to see whether or not she needs oxygen all the time, or only when she is exerting herself. Currently, she continues on 4 L. She is not on any IV fluids. No new labs today. Progress note dated April 27, 2024. 79-year-old female seen again in room 372. The patient continues on nasal O2 at 3 L. No IV fluids. According to the nurseYulisa, the patient has been having issues with a low heart rate, secondary to her beta-blockers. Likely she is not ready for discharge today. No new labs today. Clinically from the pulmonary standpoint she is doing very well. From the pulmonary standpoint, she could be considered for possible discharge. Progress note dated April 28, 2024. This is an 79-year-old female seen in room 372. The patient is doing very well. She is on 3 L. The patient denies any shortness of breath, cough, wheezing, chest tightness, or phlegm production. The patient is being evaluated for possible discharge. Labs, x-rays, and all medications are reviewed. Clinically, the patient is doing very well. Since I saw her yesterday, there have been no major changes in her health. She will be discharged home on oxygen therapy. Objective - Vital Signs Vital signs: Vital Signs Temp 97.7 F 04/27/24 20:00 Pulse 49 L 04/28/24 08:00 Resp 18 04/28/24 08:00 BP 137/59 04/28/24 08:00 Pulse Ox 97 04/28/24 08:00 FiO2 Intake & Output 04/27/24 04/28/24 04/28/24 18:59 06:59 18:59 Intake Total 480 Balance 480 Intake: Oral 480 Other: Voiding Method Toilet Toilet # Bowel Movements 1 - Exam No acute distress, oriented 3. Nasal O2 in place, at 3 L. HEENT examination is grossly unremarkable. Mucous membranes are moist. No oral lesions. Neck supple. Full range of motion. No adenopathy thyromegaly or neck vein distention. Cardiovascular examination reveals regular rhythm rate. S1-S2 normal. No S3 or S4. No discernible murmur noted. Lungs reveal bilateral scattered rhonchi. No wheezes or crackles. Breath sounds equal bilaterally. Abdomen soft bowel sounds are heard. No masses or tenderness. Extremities are intact. No cyanosis clubbing or edema. Skin is without rash or lesion. Neurologic examination is brief but nonfocal. - Labs CBC & Chem 7: 04/25/24 07:22 04/25/24 07:22 Assessment and Plan Assessment: Acute hypoxemic respiratory failure secondary to an acute exacerbation of diastolic congestive heart failure and suspected COVID-19 pneumonia. Acute COVID infection. Troponin leak. History of diastolic congestive heart failure. History of valvular heart disease. Hypertension. Hyperlipidemia. Paroxysmal atrial fibrillation. History of depression. Plan: Plan dated April 24, 2024. The patient is seen today in room 372. She is currently on 4 L of oxygen. No IV fluids. She appears relatively comfortable. Her only concern is that she wi ll not be discharged home without oxygen. We told her that we would assess her prior to discharge, to determine how much oxygen she needs, and when she needs to use it. She continues on IV diuretics, Eliquis, Decadron, and vitamin supplements. Labs, x-rays, and all medications are reviewed. Prognosis is guarded. Plan dated April 25, 2024. The patient is doing better. She continues on nasal O2 at 4 L. The patient is resting comfortably in bed. She is alert and awake. She denies any significant shortness of breath. Her shortness of breath occurs primarily when she gets up to go to the bathroom. She is still very concerned as to whether or not she will be discharged home on oxygen. I told her that we would assess her, prior to discharge. Labs, x-rays, medications are reviewed. We will continue to follow make recommendations along the way. Prognosis is guarded. Plan dated April 26, 2024. The patient does continue to improve albeit slowly. She continues on O2 at 4 L. The patient will likely need oxygen on discharge. Labs, x-rays, and medications are reviewed. The patient is resting in bed without any difficulty or distress. There is no conversational dyspnea, or use of accessory muscles. We will continue to follow make recommendations. Prognosis is guarded. Plan dated April 27, 2024. The patient appears to be doing relatively well. The patient is currently on 3 L. She is resting comfortably in bed. She is awake and alert. She is not manifesting any signs or symptoms of respiratory distress. She has a number of questions today, and they are all answered. Most of her questions relate to the fact that she likely will need oxygen on discharge. The patient has been having some bradycardia, secondary to beta-blockers. Labs, x-rays, and all medications are reviewed. Prognosis is guarded. Plan dated April 28, 2024. The patient appears to be doing relatively well. The patient will be discharged home on oxygen, at 3 L. Labs, x-rays, and medications are reviewed. The patient denies any unusual or worsening shortness of breath, cough, wheezing, chest tightness, or phlegm production. Her biggest complaint is just generalized weakness. I told her this is pretty typical for a viral infection. No refills are needed. Prognosis is guarded. Time with Patient: Less than 30
== END 2024-04-28 13:28 | disposition home or self-care (01) | DRG 280 ==
LOC: EC 11:51 → 3SCARD 14:23
PROVIDERS: ADMIT Family Medicine; ATTEND Family Medicine
PROC: 05HA33Z Insertion of Infusion Device into Left Brachial Vein, Percutaneous Approach (ICD-10-PCS; principal; 2024-04-25)
DX: I11.0 Hypertensive heart disease with heart failure (principal); I50.23 Acute on chronic systolic (congestive) heart failure; I21.A1 Myocardial infarction type 2; J96.01 Acute respiratory failure with hypoxia; U07.1 COVID-19; J12.82 Pneumonia due to coronavirus disease 2019; E44.1 Mild protein-calorie malnutrition; Z68.1 Body mass index [BMI] 19.9 or less, adult; J84.9 Interstitial pulmonary disease, unspecified; I25.10 Atherosclerotic heart disease of native coronary artery without angina pectoris; I48.0 Paroxysmal atrial fibrillation; Z79.01 Long term (current) use of anticoagulants; K21.9 Gastro-esophageal reflux disease without esophagitis; F17.210 Nicotine dependence, cigarettes, uncomplicated; I35.0 Nonrheumatic aortic (valve) stenosis; E78.5 Hyperlipidemia, unspecified; I08.3 Combined rheumatic disorders of mitral, aortic and tricuspid valves; I44.7 Left bundle-branch block, unspecified; I25.2 Old myocardial infarction; R19.7 Diarrhea, unspecified; R00.1 Bradycardia, unspecified; Z79.02 Long term (current) use of antithrombotics/antiplatelets; Z86.73 Personal history of transient ischemic attack (TIA), and cerebral infarction without residual deficits; Z86.74 Personal history of sudden cardiac arrest; Z95.1 Presence of aortocoronary bypass graft; Z90.710 Acquired absence of both cervix and uterus; Z91.040 Latex allergy status
CPT/HCPCS: 36415; 71045; 71046; 80048; 80053; 83605; 83735; 83880; 84145; 84484; 85025; 85379; 85610; 85730; 87040; 87636; 93005; 93306; 94640; 96365; 96366; 96375; 96376; 99285

== ENCOUNTER → 2024-05-22 | Day surgery (SDC) | payer MEDICARE, BC ==
[~2024-05-22] MED LIST changes: +ALPRAZolam 0.25 MG TAB PO PRN; +ALPRAZolam 0.5 MG TAB PO PRN; +BENZOCAINE SPRAY 1 CAN TOPICAL PRN; +HEPARIN SODIUM,PORCINE (1 ML) 2,500 UNIT in SODIUM CHLORIDE 0.9% 250 ML IRRIGATION PRN; +HEPARIN SODIUM,PORCINE 10,000 UNIT in SODIUM CHLORIDE 0.9% 1,000 ML IRRIGATION PRN; +MIDAZOLAM 2 MG/2 ML VIAL IV PRN; +NITROGLYCERIN SL TABS 0.4 MG TAB SUBLINGUAL PRN; +RX INFO: IV CONTRAST WAS GIVEN 1 EACH MISC MISCELLANE PRN; +SODIUM CHLORIDE 0.9% 1,000 ML IV SCH; -SODIUM CHLORIDE 0.9% 1,000 ML in EMPTY BAG 1 BAG IV ONE; +fentaNYL (PF) 50 MCG/ML 2 ML AMP IVP PRN
[2024-05-22] MEDS: EMPTY BAG 1 BAG with SODIUM CHLORIDE 0.9% 1,000 ML IV ONE (06:52)
[2024-05-22] MEDS: ASPIRIN 325 MG TAB PO STA (06:58)
[2024-05-22] MEDS: ATORVASTATIN 80 MG TAB PO STA (06:58)
[2024-05-22] MEDS: IV FLUID CONTINUATION 1,000 ML IV ONE ×2 (07:09→07:39)
[2024-05-22 07:12] VITALS: TEMP 97.7
[2024-05-22] MEDS: BENZOCAINE SPRAY 1 EACH MM ONE ×2 (07:36)
[2024-05-22] MEDS: fentaNYL (PF) 50 MCG/ML 2 ML AMP IVP ONE (07:46)
[2024-05-22] MEDS: MIDAZOLAM 2 MG/2 ML VIAL IVP ONE (07:46)
--- NOTE | 2024-05-22 08:00 | P.PCN ---
Date of Procedure: 05/22/24 Operative Findings: TRANSESOPHAGEAL ECHOCARDIOGRAM MATERIAL INSPECTOR: CONCHITA JOHNS MD, RPVI INDICATION: Valvular heart disease SEDATION: Conscious sedation COMPLICATION: None LEVEL OF SEDATION Moderate with sedation length of 18 minutes PROCEDURE DESCRIPTION: After obtaining an informed consent, the patient was brought to transesophageal echocardiogram room. Pulse oximetry and heart monitors were attached to the patient. The patient throat was sprayed using lidocaine. The patient was turned into l eft lateral position. After that a bite guard was placed. After an appropriate conscious sedation was initiated, the transesophageal echocardiogram was advanced through a bite guard into the mid esophagus. A 2-D echocardiogram images, color Doppler images, continuous wave images, pulse-wave images, of various cardiac structure were performed. After that the transesophageal echocardiogram probe was advanced into the stomach and fixed to obtain transgastric view was. The probe was brought into the mid esophagus. Inter-atrial septum was interrogated using 2D images, color Doppler images, and then contrast study. After that transesophageal echocardiogram was withdrawn out and upon withdrawing the descending thoracic aorta all the way up to the arch was evaluated. CONCLUSION: 1. Impaired LV function with EF between 30 to 35% 2. Aortic sclerosis with possible bicuspid aortic valve. The mean gradient was 32 and peak gradient of 34 mmHg 3. Thickened mitral valve leaflets with mild mitral regurgitation 4. Mild to moderate tricuspid regurgitation 5. Intact interatrial septum 6. No evidence of pericardial effusion
[2024-05-22] MEDS: LIDOCAINE 1% INJ 10MG/ML (20 ML MDV) SQ ONE (08:04)
[2024-05-22] MEDS: HEPARIN SODIUM (1,000 UNIT/ML) 1,000 UNIT in SODIUM CHLORIDE 0.9% 1,000 ML IRRIGATION ONE (08:12)
[2024-05-22] MEDS: HEPARIN SODIUM,PORCINE (1 ML) 2,500 UNIT in SODIUM CHLORIDE 0.9% 250 ML IRRIGATION ONE (08:13)
[2024-05-22] MEDS: IOPAMIDOL-370 100ML BTL INJ ONE (08:58)
[2024-05-22] MEDS: HYDROmorphone 0.5 MG/0.5 ML SYRINGE IVP PRN (10:05)
[2024-05-22] MEDS: HYDROcodone/APAP 10-325MG 1 EACH TAB PO ONE (14:20)
[2024-05-22] MEDS: FUROSEMIDE 40 MG TAB PO STA (15:20)
[2024-05-22 18:40] VITALS: RESP 16
[2024-05-22 18:41] VITALS: BP 137/58; PULSE 56
--- NOTE | 2024-05-24 09:38 | P.PCN ---
Date of Procedure: 05/22/24 Operative Findings: CARDIAC CATHETERIZATION PERFORMING PHYSICIAN: Chuy Cespedes MD, RPVI PROCEDURE PERFORMED: 1. Selective right and left coronary angiogram and aortic root angiogram and coronary bypasses angiogram 2. Left heart catheterization and right heart catheterization 3. Ultrasound-guided access of the right common femoral artery and right common femoral vein INDICATION: Symptomatic 79-year-old female patient with a CAD and valvular heart disease COMPLICATION: None APPROACH: Right common femoral artery LEVEL OF SEDATION: Moderate with sedation in length of 60 minutes PROCEDURE DESCRIPTION: After obtaining an informed consent, the patient was brought to cardiac manager cardiac cath. Local anesthesia was performed using lidocaine subcutaneously. Right heart catheterization was performed using 6 Austrian [place] catheter The right common femoral artery was cannulated using Seldinger technique, the guidewire passed easily, following that we advanced a 6 Austrian sheath dilator assembly, the wire and dilator were removed and sheath was flushed. Selective right and left coronary angiogram using a 6-Austrian JR4 and JL catheters. Following that we did left heart catheterization using 6-Austrian pigtail catheter. The procedure was completed there was no complication. SELECTIVE CORONARY ANGIOGRAM: The right coronary artery: Large-caliber vessel and a dominant vessel and appears to be occluded Left main: Calcified with severe disease distally The left circumflex: Is occluded The left anterior descending artery: Is occluded Coronary bypasses angiogram The BENSON to LAD is patent The SVG to OM is patent The SVG to RCA is patent HEMODYNAMICS: Pulmonary capillary wedge pressure was 12 mmHg PA pressures were as follows systolic of 36 and diastolic of 7 and mean of 18 mmHg RV pressures were as follows systolic of 42 and end-diastolic of 5 mmHg Right atrial pressure was 1 mmHg LV pressures were as follows systolic of 142 and end-diastolic of 16 mmHg The cardiac output was 4.41 L/min with a cardiac index of 2.96 L/min/m The aortic valve peak gradient was 14.9 mmHg Aortic valve area was 1.09 cm with an area index of 0.73 cm/m AORTIC ROOT ANGIOGRAM: Was performed in the MALTESE projection and using a power injection. There is at least 3+ aortic insufficiency seen CONCLUSION: 1. Severe triple-vessel CAD with the patency of BENSON to LAD and SVG to OM and SVG to RCA 2. Normal right and left-sided filling pressures 3. Moderate aortic stenosis by area as well as by gradient and moderate to severe aortic insufficiency POSTPROCEDURE MANAGEMENT: Medical treatment at this point
== END ==
LOC: CATHCVL 06:10
PROVIDERS: ATTEND Internal Medicine Interventional Cardiology
DX: I08.1 Rheumatic disorders of both mitral and tricuspid valves (principal); I25.10 Atherosclerotic heart disease of native coronary artery without angina pectoris; I70.0 Atherosclerosis of aorta; I48.0 Paroxysmal atrial fibrillation; E78.5 Hyperlipidemia, unspecified; I10 Essential (primary) hypertension; I73.9 Peripheral vascular disease, unspecified; Z95.5 Presence of coronary angioplasty implant and graft; Z91.040 Latex allergy status; Z79.02 Long term (current) use of antithrombotics/antiplatelets; Z79.01 Long term (current) use of anticoagulants; Z79.899 Other long term (current) drug therapy
CPT/HCPCS: 93312; 93320; 93325; 99152; C1769 ×4; C1751; C1894; C1760; J2250; J1644 ×2; J2003; J3010; J1171; Q9967

== ENCOUNTER → 2024-10-25 | Outpatient (CLI) | payer MEDICARE, BC ==
[2024-10-25 13:30] LABS: African American GFR (CKD) >90 (>60 ml/min/1.73 sqM); Blood Urea Nitrogen 17 mg/dL (7-17); Non-African American GFR(CKD) 83 (>60 ml/min/1.73 sqM)
--- NOTE | 2024-10-25 14:51 | CT ---
EXAMINATION TYPE: CT abdomen pelvis w con DATE OF EXAM: 10/25/2024 COMPARISON: None CLINICAL INDICATION: Female, 79 years old with history of R10.84 generalized abdominal pain; PHH, abd ominal pain TECHNIQUE: Performed with Oral Contrast and with IV Contrast, patient injected with 100 ml mL of Isovue 300. CT DLP: 592.[address] CTDI: mGy Automated exposure control for dose reduction was used. FINDINGS: The lung bases are clear. The gallbladder is normal without distention, wall thickening, pericholecystic fluid or gallstones. T here is no biliary ductal dilatation. There is no focal mass or organomegaly involving the liver, pancreas, spleen or adrenal glands. There is no solid renal mass or hydronephrosis and there is homogeneous contrast enhancement of the r enal parenchyma. The caliber the abdominal aorta is normal is no retroperitoneal adenopathy or hemorr lui. The bowel loops are normal in caliber and there is no evidence of dilatation or obstruction. No infla mmatory changes are identified in the bowel wall or mesentery. There is no free intraperitoneal air or fluid. No pelvic mass, free fluid, abscess or adenopathy. 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 There are postsurgical changes of laminectomy and fusion in the lower lumbar spine. 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 There are no focal osseous lesions. IMPRESSION: 1. No acute changes within the abdomen or pelvis. 2. Laminectomy and fusion of the lumbar spine and marked multilevel degenerative disc disease through out the lumbar spine. [facility], , 10/25/2024 2:48 PM
== END | disposition home or self-care (01) ==
LOC: RADCTMAIN 12:37
PROVIDERS: ATTEND Family Medicine
DX: K59.00 Constipation, unspecified (principal); M51.360 Other intervertebral disc degeneration, lumbar region with discogenic back pain only; Z98.1 Arthrodesis status
CPT/HCPCS: 82565; 84520; 74177; 36415; Q9967